=== PATIENT | male | born 1950 | race Two or more races ===

== ENCOUNTER 2019-05-17 10:58 | Inpatient (IN) | payer MEDICARE ==
[~2019-05-17] VITALS: Ht 170.2 cm; Wt 78.6 kg
[~2019-05-17 10:58] MED LIST: ASPI-630 PO; ATORVASTATIN CA80 MG PO; FINA5TAB4 PO; FURO-68 PO; GLIM4TAB4 PO; INSU100I11 SQ; INSU100I13 SQ; INSU100V6 SQ; ISOS30TA4 PO; METF10007 PO; METO-239 PO; SULF-143 PO; TAMS0.4C97 PO; TICA90TA PO
[2019-05-17 11:15] VITALS: BP 134/69
[2019-05-17] MEDS ORDERED: e (11:55)
[2019-05-17] MEDS ORDERED: INSU100V37 SQ (11:55)
[2019-05-17] MEDS ORDERED: INSU100C4 SQ (11:55)
[2019-05-17] MEDS ORDERED: CLOP75TA PO (11:55)
[2019-05-17] MEDS ORDERED: BUME1TAB3 PO (11:55)
[2019-05-17] MEDS ORDERED: METO5TAB4 PO (11:55)
[2019-05-17] MEDS ORDERED: POTA20TA4 PO (11:55)
--- NOTE | 2019-05-17 12:17 | NUR ---
IP: Pt has a hx of (R)E.coli with ESBL in urine on 12/07/18. Pt to be in contact precautions until there are 2 negative urine cultures 7 days apart without antibiotics.
[2019-05-17] MEDS: INSULIN LISPRO 300 UNITS/3 ML VIAL. SQ SCH ×2 (12:30→16:48)
[2019-05-17] MEDS: IV NORMAL SALINE 1000ML BAG 1,000 ML IV SCH (12:49)
--- NOTE | 2019-05-17 12:57 | NUR ---
Wound Care: Pt admitted to hospital from [facility], new pt to clinic today, Yakut speaking, accompanied by dtr, this nurse translated for pt during consult. Pt presents with bilateral DFUs, left worse than the right, see wound intervention for further details. Pt states he was admitted to the hospital in [place] on 04/14 for I&D of left foot d/t infection/swelling, [place] last . Paperwork shows that he was taking Levaquin and clindamycin oral while he was in [place] but not longer taking antibiotics at this time. Left foot with multiple necrotic wounds from dorsal to plantar, lateral side and 2nd toe. Dr. Metz recommending admission to hospital, vascular and ID consults. Report given to CONCHA Reed in 5S. Spoke with Dr. Myers as well regarding wound assessment by this RN. Pt agreeable to admission but both pt and dtr stated that they are not agreeable to amputation if that is the recommendation during hospitalization.
[2019-05-17] MEDS: SODIUM HYPOCHLORITE 0.125% 473 ML BOTTLE. TP SCH (13:16)
--- NOTE | 2019-05-17 13:30 | PDOC ---
Infectious Disease Note Vital Sign Vital Signs Vital Signs Date Time Temp Pulse Resp B/P (MAP) Pulse Ox O2 Delivery O2 Flow Rate FiO2 05/17/19 11:15 97.5 90 18 134/69 (90) 97 Room Air 97.5 Labs Lab Laboratory Tests Test 05/17/19 11:33 Glucose (Fingerstick) 69 mg/dL (70-99) Objective Assessment pt seen,, consult dictated Plan Plan of Care / STORM GIL MD May 17, 2019 13:30
--- NOTE | 2019-05-17 14:30 | HP ---
ADMIT DATE: 05/17/2019 CHIEF COMPLAINT: Severe foot wound. HISTORY OF PRESENT ILLNESS: The patient is a pleasant elderly male who has severe diabetic foot wound. He actually has wounds on both feet. The ulcer on the left foot is extremely severe. He apparently did undergo an angioplasty of that left lower extremity artery with Dr. Callahan within the recent past. He has been following up in [place]. They told him that they could heal the wound. He now came back to [place] and has been going to the [facility] today with Dr. Washington undressed the wound, his opinion was the foot obviously need to be amputated. Dr. Washington called me and explained the situation. I accepted the patient as a direct admit. He is now on the medical floor room 552 where he is accompanied by his daughter, she is translating. I had the wound care nurse to bring the pictures over, so I did not have to completely undress the foot again. The wounds are very impressive. It appears he needs to have a foot amputation on the left. The right also has a wound, but it is healing some. The daughter also has some pictures of the wound from a few months ago previous to his balloon angioplasty. Surprisingly the wound on the left does appear to be healing some, but still I think he is having to have an amputation. I told her that I could be wrong and that I wanted a second opinion from Vascular Surgery. For now, we are going to do wound care and IV antibiotics and have tried to call Vascular Surgery, but they are busy right now. Hopefully they will get back with her shortly. PAST MEDICAL HISTORY: Peripheral vascular disease, diabetes, hypertension, hyperlipidemia, chronic foot wounds, toe amputation, BPH. I suspect he might have an element of CHF because he is on isosorbide, beta-blockade and Bumex. ALLERGIES: None. FAMILY HISTORY: Coronary disease and diabetes. SOCIAL HISTORY: He does not drink, smoke or take drugs. He is retired. MEDICATIONS: Reviewed. He is on Flomax, Plavix, atorvastatin, isosorbide, metoprolol, potassium, Bumex, metolazone, insulin, finasteride. REVIEW OF SYSTEMS: GENERAL: No history of weight change, weakness or fevers. SKIN: No bruising, hair changes or rashes. EYES: No blurred, double or loss of vision. NOSE AND THROAT: No history of nosebleeds, hoarseness or sore throat. HEART: No history of palpitations, chest pain or shortness of breath on exertion. LUNGS: Denies cough, hemoptysis, wheezing or shortness of breath. GASTROINTESTINAL: Denies changes in appetite, nausea, vomiting, diarrhea or constipation. GENITOURINARY: No history of frequency, urgency, hesitancy or nocturia. NEUROLOGIC: Denies history of numbness, tingling, tremor or weakness. PSYCHIATRIC: He complains of some depression. ENDOCRINE: No history of heat or cold intolerance, polyuria or polydipsia. EXTREMITIES: He complains of severe foot pain. PHYSICAL EXAMINATION: VITALS: Within normal limits and are stable. GENERAL: No apparent distress. Alert and oriented. HEENT: Normal cephalic atraumatic, external auditory canals are patent EYES: Extraocular muscles are intact, pupils are equally round and reactive to light and accommodation MUSCULOSKELETAL: Well developed, well nourished, good range of motion ENDOCRINE: No thyromegaly was palpated LYMPHATICS: No cervical chain or axillary nodes were noted HEMATOPOIETIC: No bruising NECK: Supple, no JVD, no thyromegaly was noted. LUNGS: Clear to auscultation in all lung banks without rhonchi or wheezing. HEART: RRR, S1, S2 present. Peripheral pulses intact, no obvious murmurs were noted. ABDOMEN: Soft, nontender. Positive bowel sounds no organomegaly, normal bowel sounds. EXTREMITIES: He has severe foot wound on both feet, greater on the left than the right. Please refer to the pictures. NEUROLOGIC: Normal speech, normal tone. A and O and 3, moves all extremities, no obvious focal deficits. PSYCHIATRIC: Normal affect, normal mood. Stable. SKIN: No ulcerations or rashes, good skin turgor, no jaundice. VASCULAR: Good capillary refill, neurovascular bundle appears to be intact. LABORATORY DATA: Pending. ASSESSMENT AND PLAN: Severe peripheral vascular disease with severe diabetic foot wounds, greater on the left than the right. In my opinion, the left foot probably needs to be amputated, although I have to agree that it is healing a little bit. Because the daughter is here and she brought an old picture from her phone and is a little worse back then, but still is quite bad. I told her that I could be wrong, but that I would have Dr. Farfan give a second opinion. She asked how I could know that this needs to be amputated without any more studies and I told her this is simply a clinical diagnosis and not based on any studies at this time. She seems a little frustrated, but I understand that she is here to support dad. For now, we are going to do IV antibiotics, consult Dr. Farfan, home meds, DVT prophylaxis, full code, p.r.n. pain meds, wound care nurse to evaluate and treat. Nutritional consult, SIMEON ramos, clear liquid diet until he is seen by Surgery. Sliding scale insulin. Prognosis is extremely guarded at best. LUCI THRASHER DO DR: GLADYS/negrita JOB#: [id number] / [id number]
[2019-05-17 14:42] LABS: BASO % 0 % (0-3); EOS % 0 % (0-3); HEMATOCRIT 24.6 % (39.0-53.0); HEMOGLOBIN 7.9 g/dL (13.0-17.5); LYMPH # 0.7 x10^3/uL (1.0-4.8); LYMPH % 4 % (24-48); MEAN CORPUSCULAR HEMOGLOBIN 29 pg (25-35); MEAN CORPUSCULAR HGB CONC 32 g/dL (31-37); MEAN CORPUSCULAR VOLUME 89 fL (79-100); MONO % 7 % (0-9); NEUT # 14.2 x10^3/uL (1.8-7.7); NEUT % 89 % (31-73); PLATELET COUNT 395 x10^3/uL (140-400); RED BLOOD COUNT 2.78 x10^6/uL (4.30-5.70)
[2019-05-17 14:54] LABS: ALBUMIN 1.6 g/dL (3.4-5.0); ALBUMIN/GLOBULIN RATIO 0.4 (1.0-1.7); CALCIUM 7.8 mg/dL (8.5-10.1); CREATININE 1.7 mg/dL (0.7-1.3); POTASSIUM 3.4 mmol/L (3.5-5.1); TOTAL BILIRUBIN 0.3 mg/dL (0.2-1.0); TOTAL PROTEIN 6.1 g/dL (6.4-8.2)
[2019-05-17 15:00] VITALS: BP 138/64
[2019-05-17] MEDS: MEROPENEM 500 MG in IV NORMAL SALINE 50ML 50 ML IV SCH ×2 (15:32→22:08)
--- NOTE | 2019-05-17 15:32 | PDOC2 ---
CONSULT Date of Consult Date of Consult DATE: 05/17/19 TIME: 15:23 Identification/Chief Complaint Chief Complaint Bilateral diabetic foot wound History of Present Illness Reason for Visit: This is a pleasant 68-year-old Maltese-speaking male who re-presents with severe diabetic foot infection of the left lower extremity and a superficial wound to the right lower extremity. 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 There was chronic occlusion of the peroneal artery and posterior tibial artery at that time. The anterior tibial artery was the only vessel runoff which was significantly diseased throughout its course. Patient has had extensive debridement of his left foot in [place] at the end of March. He has had continued nonhealing since that time with exposed midfoot bony structure. Majority of the walking surface of the foot has been excised. The patient's daughter is at bedside and the patient's grandson who help translate today. Past Medical History Cardiovascular: CAD, CHF, HTN, Hyperlipidemia, Other Pulmonary: No pertinent hx CENTRAL NERVOUS SYSTEM: TIA Heme/Onc: Anemia NOS Musculoskeletal: Osteoarthritis Rheumatologic: No pertinent hx Infectious disease: No pertinent hx Renal/: Chronic renal insuff, UTI, Benign prostatic enlarg., Other Endocrine: Diabetes Past Surgical History Past Surgical History: Other Family History Family History: Diabetes, High Cholestrol, Hypertension Social History ALCOHOL: none Drugs: None Lives: with Family Current Medications Current Medications Current Medications Sodium Chloride 1,000 ml @ 75 mls/hr [id number] IV Last administered on 05/17/19at 12:49; Start 05/17/19 at 12:00 Bumetanide (Bumex) 1 mg [id number] PO ; Start 05/17/19 at 16:00 Clopidogrel Bisulfate (Plavix) 75 mg DAILY PO ; Start 05/18/19 at 09:00 Finasteride (Proscar) 5 mg DAILY PO ; Start 05/18/19 at 09:00 Isosorbide Mononitrate (Imdur) 30 mg DAILY PO ; Start 05/18/19 at 09:00 Metoprolol Succinate (Toprol Xl) 25 mg DAILY PO ; Start 05/18/19 at 09:00 Tamsulosin HCl (Flomax) 0.4 mg BID PO ; Start 05/17/19 at 21:00 Atorvastatin Calcium (Lipitor) 80 mg QHS PO ; Start 05/17/19 at 21:00 Insulin Human Lispro (HumaLOG) 8 units TIDWMEALS SQ ; Start 05/17/19 at 12:30 Insulin Glargine (Lantus Syringe) 20 unit QHS SQ ; Start 05/17/19 at 21:00; Stop 05/17/19 at 12:26; Status DC Metolazone (Zaroxolyn) 5 mg DAILY PO ; Start 05/18/19 at 09:00 Potassium Chloride (Klor-Con) 20 meq DAILYWBKFT PO ; Start 05/18/19 at 08:00 Insulin Glargine (Lantus Syringe) 20 unit QHS SQ ; Start 05/17/19 at 21:00 Sodium Hypochlorite (Dakin'S 1/4 Strength) 1 yg DAILY TP ; Start 05/17/19 at 13:30 Meropenem 500 mg/ Sodium Chloride 50 ml @ 100 mls/hr Q8HRS IV ; Start 05/17/19 at 14:00 Linezolid (Zyvox) 600 mg BID PO ; Start 05/17/19 at 14:00 Active Scripts Active Reported [e] Metolazone 5 Mg Tablet 5 Mg PO DAILY Clopidogrel (Clopidogrel Bisulfate) 75 Mg Tablet 1 Tab PO DAILY Bumetanide 1 Mg Tablet 1 Tab PO BID Tresiba (Insulin Degludec) 100 Unit/1 Ml Vial 20 Unit SQ HS Novolog (Insulin Aspart) 100 Unit/1 Ml Cartridge 8 Unit SQ TIDWMEALS Potassium Chloride 20 Meq Tablet.er 1 Tab PO DAILY 30 Days Finasteride 5 Mg Tablet 5 Mg PO DAILY Metoprolol Succinate ( Xl ) (Metoprolol Succinate) 25 Mg Tab.er.24h 25 Mg PO DAILY Isosorbide Mononitrate Er (Isosorbide Mononitrate) 30 Mg Tab.er.24h 30 Mg PO DAILY Atorvastatin Calcium 80 Mg Tablet 80 Mg PO DAILY Flomax (Tamsulosin Hcl) 0.4 Mg Cap.er.24h 0.4 Mg PO BID Allergies Allergies: Coded Allergies: I S O L A T I O N *CONTACT* (Verified Allergy, Unknown, 12/14/18) ESBL No Known Medication Allergies (Verified Allergy, Unknown, 12/14/18) ROS Skin: Yes Other (extensive bilateral foot wounds) Physical Exam General: Alert, Oriented X3, No acute distress HEENT: EOMI, Mucous membr. moist/pink Lungs: Clear to auscultation, Normal air movement Heart: Regular rate, Normal S1, Normal S2 Abdomen: Soft, No tenderness Extremities: No edema, Other (extensive tissue loss of the left foot with exposed midfoot bones and tendinous structure, there is surrounding granulation tissue, there is no evidence of purulent drainage, there is no malodor, there is no evidence of deep space abscess, significant portion of the plantar surface of the foot has been excised, there is a superficial wound isolated to the subcutaneous tissue on the dorsal surface of the right foot which is clean and granulating) Skin: Other (same as above) Neuro: Strength at 5/5 X4 ext, Cranial nerves 3-12 NL, Other (significant sensory loss to light touch bilaterally) Psych/Mental Status: Mental status NL, Mood NL MUSCULOSKELETAL: No muscular tenderness noted, Full range of motion without pain Vitals VITALS Vital Signs Date Time Temp Pulse Resp B/P (MAP) Pulse Ox O2 Delivery O2 Flow Rate FiO2 05/17/19 15:00 97.7 90 18 138/64 (88) 98 Room Air 97.7 Labs Labs Laboratory Tests Test 05/17/19 11:33 05/17/19 14:35 Glucose (Fingerstick) 69 mg/dL (70-99) White Blood Count 16.0 x10^3/uL (4.0-11.0) Red Blood Count 2.78 x10^6/uL (4.30-5.70) Hemoglobin 7.9 g/dL (13.0-17.5) Hematocrit 24.6 % (39.0-53.0) Mean Corpuscular Volume 89 fL (79-100) Mean Corpuscular Hemoglobin 29 pg (25-35) Mean Corpuscular Hemoglobin Concent 32 g/dL (31-37) Red Cell Distribution Width 17.0 % (11.5-14.5) Platelet Count 395 x10^3/uL (140-400) Neutrophils (%) (Auto) 89 % (31-73) Lymphocytes (%) (Auto) 4 % (24-48) Monocytes (%) (Auto) 7 % (0-9) Eosinophils (%) (Auto) 0 % (0-3) Basophils (%) (Auto) 0 % (0-3) Neutrophils # (Auto) 14.2 x10^3/uL (1.8-7.7) Lymphocytes # (Auto) 0.7 x10^3/uL (1.0-4.8) Monocytes # (Auto) 1.0 x10^3/uL (0.0-1.1) Eosinophils # (Auto) 0.0 x10^3/uL (0.0-0.7) Basophils # (Auto) 0.0 x10^3/uL (0.0-0.2) Sodium Level 142 mmol/L (136-145) Potassium Level 3.4 mmol/L (3.5-5.1) Chloride Level 105 mmol/L (98-107) Carbon Dioxide Level 29 mmol/L (21-32) Anion Gap 8 (6-14) Blood Urea Nitrogen 38 mg/dL (8-26) Creatinine 1.7 mg/dL (0.7-1.3) Estimated GFR (Cockcroft-Gault) 40.0 BUN/Creatinine Ratio 22 (6-20) Glucose Level 125 mg/dL (70-99) Calcium Level 7.8 mg/dL (8.5-10.1) Total Bilirubin 0.3 mg/dL (0.2-1.0) Aspartate Amino Transf (AST/SGOT) 23 U/L (15-37) Alanine Aminotransferase (ALT/SGPT) 39 U/L (16-63) Alkaline Phosphatase 395 U/L (46-116) Total Protein 6.1 g/dL (6.4-8.2) Albumin 1.6 g/dL (3.4-5.0) Albumin/Globulin Ratio 0.4 (1.0-1.7) Laboratory Tests Test 05/17/19 11:33 05/17/19 14:35 Glucose (Fingerstick) 69 mg/dL (70-99) White Blood Count 16.0 x10^3/uL (4.0-11.0) Red Blood Count 2.78 x10^6/uL (4.30-5.70) Hemoglobin 7.9 g/dL (13.0-17.5) Hematocrit 24.6 % (39.0-53.0) Mean Corpuscular Volume 89 fL (79-100) Mean Corpuscular Hemoglobin 29 pg (25-35) Mean Corpuscular Hemoglobin Concent 32 g/dL (31-37) Red Cell Distribution Width 17.0 % (11.5-14.5) Platelet Count 395 x10^3/uL (140-400) Neutrophils (%) (Auto) 89 % (31-73) Lymphocytes (%) (Auto) 4 % (24-48) Monocytes (%) (Auto) 7 % (0-9) Eosinophils (%) (Auto) 0 % (0-3) Basophils (%) (Auto) 0 % (0-3) Neutrophils # (Auto) 14.2 x10^3/uL (1.8-7.7) Lymphocytes # (Auto) 0.7 x10^3/uL (1.0-4.8) Monocytes # (Auto) 1.0 x10^3/uL (0.0-1.1) Eosinophils # (Auto) 0.0 x10^3/uL (0.0-0.7) Basophils # (Auto) 0.0 x10^3/uL (0.0-0.2) Sodium Level 142 mmol/L (136-145) Potassium Level 3.4 mmol/L (3.5-5.1) Chloride Level 105 mmol/L (98-107) Carbon Dioxide Level 29 mmol/L (21-32) Anion Gap 8 (6-14) Blood Urea Nitrogen 38 mg/dL (8-26) Creatinine 1.7 mg/dL (0.7-1.3) Estimated GFR (Cockcroft-Gault) 40.0 BUN/Creatinine Ratio 22 (6-20) Glucose Level 125 mg/dL (70-99) Calcium Level 7.8 mg/dL (8.5-10.1) Total Bilirubin 0.3 mg/dL (0.2-1.0) Aspartate Amino Transf (AST/SGOT) 23 U/L (15-37) Alanine Aminotransferase (ALT/SGPT) 39 U/L (16-63) Alkaline Phosphatase 395 U/L (46-116) Total Protein 6.1 g/dL (6.4-8.2) Albumin 1.6 g/dL (3.4-5.0) Albumin/Globulin Ratio 0.4 (1.0-1.7) Assessment/Plan Assessment/Plan Severe diabetic foot infection of the left lower extremity--I long conversation with the patient's daughter regarding my recommendations. I believe a below-knee amputation will be the best surgical procedure and the most functional procedure for the patient to become ambulatory again. There is no debridement option for the left foot. If the midfoot bones are removed the patient will have no structure of the foot and this will not be able to support his weight. There is no other surgical option for limb salvage. I described a below-knee amputation to the patient's daughter he will translate this to her father. They're going to discuss this and let us know how they would like to proceed. Next Superficial diabetic foot wound of the right lower extremity--this wound is nice and healthy with positive granulation tissue. I commend continued local wound care and dressing changes to prevent further breakdown and possible infection. All questions were answered to the patient's and his daughter satisfaction. Elin Britton DO, ELIN WONG DO May 17, 2019 15:32
[2019-05-17] MEDS: LINEZOLID 600 MG TABLET PO SCH ×2 (15:33→20:25)
[2019-05-17] MEDS: BUMETANIDE 1 MG TABLET. PO SCH (15:33)
[2019-05-17 16:49] LABS: % ATYL 1 % (0-0); % BANDS 3 % (0-9); % LYMPHS 3 % (24-48); % MONOS 5 % (0-10); % SEGS 88 % (35-66)
[2019-05-17 16:51] LABS: ANISOCYTOSIS SLIGHT; OVALOCYTES MOD; PLT ESTIMATE ADEQUATE (ADEQUATE); POLYCHROMASIA SLIGHT; TEAR DROP CELLS OCC
[2019-05-17 19:00] VITALS: BP 111/54
[2019-05-17] MEDS: ATORVASTATIN CALCIUM 40 MG TABLET. PO SCH (20:25)
[2019-05-17] MEDS: TAMSULOSIN 0.4 MG CAP.ER.24H. PO SCH (20:25)
[2019-05-17] MEDS: INSULIN GLARGINE SYRINGE. SQ SCH (20:36)
[2019-05-17] MEDS ORDERED: INSULIN GLARGINE SYRINGE. SQ SCH (21:00)
--- NOTE | 2019-05-17 21:34 | CONS ---
DATE OF CONSULTATION: 05/17/2019 REASON FOR CONSULTATION: Diabetic foot infection. HISTORY OF PRESENT ILLNESS: This is a 68-year-old gentleman who was admitted for foot infection. Apparently, the patient lives in [place] and he is here for a second opinion. The patient recently, about 10 days ago, had a surgery done in [place] and they have now recommended amputation, so hence the patient and the family decided to bring him here for a second opinion; that is the interpretation through the grandson who is sitting at the bedside. The patient denies any nausea, vomiting or diarrhea. Denies any chest pain, shortness of breath or abdominal pain. The patient has these wounds for a long time. According to the grandson, the patient lives in [place]. He has never lived here. PAST MEDICAL HISTORY: Positive for coronary artery disease, congestive heart failure, hypertension, diabetes, urinary retention, diabetic foot infection with a recent surgery done in [place]. SOCIAL HISTORY: Negative for smoking, alcohol or illicit drug use. ALLERGIES: No known drug allergies listed. ROS : as per HPI, rest systems reviewed and are neg. CURRENT MEDICATIONS: Reviewed. The patient is on no antibiotics. PHYSICAL EXAMINATION: VITAL SIGNS: Stable, afebrile. HEENT: NAD. NECK: Supple. No JVP, no lymphadenopathy. LUNGS: Clear. HEART: S1, S2 regular. ABDOMEN: Benign. EXTREMITIES: No edema or cyanosis. SKIN: Unremarkable other than right foot has a superficial dorsal wound. Left foot has a second toe necrotic wound and the plantar wound that goes deep into the exposed tendons and bone. Rest of skin examination is unremarkable. NEUROLOGIC: The patient is neurologically alert, awake and appropriate. No focal neurologic deficit. LABORATORY DATA: Nothing is done yet here. IMPRESSION: 1. Left foot diabetic foot infection, which by pictures it looks really bad vascular insufficiency as well as infection with a deep seated wound all the way to the tendons and bone. 2. Diabetes. 3. Hypertension. 4. Coronary artery disease. RECOMMENDATIONS: I would initiate meropenem and Zyvox. Get at least x-ray of the foot to start with. Vascular Surgery input is pending. Supportive care. I did get a different version of the story from the patient's RN through his daughter that the patient lives here and he was in [place] and he got treatment there and now he is back. Thank you very much, Dr. Myers, for giving me the opportunity to participate in this patient's care. STORM GIL MD DR: DEEP/negrita JOB#: [id number] / [id number] JV
[2019-05-17 23:00] VITALS: BP 126/75
[2019-05-18 03:00] VITALS: BP 119/65
[2019-05-18] MEDS: IV NORMAL SALINE 1000ML BAG 1,000 ML IV SCH ×3 (03:21→21:44)
[2019-05-18] MEDS: MEROPENEM 500 MG in IV NORMAL SALINE 50ML 50 ML IV SCH ×3 (05:46→21:44)
[2019-05-18 07:00] VITALS: BP 130/76
[2019-05-18] MEDS: metOLazone 2.5 MG TABLET PO SCH (08:30)
[2019-05-18] MEDS: LINEZOLID 600 MG TABLET PO SCH ×2 (08:30→20:28)
[2019-05-18] MEDS: FINASTERIDE 5 MG TABLET. PO SCH (08:30)
[2019-05-18] MEDS: BUMETANIDE 1 MG TABLET. PO SCH ×2 (08:30→17:02)
[2019-05-18] MEDS: POTASSIUM CHLORIDE 20 MEQ TABLET.ER. PO SCH (08:30)
[2019-05-18] MEDS: TAMSULOSIN 0.4 MG CAP.ER.24H. PO SCH ×2 (08:30→20:28)
[2019-05-18] MEDS: METOPROLOL SUCC 24HR ER 25 MG TAB.ER.24H. PO SCH (08:30)
[2019-05-18] MEDS: CLOPIDOGREL BISULFATE 75 MG TABLET PO SCH (08:30)
[2019-05-18] MEDS: ISOSORBIDE MONONITRATE ER 30 MG TAB.ER.24H PO SCH (08:31)
[2019-05-18] MEDS: INSULIN LISPRO 300 UNITS/3 ML VIAL. SQ SCH ×3 (08:35→16:41)
--- NOTE | 2019-05-18 09:34 | PDOC ---
Infectious Disease Note Subjective Subjective pt is feeling good, no complaints ROS ROS no n/v/d/sob/fever Vital Sign Vital Signs Vital Signs Date Time Temp Pulse Resp B/P (MAP) Pulse Ox O2 Delivery O2 Flow Rate FiO2 05/18/19 08:31 103 130/76 05/18/19 07:00 98.0 20 91 Room Air 98.0 Physical Exam PHYSICAL EXAM VITAL SIGNS: Stable, afebrile. HEENT: NAD. NECK: Supple. No JVP, no lymphadenopathy. LUNGS: Clear. HEART: S1, S2 regular. ABDOMEN: Benign. EXTREMITIES: No edema or cyanosis. SKIN: Unremarkable other than right foot has a superficial dorsal wound. Left foot has a second toe necrotic wound and the plantar wound that goes deep into the exposed tendons and bones. Rest of skin examination is unremarkable. NEUROLOGIC: The patient is neurologically alert, awake and appropriate. No focal neurologic deficit. Labs Lab Laboratory Tests Test 05/17/19 11:33 05/17/19 14:35 05/17/19 20:27 05/18/19 07:21 Glucose (Fingerstick) 69 mg/dL (70-99) 195 mg/dL (70-99) 163 mg/dL (70-99) White Blood Count 16.0 x10^3/uL (4.0-11.0) Red Blood Count 2.78 x10^6/uL (4.30-5.70) Hemoglobin 7.9 g/dL (13.0-17.5) Hematocrit 24.6 % (39.0-53.0) Mean Corpuscular Volume 89 fL (79-100) Mean Corpuscular Hemoglobin 29 pg (25-35) Mean Corpuscular Hemoglobin Concent 32 g/dL (31-37) Red Cell Distribution Width 17.0 % (11.5-14.5) Platelet Count 395 x10^3/uL (140-400) Neutrophils (%) (Auto) 89 % (31-73) Lymphocytes (%) (Auto) 4 % (24-48) Monocytes (%) (Auto) 7 % (0-9) Eosinophils (%) (Auto) 0 % (0-3) Basophils (%) (Auto) 0 % (0-3) Neutrophils # (Auto) 14.2 x10^3/uL (1.8-7.7) Lymphocytes # (Auto) 0.7 x10^3/uL (1.0-4.8) Monocytes # (Auto) 1.0 x10^3/uL (0.0-1.1) Eosinophils # (Auto) 0.0 x10^3/uL (0.0-0.7) Basophils # (Auto) 0.0 x10^3/uL (0.0-0.2) Segmented Neutrophils % 88 % (35-66) Band Neutrophils % 3 % (0-9) Lymphocytes % 3 % (24-48) Atypical Lymphocytes % (Manual) 1 % (0-0) Monocytes % 5 % (0-10) Platelet Estimate Adequate (ADEQUATE) Polychromasia Slight Anisocytosis Slight Tear Drop Cells Occ Ovalocytes Mod Erythrocyte Sedimentation Rate 86 (0-15) Sodium Level 142 mmol/L (136-145) Potassium Level 3.4 mmol/L (3.5-5.1) Chloride Level 105 mmol/L (98-107) Carbon Dioxide Level 29 mmol/L (21-32) Anion Gap 8 (6-14) Blood Urea Nitrogen 38 mg/dL (8-26) Creatinine 1.7 mg/dL (0.7-1.3) Estimated GFR (Cockcroft-Gault) 40.0 BUN/Creatinine Ratio 22 (6-20) Glucose Level 125 mg/dL (70-99) Calcium Level 7.8 mg/dL (8.5-10.1) Total Bilirubin 0.3 mg/dL (0.2-1.0) Aspartate Amino Transf (AST/SGOT) 23 U/L (15-37) Alanine Aminotransferase (ALT/SGPT) 39 U/L (16-63) Alkaline Phosphatase 395 U/L (46-116) Total Protein 6.1 g/dL (6.4-8.2) Albumin 1.6 g/dL (3.4-5.0) Albumin/Globulin Ratio 0.4 (1.0-1.7) Objective Assessment 1. Left foot diabetic foot infection, looks really bad vascular insufficiency as well as infection with a deep seated wound all the way to the tendons and bone. 2. Diabetes. 3. Hypertension. 4. Coronary artery disease. Plan Plan of Care pt has been recommended BKA, pt is not ready to that, he wants to go home and think about it options, discussed, iv alone will not work, they ( pt with his son ) wants to go home with oral antibiotics and think about it Potential to get septic discussed. d/c on po cipro and doxy ( not a good option from last urine culture, though that is old, and wound looks clean, and they do not want to do IV ) probiotics side effects explained STORM GIL MD May 18, 2019 09:34
--- NOTE | 2019-05-18 10:03 | PDOC ---
[facility] PROGRESS NOTE Chief Complaint Chief Complaint bilateral diabetic foot wounds History of Present Illness History of Present Illness 05/18/19 Pt seen and examined by me KATERYNA RN Spoke with pt and family regarding care Pt states that he does not want to stay for recommended L BKA Chart reviewed Vitals/I&O Vitals/I&O: Vital Signs Date Time Temp Pulse Resp B/P (MAP) Pulse Ox O2 Delivery O2 Flow Rate FiO2 05/18/19 08:31 103 130/76 05/18/19 08:00 Room Air 05/18/19 07:00 98.0 20 91 98.0 I & O 05/17/19 05/17/19 05/18/19 15:00 23:00 07:00 Intake Total 350 ml 640 ml 1000 ml Output Total 200 ml 0 ml Balance 150 ml 640 ml 1000 ml Physical Exam Physical Exam: VITAL SIGNS: Stable, afebrile. HEENT: NAD. NECK: Supple. No JVP, no lymphadenopathy. LUNGS: Clear. HEART: S1, S2 regular. ABDOMEN: Benign. EXTREMITIES: No edema or cyanosis. SKIN: Unremarkable other than right foot has a superficial dorsal wound. Left foot has a second toe necrotic wound and the plantar wound that goes deep into the exposed tendons and bones. Rest of skin examination is unremarkable. NEUROLOGIC: The patient is neurologically alert, awake and appropriate. No focal neurologic deficit. General: Alert, Oriented X3, No acute distress Heart: Regular rate, Normal S1, Normal S2 Lungs: Crackles Abdomen: Soft, No tenderness Extremities: No edema, Other (extensive tissue loss of the left foot with exposed midfoot bones and tendinous structure, there is surrounding granulation tissue, there is no evidence of purulent drainage, there is no malodor, there is no evidence of deep space abscess, significant portion of the plantar surface of the foot has been excised, there is a superficial wound isolated to the s ubcutaneous tissue on the dorsal surface of the right foot which is clean and granulating) Skin: Other (same as above) Labs Labs: Laboratory Tests Test 05/17/19 11:33 05/17/19 14:35 05/17/19 20:27 05/18/19 07:21 Glucose (Fingerstick) 69 mg/dL (70-99) 195 mg/dL (70-99) 163 mg/dL (70-99) White Blood Count 16.0 x10^3/uL (4.0-11.0) Red Blood Count 2.78 x10^6/uL (4.30-5.70) Hemoglobin 7.9 g/dL (13.0-17.5) Hematocrit 24.6 % (39.0-53.0) Mean Corpuscular Volume 89 fL (79-100) Mean Corpuscular Hemoglobin 29 pg (25-35) Mean Corpuscular Hemoglobin Concent 32 g/dL (31-37) Red Cell Distribution Width 17.0 % (11.5-14.5) Platelet Count 395 x10^3/uL (140-400) Neutrophils (%) (Auto) 89 % (31-73) Lymphocytes (%) (Auto) 4 % (24-48) Monocytes (%) (Auto) 7 % (0-9) Eosinophils (%) (Auto) 0 % (0-3) Basophils (%) (Auto) 0 % (0-3) Neutrophils # (Auto) 14.2 x10^3/uL (1.8-7.7) Lymphocytes # (Auto) 0.7 x10^3/uL (1.0-4.8) Monocytes # (Auto) 1.0 x10^3/uL (0.0-1.1) Eosinophils # (Auto) 0.0 x10^3/uL (0.0-0.7) Basophils # (Auto) 0.0 x10^3/uL (0.0-0.2) Segmented Neutrophils % 88 % (35-66) Band Neutrophils % 3 % (0-9) Lymphocytes % 3 % (24-48) Atypical Lymphocytes % (Manual) 1 % (0-0) Monocytes % 5 % (0-10) Platelet Estimate Adequate (ADEQUATE) Polychromasia Slight Anisocytosis Slight Tear Drop Cells Occ Ovalocytes Mod Erythrocyte Sedimentation Rate 86 (0-15) Sodium Level 142 mmol/L (136-145) Potassium Level 3.4 mmol/L (3.5-5.1) Chloride Level 105 mmol/L (98-107) Carbon Dioxide Level 29 mmol/L (21-32) Anion Gap 8 (6-14) Blood Urea Nitrogen 38 mg/dL (8-26) Creatinine 1.7 mg/dL (0.7-1.3) Estimated GFR (Cockcroft-Gault) 40.0 BUN/Creatinine Ratio 22 (6-20) Glucose Level 125 mg/dL (70-99) Calcium Level 7.8 mg/dL (8.5-10.1) Total Bilirubin 0.3 mg/dL (0.2-1.0) Aspartate Amino Transf (AST/SGOT) 23 U/L (15-37) Alanine Aminotransferase (ALT/SGPT) 39 U/L (16-63) Alkaline Phosphatase 395 U/L (46-116) Total Protein 6.1 g/dL (6.4-8.2) Albumin 1.6 g/dL (3.4-5.0) Albumin/Globulin Ratio 0.4 (1.0-1.7) Review of Systems Review of Systems: (-) CP, SOB Assessment and Plan Assessmemt and Plan Assessment: Bilateral foot wound Diabetes HTN Vascular insufficiency CAD Plan: discussed care with ID and vascular surgery, recommended L BKA and IV abx Pt prefers to go home and think about it d/c on PO abx dvt ppx PT/OT home meds full code Comment Review of Relevant I have reviewed the following items john (where applicable) has been applied. Medications: Current Medications Medications (Trade) Dose Ordered Sig/Rose Route PRN Reason Start Time Stop Time Status Last Admin Dose Admin Sodium Chloride 1,000 ml @ 75 mls/hr [id number] IV 05/17/19 12:00 05/18/19 03:21 Bumetanide (Bumex) 1 mg [id number] PO 05/17/19 16:00 05/18/19 08:30 Clopidogrel Bisulfate (Plavix) 75 mg DAILY PO 05/18/19 09:00 05/18/19 08:30 Finasteride (Proscar) 5 mg DAILY PO 05/18/19 09:00 05/18/19 08:30 Isosorbide Mononitrate (Imdur) 30 mg DAILY PO 05/18/19 09:00 05/18/19 08:31 Metoprolol Succinate (Toprol Xl) 25 mg DAILY PO 05/18/19 09:00 05/18/19 08:30 Tamsulosin HCl (Flomax) 0.4 mg BID PO 05/17/19 21:00 05/18/19 08:30 Atorvastatin Calcium (Lipitor) 80 mg QHS PO 05/17/19 21:00 05/17/19 20:25 Insulin Human Lispro (HumaLOG) 8 units TIDWMEALS SQ 05/17/19 12:30 05/18/19 08:35 Metolazone (Zaroxolyn) 5 mg DAILY PO 05/18/19 09:00 05/18/19 08:30 Potassium Chloride (Klor-Con) 20 meq DAILYWBKFT PO 05/18/19 08:00 05/18/19 08:30 Insulin Glargine (Lantus Syringe) 20 unit QHS SQ 05/17/19 21:00 05/17/19 20:36 Meropenem 500 mg/ Sodium Chloride 50 ml @ 100 mls/hr Q8HRS IV 05/17/19 14:00 05/18/19 05:46 Linezolid (Zyvox) 600 mg BID PO 05/17/19 14:00 05/18/19 08:30 LUCI THRASHER III DO May 18, 2019 10:03
[2019-05-18 11:00] VITALS: BP 135/77
--- NOTE | 2019-05-18 11:04 | RAD ---
EXAM: AP and lateral views left foot DATE: 05/17/2019 2:37 PM INDICATION: Left foot wound COMPARISON: No Prior FINDINGS/ IMPRESSION: Amputation changes mid shaft first metatarsal are seen. Subtle erosive change cortical thinning at the medial most margin of the metatarsal shaft portion may be seen with osteomyelitis. However this can be confirmed by MRI if clinically indicated. Extensive soft tissue swelling and defect at the medial aspect of the forefoot, midfoot. Atherosclerotic vascular calcifications are seen. Electronically signed by: Amado Mullen MD (05/18/2019 11:01 AM) [id number]
--- NOTE | 2019-05-18 11:41 | SNU/HH DC ---
DISCHARGE WITH HOME HEALTH DISCHARGE INFORMATION: Condition on Discharge: Stable CODE STATUS: Code Status: Full HOME HEALTH: Face to Face: I certify this patient is under my care and that I, or a nurse practitioner or physician's assistant cross country coach working with me, had a face to face encounter that meets the physician face to face encounter requirements with this patient on []. Medical Complications: Other (severe left foot wound) Nursing Home For: Other: (wound care) RN For Eval/Treatment: Yes Physical Therapy For: Evalulation/Treatment Speech Language Pathology For: Evaluation/Treatment Home Health Aide For: Self-care PANEL COVERER For: Community Resources (L foot wound) Pt Meets Homebound Status: Poor coordination w/ amb. POST DISCHARGE ORDERS: Activity Instructions for Disc: Activity as tolerated Weight Bearing Status after Di: As tolerated Bathing Instructions: Shower-keep dressing dry DIET AFTER DISCHARGE: ADA Wound/Incision Care: No wound care needed CHECKS AFTER DISCHARGE: Checks after discharge: Check blood press - daily, Check blood sugar, ac/hs, Check your Temp as needed TREATMENT/EQUIPMENT ORDERS: Adaptive Equipment Issued: David CERTIFICATION STATEMENT: Certification Statement: Certification Statement: Based on the above finding, I certify that this patient is confined to the home and needs intermittent detention care, physical therapy and/or speech therapy, or continues to need occupational therapy.~ This patient is under my care, and I have initiated the establishment of the plan of care.~ This patient will be followed by myself or a community physician who will periodically review the plan of care. Home Meds Reported Medications [e] No Conflict Check 05/17/19 Metolazone (METOLAZONE) 5 Mg Tablet, 5 MG PO DAILY for ppx, #30 TAB 0 Refills 05/17/19 Clopidogrel Bisulfate (CLOPIDOGREL) 75 Mg Tablet, 1 TAB PO DAILY for PPX, #90 TAB 1 Refill 05/17/19 Bumetanide (BUMETANIDE) 1 Mg Tablet, 1 TAB PO BID for CHF, #90 TAB 1 Refill 05/17/19 Insulin Degludec (Tresiba) 100 Unit/1 Ml Vial, 20 UNIT SQ HS for DM, EACH 05/17/19 Insulin Aspart (NOVOLOG) 100 Unit/1 Ml Cartridge, 8 UNIT SQ TIDWMEALS for DM, EACH 05/17/19 Potassium Chloride (POTASSIUM CHLORIDE) 20 Meq Tablet.er, 1 TAB PO DAILY for supplement for 30 Days, #30 TAB 0 Refills 05/17/19 Finasteride (FINASTERIDE) 5 Mg Tablet, 5 MG PO DAILY for heart health, TAB 12/08/18 Metoprolol Succinate (METOPROLOL SUCCINATE ( XL )) 25 Mg Tab.er.24h, 25 MG PO DAILY for FOR HYPERTENSION, #30 TAB 0 Refills 12/08/18 Isosorbide Mononitrate (ISOSORBIDE MONONITRATE ER) 30 Mg Tab.er.24h, 30 MG PO DAILY for heart health, TAB.SR 12/08/18 Atorvastatin Calcium (ATORVASTATIN CALCIUM) 80 Mg Tablet, 80 MG PO DAILY for FOR CHOLESTEROL, #30 TAB 0 Refills 12/08/18 Tamsulosin Hcl (FLOMAX) 0.4 Mg Cap.er.24h, 0.4 MG PO BID for prostate , TAB 12/08/18 LUCI THRASHER III DO May 18, 2019 11:41
--- NOTE | 2019-05-18 11:56 | NUR ---
SW following for discharge planning. Discussed with RN, pt is from home with family. Pt discharging home with home health today as it not sure about having an amputation. SW met with pt and pt's family, they would like to speak with Laverne Willis to discuss home health. SW notified Lazaro Galloway RN and pt's RN. SW will continue to follow.
[2019-05-18] MEDS: SODIUM HYPOCHLORITE 0.125% 473 ML BOTTLE. TP SCH (12:40)
--- NOTE | 2019-05-18 14:36 | NUR ---
Spoke with pt and his family members re: follow up with WC in outpatient setting once he is discharge from hospital, I also talked to him about rethinking his decision on IV antibiotics as he is unwilling to accept the recommendations for amputation, explained that more options such as a wound vac placement could be added to his wound care if would be willing to compromise to IV abx therapy instead of PO, along with other studies such as MRI in outpatient setting as it was explained to him yesterday at his consult with Dr. Metz. After a long discussion with pt and family he is willing to start process so he can go with home IV antibiotics. This was communicated with CONCHA Quintero, Dr. Myers and Dr. Yuliana Gates. Pt is aware that he will need to stay another night for PICC placement and that he will need to follow up for appts in outpatient setting, pt and family members verbalized understanding. Addendum: 05/18/19 at 1701 by SERENITY HERZOG RN Wound Care note
[2019-05-18 15:00] VITALS: BP 131/78
--- NOTE | 2019-05-18 15:10 | NUR ---
BROCK following. [facility]. Pt is now needing IV abx, Dr. Gates is determining which abx. Pt will not be able to do home infusion due to insurance. From wound care note it appears pt aware he will have to come in to do it outpatient. SW will continue to follow.
[2019-05-18 19:00] VITALS: BP 112/62
[2019-05-18] MEDS: LACTOBACILLUS RHAMNOSUS GG 1 CAPSULE. PO SCH (20:27)
[2019-05-18] MEDS: ATORVASTATIN CALCIUM 40 MG TABLET. PO SCH (20:27)
[2019-05-18] MEDS: INSULIN GLARGINE SYRINGE. SQ SCH (21:48)
[2019-05-18 23:00] VITALS: BP 115/71
[2019-05-19 02:42] VITALS: BP 116/68
[2019-05-19] MEDS: MEROPENEM 500 MG in IV NORMAL SALINE 50ML 50 ML IV SCH ×3 (05:56→21:20)
[2019-05-19 07:00] VITALS: BP 136/71
[2019-05-19] MEDS: LINEZOLID 600 MG TABLET PO SCH (08:19)
[2019-05-19] MEDS: metOLazone 2.5 MG TABLET PO SCH (08:19)
[2019-05-19] MEDS: BUMETANIDE 1 MG TABLET. PO SCH ×2 (08:19→16:18)
[2019-05-19] MEDS: POTASSIUM CHLORIDE 20 MEQ TABLET.ER. PO SCH (08:20)
[2019-05-19] MEDS: CLOPIDOGREL BISULFATE 75 MG TABLET PO SCH (08:20)
[2019-05-19] MEDS: FINASTERIDE 5 MG TABLET. PO SCH (08:20)
[2019-05-19] MEDS: TAMSULOSIN 0.4 MG CAP.ER.24H. PO SCH ×2 (08:21→21:16)
[2019-05-19] MEDS: ISOSORBIDE MONONITRATE ER 30 MG TAB.ER.24H PO SCH (08:22)
[2019-05-19] MEDS: LACTOBACILLUS RHAMNOSUS GG 1 CAPSULE. PO SCH ×2 (08:22→21:16)
[2019-05-19] MEDS: METOPROLOL SUCC 24HR ER 25 MG TAB.ER.24H. PO SCH (08:22)
[2019-05-19] MEDS: INSULIN LISPRO 300 UNITS/3 ML VIAL. SQ SCH ×3 (08:28→16:59)
[2019-05-19] MEDS: SODIUM HYPOCHLORITE 0.125% 473 ML BOTTLE. TP SCH (08:42)
--- NOTE | 2019-05-19 09:37 | PDOC ---
Infectious Disease Note Subjective Subjective pt is feeling good, no complaints ROS ROS no n/v/d/sob Vital Sign Vital Signs Vital Signs Date Time Temp Pulse Resp B/P (MAP) Pulse Ox O2 Delivery O2 Flow Rate FiO2 05/19/19 08:22 101 136/74 05/19/19 07:50 Room Air 05/19/19 07:00 99.3 18 93 99.3 Physical Exam PHYSICAL EXAM VITAL SIGNS: Stable, afebrile. HEENT: NAD. NECK: Supple. No JVP, no lymphadenopathy. LUNGS: Clear. HEART: S1, S2 regular. ABDOMEN: Benign. EXTREMITIES: No edema or cyanosis. SKIN: Unremarkable other than right foot has a superficial dorsal wound. Left foot has a second toe necrotic wound and the plantar wound that goes deep into the exposed tendons and bones. Rest of skin examination is unremarkable. NEUROLOGIC: The patient is neurologically alert, awake and appropriate. No focal neurologic deficit. Labs Lab Laboratory Tests Test 05/18/19 11:46 05/18/19 16:38 05/18/19 17:08 05/18/19 21:03 Glucose (Fingerstick) 126 mg/dL (70-99) 56 mg/dL (70-99) 90 mg/dL (70-99) 172 mg/dL (70-99) Test 05/19/19 07:36 Glucose (Fingerstick) 150 mg/dL (70-99) Objective Assessment 1. Left foot diabetic foot infection, looks really bad vascular insufficiency as well as infection with a deep seated wound all the way to the tendons and bone. 2. Diabetes. 3. Hypertension. 4. Coronary artery disease. Plan Plan of Care pt has been recommended BKA, pt is not ready to that, he wants to go home and think about it options, discussed, iv alone will not work, they ( pt with his son ) wants to go home with oral antibiotics and think about it pt and family now wants to try aggressive, and do iv antibiotics and wound care again d/w pt and family , pros and conds, side effects, logistic difficulty all discussed, they want to think about it probiotics STORM GIL MD May 19, 2019 09:37
--- NOTE | 2019-05-19 09:46 | NUR ---
BROCK following. Discussed with RN. BROCK met with pt and family, they are trying to decide between SNU vs home with outpatient IV abx. BROCK advised of facilities nearby as well as [facility] as pt has possibility of needing daptomycin. BROCK requested family decide by noon today in order for SW to have referrals sent as well as an acceptance due to the holiday tomorrow. BROCK will continue to follow. Addendum: 05/19/19 at 1454 by NIEVES GUTIÉRREZ BROCK has met with pt and family multiple times throughout the day. Family is trying to decide whether to amputate the foot or not. Multiple people have spoken with family. Explanations about SNU, insurance, home infusion, home health, outpatient therapy have been given multiple times to multiple family members. Pt reported he can kind of walk right now, SW explained some facilities have special programs and focus on pt's with amputations, and pt can get a prosthetic leg and be able to walk again. family preservation caseworkerMagali has also been speaking with family. BROCK awaiting decision. Addendum: 05/19/19 at 1535 by NIEVES GUTIÉRREZ Pt has decided to go ahead with the amputation. RN notified. SW will follow up on Friday.
[2019-05-19] MEDS ORDERED: LIDOCAINE WITH 8.4% SOD BICARB 3 ML DISP.SYRIN. ONE (10:05)
[2019-05-19] MEDS ORDERED: LIDOCAINE WITH 8.4% SOD BICARB 3 ML DISP.SYRIN. INJ ONE (11:00)
--- NOTE | 2019-05-19 11:10 | PDOC ---
[facility] [facility] PROGRESS NOTE Chief Complaint Chief Complaint bilateral diabetic foot wounds History of Present Illness History of Present Illness 05/18/19 Pt seen and examined by me AVENDAÑO RN Spoke with pt and family regarding care Pt states that he does not want to stay for recommended L BKA Chart reviewed 05/19/19 Pt seen and examined by Pt sitting in chair comfortably Discussed care with patient and family at bedside KATERYNA RN Chart reviewed Vitals/I&O Vitals/I&O: Vital Signs Date Time Temp Pulse Resp B/P (MAP) Pulse Ox O2 Delivery O2 Flow Rate FiO2 05/19/19 08:22 101 136/74 05/19/19 07:50 Room Air 05/19/19 07:00 99.3 18 93 99.3 I & O 05/18/19 05/18/19 05/19/19 15:00 23:00 07:00 Intake Total 500 ml 0 ml Output Total 500 ml 300 ml Balance 500 ml -500 ml -300 ml Physical Exam Physical Exam: VITAL SIGNS: Stable, afebrile. HEENT: NAD. NECK: Supple. No JVP, no lymphadenopathy. LUNGS: Clear. HEART: S1, S2 regular. ABDOMEN: Benign. EXTREMITIES: No edema or cyanosis. SKIN: Unremarkable other than right foot has a superficial dorsal wound. Left foot has a second toe necrotic wound and the plantar wound that goes deep into the exposed tendons and bones. Rest of skin examination is unremarkable. NEUROLOGIC: The patient is neurologically alert, awake and appropriate. No focal neurologic deficit. General: Alert, Oriented X3, No acute distress Heart: Regular rate, Normal S1, Normal S2 Lungs: Crackles Abdomen: Soft, No tenderness Extremities: No edema, Other (extensive tissue loss of the left foot with exposed midfoot bones and tendinous structure, there is surrounding granulation tissue, there is no evidence of purulent drainage, there is no malodor, there is no evidence of deep space abscess, significant portion of the plantar surface of the foot has been excised, there is a superficial wound isolated to the subcutaneous tissue on the dorsal surface of the right foot which is clean and granulating) Skin: Other (same as above) Labs Labs: Laboratory Tests Test 05/18/19 11:46 05/18/19 16:38 05/18/19 17:08 05/18/19 21:03 Glucose (Fingerstick) 126 mg/dL (70-99) 56 mg/dL (70-99) 90 mg/dL (70-99) 172 mg/dL (70-99) Test 05/19/19 07:36 Glucose (Fingerstick) 150 mg/dL (70-99) Review of Systems Review of Systems: (-) CP, SOB Assessment and Plan Assessmemt and Plan Assessment: Bilateral foot wound Diabetes HTN Vascular insufficiency CAD Plan: discussed care with ID and vascular surgery, recommended L BKA and IV abx Family considering options dvt ppx PT/OT home meds full code Comment Review of Relevant I have reviewed the following items john (where applicable) has been applied. Medications: Current Medications Medications (Trade) Dose Ordered Sig/Rose Route PRN Reason Start Time Stop Time Status Last Admin Dose Admin Lactobacillus Rhamnosus (Culturelle) 1 cap BID PO 05/18/19 21:00 05/19/19 08:22 LUCI THRASHER III DO May 19, 2019 11:10
[2019-05-19] MEDS: DAPTOmycin (GENERIC) IVPB 320 MG in IV NORMAL SALINE 50ML 50 ML IV SCH (11:44)
[2019-05-19] MEDS: MULTIVITAMIN with MINERAL TABLET. PO SCH (12:17)
[2019-05-19 14:39] VITALS: BP 97/49
--- NOTE | 2019-05-19 14:52 | RAD ---
Procedure: Upper extremity PICC line placement Clinical Indication: Adult male requiring central venous access Sedation: Local anesthesia only was provided Antibiotics: None Fluoro Time: 0.1 minutes. Images: 1 Contrast: None Sterility: All elements of maximal sterile barrier technique including the use of a cap, mask, sterile gown, sterile gloves, large sterile sheet, appropriate hand hygiene, and 2% chlorhexidine for cutaneous antisepsis (or acceptable alternative antiseptic per current guidelines) were followed for this procedure. Consent: The procedure was explained in its entirety to the patient or the patients designated security systems sales representative by a member of the treatment team, including a discussion of the risks, benefits and commonly accepted alternatives to the procedure, as well as the expected consequences of no therapy whatsoever. Discussion of the risks included, but was not limited to, those that are most frequent and those that are rare but possibly severe or life-threatening, as well as the possibility of unforeseen complications. Technique and Findings: Following informed consent, the patient was prepped and draped in the usual sterile fashion. Ultrasound interrogation of the right arm revealed patency and compressibility of the brachial vein. A hard copy ultrasound image was recorded. 1% Lidocaine was used to achieve local anesthesia and a 21-gauge micropuncture needle was used to gain access to the targeted vein. The needle was exchanged over wire for a 5 Italian peel-away sheath which was used to deploy a PICC line under fluoroscopic guidance such that the distal tip resided at the cavoatrial junction. The catheter flushed and aspirated with ease and was sutured to the skin. Complications: No immediate Impression: 1. Ultrasound guided PICC line placement as described.
--- NOTE | 2019-05-19 15:47 | NUR ---
Wound Care: Wound care follow up for bilateral DFUs. All wounds were cleaned and redressed today, see wound intervention for dressing details, wound care recommendations left in room. This RN spoke with pt and his family members multiple times throughout the day in regards of pt's options. I answered pt's questions to the best of my knowledge, educated pt on follow ups needed if he opts for IV antibiotics and wound care vs amputation. I met with pt and his family per his request, answered all his questions and his concerns, explained the risks if he chooses to go home with an open wound. Pt's children at bedside when this RN was speaking with pt. After multiple lengthy discussions with pt, pt verbalized understanding to benefits and risks of his options and pt stated that he has decided to go for the amputation, BROCK Rod and CONCHA Quintero both notified of pt's decision. Pt is aware that this decision involves longer stay in the hospital, pt verbalized understanding. WC will follow up with pt on 05/25.
--- NOTE | 2019-05-19 15:51 | NUR ---
Patient and family have made the decision to go through with the [facility]ON after much discussion with Magali KERN from wound care.
[2019-05-19 19:00] VITALS: BP 126/57
[2019-05-19] MEDS: INSULIN GLARGINE SYRINGE. SQ SCH (21:00)
[2019-05-19] MEDS: ATORVASTATIN CALCIUM 40 MG TABLET. PO SCH (21:16)
[2019-05-19 23:00] VITALS: BP 108/63
[2019-05-20 03:00] VITALS: BP 123/67
[2019-05-20] MEDS: MEROPENEM 500 MG in IV NORMAL SALINE 50ML 50 ML IV SCH ×3 (06:25→22:14)
[2019-05-20 07:00] VITALS: BP 108/65
[2019-05-20] MEDS: SODIUM HYPOCHLORITE 0.125% 473 ML BOTTLE. TP SCH (09:00)
[2019-05-20] MEDS: POTASSIUM CHLORIDE 20 MEQ TABLET.ER. PO SCH (09:04)
[2019-05-20] MEDS: metOLazone 2.5 MG TABLET PO SCH (09:04)
[2019-05-20] MEDS: TAMSULOSIN 0.4 MG CAP.ER.24H. PO SCH ×2 (09:04→22:13)
[2019-05-20] MEDS: ISOSORBIDE MONONITRATE ER 30 MG TAB.ER.24H PO SCH (09:05)
[2019-05-20] MEDS: MULTIVITAMIN with MINERAL TABLET. PO SCH (09:05)
[2019-05-20] MEDS: METOPROLOL SUCC 24HR ER 25 MG TAB.ER.24H. PO SCH (09:05)
[2019-05-20] MEDS: LACTOBACILLUS RHAMNOSUS GG 1 CAPSULE. PO SCH ×2 (09:05→22:13)
[2019-05-20] MEDS: FINASTERIDE 5 MG TABLET. PO SCH (09:05)
[2019-05-20] MEDS: CLOPIDOGREL BISULFATE 75 MG TABLET PO SCH (09:05)
[2019-05-20] MEDS: BUMETANIDE 1 MG TABLET. PO SCH ×2 (09:11→16:24)
[2019-05-20] MEDS: DAPTOmycin (GENERIC) IVPB 320 MG in IV NORMAL SALINE 50ML 50 ML IV SCH (09:12)
[2019-05-20] MEDS: INSULIN LISPRO 300 UNITS/3 ML VIAL. SQ SCH ×3 (09:19→17:49)
--- NOTE | 2019-05-20 09:39 | PDOC ---
Infectious Disease Note Subjective Subjective pt is feeling good, no complaints Vital Sign Vital Signs Vital Signs Date Time Temp Pulse Resp B/P (MAP) Pulse Ox O2 Delivery O2 Flow Rate FiO2 05/20/19 09:05 101 108/65 05/20/19 07:00 98.0 18 95 Room Air 98.0 Physical Exam PHYSICAL EXAM VITAL SIGNS: Stable, afebrile. HEENT: NAD. NECK: Supple. No JVP, no lymphadenopathy. LUNGS: Clear. HEART: S1, S2 regular. ABDOMEN: Benign. EXTREMITIES: No edema or cyanosis. SKIN: Unremarkable other than right foot has a superficial dorsal wound. Left foot has a second toe necrotic wound and the plantar wound that goes deep into the exposed tendons and bones. Rest of skin examination is unremarkable. NEUROLOGIC: The patient is neurologically alert, awake and appropriate. No focal neurologic deficit. Labs Lab Laboratory Tests Test 05/19/19 12:18 05/19/19 16:50 05/19/19 21:14 05/20/19 07:13 Glucose (Fingerstick) 133 mg/dL (70-99) 209 mg/dL (70-99) 127 mg/dL (70-99) 206 mg/dL (70-99) Objective Assessment 1. Left foot diabetic foot infection, looks really bad vascular insufficiency as well as infection with a deep seated wound all the way to the tendons and bone. 2. Diabetes. 3. Hypertension. 4. Coronary artery disease. Plan Plan of Care pt has now decided to have amputation cont antibiotics til amputation d/w pt and son in detail STORM GIL MD May 20, 2019 09:39
--- NOTE | 2019-05-20 10:43 | NUR ---
maylin segura's nonadmin as pt dressings are c/d/i scheduled to be changed 05/21
[2019-05-20 11:00] VITALS: BP 110/61
[2019-05-20 11:29] LABS: HEMATOCRIT 24.9 % (39.0-53.0); HEMOGLOBIN 8.2 g/dL (13.0-17.5); RED BLOOD COUNT 2.81 x10^6/uL (4.30-5.70); RED CELL DISTRIBUTION WIDTH 17.4 % (11.5-14.5); WHITE BLOOD COUNT 16.5 x10^3/uL (4.0-11.0)
[2019-05-20 11:41] LABS: ALBUMIN 1.6 g/dL (3.4-5.0); ALBUMIN/GLOBULIN RATIO 0.3 (1.0-1.7); GFR 33.2; TOTAL BILIRUBIN 0.5 mg/dL (0.2-1.0); TOTAL PROTEIN 6.3 g/dL (6.4-8.2)
[2019-05-20 15:00] VITALS: BP 132/75
--- NOTE | 2019-05-20 15:46 | PDOC ---
PROGRESS NOTES Chief Complaint Chief Complaint bilateral diabetic foot wounds coronary artery disease Congestive heart failure Hypertension Diabetes Urinary retention Diabetic foot infection with a recent surgery done in [place] History of Present Illness History of Present Illness Mr Denise is a 68 yo M w/ PMHx CAD, HTN, CHF, DM2 who is admitted for foot infection. Apparently, the patient lives in [place] and he is here for a second opinion. The patient recently, about 10 days prior to admit, had a surgery done in [place] and they have now recommended amputation, so hence the patient and the family decided to bring him here for a second opinion. L BKA has been recommended by vascular surgery. PICC in place on 05/19/19. Seen by ID and vascular. Patient amenable to L BKA at this point. Still with pain on ambulation. No CP or SOB. 05/18/19 Pt seen and examined by me AVENDAÑO RN Spoke with pt and family regarding care Pt states that he does not want to stay for recommended L BKA Chart reviewed 05/19/19 Pt seen and examined by Pt sitting in chair comfortably Discussed care with patient and family at bedside KATERYNA RN Chart reviewed Vitals Vitals Vital Signs Date Time Temp Pulse Resp B/P (MAP) Pulse Ox O2 Delivery O2 Flow Rate FiO2 05/20/19 11:00 97.9 95 18 110/61 (77) 95 Room Air 97.9 Physical Exam Physical Exam VITAL SIGNS: Stable, afebrile. HEENT: NAD. NECK: Supple. No JVP, no lymphadenopathy. LUNGS: Clear. HEART: S1, S2 regular. ABDOMEN: Benign. EXTREMITIES: No edema or cyanosis. SKIN: Unremarkable other than right foot has a superficial dorsal wound. Left foot has a second toe necrotic wound and the plantar wound that goes deep into the exposed tendons and bones. Rest of skin examination is unremarkable. NEUROLOGIC: The patient is neurologically alert, awake and appropriate. No focal neurologic deficit. General: Alert, Oriented X3, No acute distress Heart: Regular rate, Normal S1, Normal S2 Lungs: Crackles Abdomen: Soft, No tenderness Extremities: No edema, Other (extensive tissue loss of the left foot with exposed midfoot bones and tendinous structure, there is surrounding granulation tissue, there is no evidence of purulent drainage, there is no malodor, there is no evidence of deep space abscess, significant portion of the plantar surface of the foot has been excised, there is a superficial wound isolated to the subcutan eous tissue on the dorsal surface of the right foot which is clean and granulating) Skin: Other (same as above) Labs LABS Laboratory Tests Test 05/19/19 16:50 05/19/19 21:14 05/20/19 07:13 05/20/19 10:53 Glucose (Fingerstick) 209 mg/dL (70-99) 127 mg/dL (70-99) 206 mg/dL (70-99) 286 mg/dL (70-99) Test 05/20/19 11:23 White Blood Count 16.5 x10^3/uL (4.0-11.0) Red Blood Count 2.81 x10^6/uL (4.30-5.70) Hemoglobin 8.2 g/dL (13.0-17.5) Hematocrit 24.9 % (39.0-53.0) Mean Corpuscular Volume 89 fL (79-100) Mean Corpuscular Hemoglobin 29 pg (25-35) Mean Corpuscular Hemoglobin Concent 33 g/dL (31-37) Red Cell Distribution Width 17.4 % (11.5-14.5) Platelet Count 324 x10^3/uL (140-400) Sodium Level 139 mmol/L (136-145) Potassium Level 4.0 mmol/L (3.5-5.1) Chloride Level 101 mmol/L (98-107) Carbon Dioxide Level 29 mmol/L (21-32) Anion Gap 9 (6-14) Blood Urea Nitrogen 53 mg/dL (8-26) Creatinine 2.0 mg/dL (0.7-1.3) Estimated GFR (Cockcroft-Gault) 33.2 BUN/Creatinine Ratio 27 (6-20) Glucose Level 295 mg/dL (70-99) Calcium Level 8.0 mg/dL (8.5-10.1) Total Bilirubin 0.5 mg/dL (0.2-1.0) Aspartate Amino Transf (AST/SGOT) 35 U/L (15-37) Alanine Aminotransferase (ALT/SGPT) 40 U/L (16-63) Alkaline Phosphatase 367 U/L (46-116) Total Protein 6.3 g/dL (6.4-8.2) Albumin 1.6 g/dL (3.4-5.0) Albumin/Globulin Ratio 0.3 (1.0-1.7) Comment Review of Relevant I have reviewed the following items john (where applicable) has been applied. Labs Laboratory Tests Test 05/18/19 16:38 05/18/19 17:08 05/18/19 21:03 05/19/19 07:36 Glucose (Fingerstick) 56 mg/dL (70-99) 90 mg/dL (70-99) 172 mg/dL (70-99) 150 mg/dL (70-99) Test 05/19/19 12:18 05/19/19 16:50 05/19/19 21:14 05/20/19 07:13 Glucose (Fingerstick) 133 mg/dL (70-99) 209 mg/dL (70-99) 127 mg/dL (70-99) 206 mg/dL (70-99) Test 05/20/19 10:53 05/20/19 11:23 Glucose (Fingerstick) 286 mg/dL (70-99) White Blood Count 16.5 x10^3/uL (4.0-11.0) Red Blood Count 2.81 x10^6/uL (4.30-5.70) Hemoglobin 8.2 g/dL (13.0-17.5) Hematocrit 24.9 % (39.0-53.0) Mean Corpuscular Volume 89 fL (79-100) Mean Corpuscular Hemoglobin 29 pg (25-35) Mean Corpuscular Hemoglobin Concent 33 g/dL (31-37) Red Cell Distribution Width 17.4 % (11.5-14.5) Platelet Count 324 x10^3/uL (140-400) Sodium Level 139 mmol/L (136-145) Potassium Level 4.0 mmol/L (3.5-5.1) Chloride Level 101 mmol/L (98-107) Carbon Dioxide Level 29 mmol/L (21-32) Anion Gap 9 (6-14) Blood Urea Nitrogen 53 mg/dL (8-26) Creatinine 2.0 mg/dL (0.7-1.3) Estimated GFR (Cockcroft-Gault) 33.2 BUN/Creatinine Ratio 27 (6-20) Glucose Level 295 mg/dL (70-99) Calcium Level 8.0 mg/dL (8.5-10.1) Total Bilirubin 0.5 mg/dL (0.2-1.0) Aspartate Amino Transf (AST/SGOT) 35 U/L (15-37) Alanine Aminotransferase (ALT/SGPT) 40 U/L (16-63) Alkaline Phosphatase 367 U/L (46-116) Total Protein 6.3 g/dL (6.4-8.2) Albumin 1.6 g/dL (3.4-5.0) Albumin/Globulin Ratio 0.3 (1.0-1.7) Laboratory Tests Test 05/19/19 16:50 05/19/19 21:14 05/20/19 07:13 05/20/19 10:53 Glucose (Fingerstick) 209 mg/dL (70-99) 127 mg/dL (70-99) 206 mg/dL (70-99) 286 mg/dL (70-99) Test 05/20/19 11:23 White Blood Count 16.5 x10^3/uL (4.0-11.0) Red Blood Count 2.81 x10^6/uL (4.30-5.70) Hemoglobin 8.2 g/dL (13.0-17.5) Hematocrit 24.9 % (39.0-53.0) Mean Corpuscular Volume 89 fL (79-100) Mean Corpuscular Hemoglobin 29 pg (25-35) Mean Corpuscular Hemoglobin Concent 33 g/dL (31-37) Red Cell Distribution Width 17.4 % (11.5-14.5) Platelet Count 324 x10^3/uL (140-400) Sodium Level 139 mmol/L (136-145) Potassium Level 4.0 mmol/L (3.5-5.1) Chloride Level 101 mmol/L (98-107) Carbon Dioxide Level 29 mmol/L (21-32) Anion Gap 9 (6-14) Blood Urea Nitrogen 53 mg/dL (8-26) Creatinine 2.0 mg/dL (0.7-1.3) Estimated GFR (Cockcroft-Gault) 33.2 BUN/Creatinine Ratio 27 (6-20) Glucose Level 295 mg/dL (70-99) Calcium Level 8.0 mg/dL (8.5-10.1) Total Bilirubin 0.5 mg/dL (0.2-1.0) Aspartate Amino Transf (AST/SGOT) 35 U/L (15-37) Alanine Aminotransferase (ALT/SGPT) 40 U/L (16-63) Alkaline Phosphatase 367 U/L (46-116) Total Protein 6.3 g/dL (6.4-8.2) Albumin 1.6 g/dL (3.4-5.0) Albumin/Globulin Ratio 0.3 (1.0-1.7) Medications Current Medications Sodium Chloride 1,000 ml @ 75 mls/hr [id number] IV Last administered on 05/18/19 21:44; Start 05/17/19 at 12:00; Stop 05/19/19 at 15:49; Status DC Bumetanide (Bumex) 1 mg [id number] PO Last administered on 05/20/19 09:11; Start 05/17/19 at 16:00 Clopidogrel Bisulfate (Plavix) 75 mg DAILY PO Last administered on 05/20/19 09:05; Start 05/18/19 at 09:00 Finasteride (Proscar) 5 mg DAILY PO Last administered on 05/20/19 09:05; Start 05/18/19 at 09:00 Isosorbide Mononitrate (Imdur) 30 mg DAILY PO Last administered on 05/20/19 09:05; Start 05/18/19 at 09:00 Metoprolol Succinate (Toprol Xl) 25 mg DAILY PO Last administered on 05/20/19 09:05; Start 05/18/19 at 09:00 Tamsulosin HCl (Flomax) 0.4 mg BID PO Last administered on 05/20/19 09:04; Start 05/17/19 at 21:00 Atorvastatin Calcium (Lipitor) 80 mg QHS PO Last administered on 05/19/19 21:16; Start 05/17/19 at 21:00 Insulin Human Lispro (HumaLOG) 8 units TIDWMEALS SQ Last administered on 05/20/19 12:31; Start 05/17/19 at 12:30 Insulin Glargine (Lantus Syringe) 20 unit QHS SQ ; Start 05/17/19 at 21:00; Stop 05/17/19 at 12:26; Status DC Metolazone (Zaroxolyn) 5 mg DAILY PO Last administered on 05/20/19 09:04; Start 05/18/19 at 09:00 Potassium Chloride (Klor-Con) 20 meq [id number] PO Last administered on 05/20/19 09:04; Start 05/18/19 at 08:00 Insulin Glargine (Lantus Syringe) 20 unit QHS SQ Last administered on at 21:48; Start 05/17/19 at 21:00 Sodium Hypochlorite (Dakin'S 1/4 Strength) 1 yg DAILY TP Last administered on 05/18/19 12:40; Start 05/17/19 at 13:30 Meropenem 500 mg/ Sodium Chloride 50 ml @ 100 mls/hr Q8HRS IV Last administered on 05/20/19 14:07; Start 05/17/19 at 14:00 Linezolid (Zyvox) 600 mg BID PO Last administered on 05/19/19 08:19; Start 05/17/19 at 14:00; Stop 05/19/19 at 09:36; Status DC Lactobacillus Rhamnosus (Culturelle) 1 cap BID PO Last administered on 05/20/19 09:05; Start 05/18/19 at 21:00 Daptomycin 320 mg/ Sodium Chloride 50 ml @ 100 mls/hr Q24H IV Last administered on 05/20/19 09:12; Start 05/19/19 at 09:45 Lidocaine HCl (Buffered Lidocaine 1%) 3 ml STK-MED ONCE .ROUTE ; Start 05/19/19 at 10:05; Stop 05/19/19 at 10:05; Status DC Multivitamins (Thera M Plus) 1 tab DAILY PO Last administered on 05/20/19 09:05; Start 05/19/19 at 11:00 Lidocaine HCl (Buffered Lidocaine 1%) 3 ml 1X ONCE INJ Last administered on 05/19/19at 11:11; Start 05/19/19 at 11:00; Stop 05/19/19 at 11:01; Status DC Active Scripts Active Reported [e] Metolazone 5 Mg Tablet 5 Mg PO DAILY Clopidogrel (Clopidogrel Bisulfate) 75 Mg Tablet 1 Tab PO DAILY Bumetanide 1 Mg Tablet 1 Tab PO BID Tresiba (Insulin Degludec) 100 Unit/1 Ml Vial 20 Unit SQ HS Novolog (Insulin Aspart) 100 Unit/1 Ml Cartridge 8 Unit SQ TIDWMEALS Potassium Chloride 20 Meq Tablet.er 1 Tab PO DAILY 30 Days Finasteride 5 Mg Tablet 5 Mg PO DAILY Metoprolol Succinate ( Xl ) (Metoprolol Succinate) 25 Mg Tab.er.24h 25 Mg PO DAILY Isosorbide Mononitrate Er (Isosorbide Mononitrate) 30 Mg Tab.er.24h 30 Mg PO DAILY Atorvastatin Calcium 80 Mg Tablet 80 Mg PO DAILY Flomax (Tamsulosin Hcl) 0.4 Mg Cap.er.24h 0.4 Mg PO BID Vitals/I & O Vital Sign - Last 24 Hours 05/19/19 05/19/19 05/19/19 05/20/19 19:00 20:00 23:00 03:00 Temp 98.0 97.6 97.9 98.0 97.6 97.9 Pulse 100 105 101 Resp 18 18 18 B/P (MAP) 126/57 (80) 108/63 (78) 123/67 (85) Pulse Ox 100 92 95 O2 Delivery Room Air Room Air Room Air Room Air 05/20/19 05/20/19 05/20/19 05/20/19 07:00 08:00 09:05 09:05 Temp 98.0 98.0 Pulse 101 101 101 Resp 18 B/P (MAP) 108/65 (79) 108/65 108/65 Pulse Ox 95 O2 Delivery Room Air Room Air 05/20/19 11:00 Temp 97.9 97.9 Pulse 95 Resp 18 B/P (MAP) 110/61 (77) Pulse Ox 95 O2 Delivery Room Air Intake and Output 05/19/19 05/19/19 05/20/19 15:00 23:00 07:00 Intake Total 550 ml 350 ml 0 ml Output Total 450 ml Balance 550 ml 350 ml -450 ml EDGARDO CROW MD May 20, 2019 15:46
[2019-05-20] MEDS ORDERED: INSULIN LISPRO 300 UNITS/3 ML VIAL. SQ ONE (17:30)
[2019-05-20 19:00] VITALS: BP 124/72
[2019-05-20] MEDS: ATORVASTATIN CALCIUM 40 MG TABLET. PO SCH (22:13)
[2019-05-20] MEDS: INSULIN GLARGINE SYRINGE. SQ SCH (22:16)
[2019-05-20 23:00] VITALS: BP 114/68
[2019-05-21] VITALS (15 sets, daily range): BP systolic 104–142; BP diastolic 60–85
[2019-05-21] MEDS: MEROPENEM 500 MG in IV NORMAL SALINE 50ML 50 ML IV SCH ×3 (06:31→21:22)
[2019-05-21] MEDS: INSULIN LISPRO 300 UNITS/3 ML VIAL. SQ SCH ×3 (09:07→17:35)
--- NOTE | 2019-05-21 09:40 | PDOC ---
Infectious Disease Note Subjective Subjective pt is feeling good, no complaints ROS ROS no n/v/d/ Vital Sign Vital Signs Vital Signs Date Time Temp Pulse Resp B/P (MAP) Pulse Ox O2 Delivery O2 Flow Rate FiO2 05/21/19 07:00 97.9 99 14 104/60 (75) 95 Room Air 97.9 Physical Exam PHYSICAL EXAM VITAL SIGNS: Stable, afebrile. HEENT: NAD. NECK: Supple. No JVP, no lymphadenopathy. LUNGS: Clear. HEART: S1, S2 regular. ABDOMEN: Benign. EXTREMITIES: No edema or cyanosis. SKIN: Unremarkable other than right foot has a superficial dorsal wound. Left foot has a second toe necrotic wound and the plantar wound that goes deep into the exposed tendons and bones. Rest of skin examination is unremarkable. NEUROLOGIC: The patient is neurologically alert, awake and appropriate. No focal neurologic deficit. Labs Lab Laboratory Tests Test 05/20/19 10:53 05/20/19 11:23 05/20/19 16:55 05/20/19 20:55 Glucose (Fingerstick) 286 mg/dL (70-99) 346 mg/dL (70-99) 320 mg/dL (70-99) White Blood Count 16.5 x10^3/uL (4.0-11.0) Red Blood Count 2.81 x10^6/uL (4.30-5.70) Hemoglobin 8.2 g/dL (13.0-17.5) Hematocrit 24.9 % (39.0-53.0) Mean Corpuscular Volume 89 fL (79-100) Mean Corpuscular Hemoglobin 29 pg (25-35) Mean Corpuscular Hemoglobin Concent 33 g/dL (31-37) Red Cell Distribution Width 17.4 % (11.5-14.5) Platelet Count 324 x10^3/uL (140-400) Sodium Level 139 mmol/L (136-145) Potassium Level 4.0 mmol/L (3.5-5.1) Chloride Level 101 mmol/L (98-107) Carbon Dioxide Level 29 mmol/L (21-32) Anion Gap 9 (6-14) Blood Urea Nitrogen 53 mg/dL (8-26) Creatinine 2.0 mg/dL (0.7-1.3) Estimated GFR (Cockcroft-Gault) 33.2 BUN/Creatinine Ratio 27 (6-20) Glucose Level 295 mg/dL (70-99) Calcium Level 8.0 mg/dL (8.5-10.1) Total Bilirubin 0.5 mg/dL (0.2-1.0) Aspartate Amino Transf (AST/SGOT) 35 U/L (15-37) Alanine Aminotransferase (ALT/SGPT) 40 U/L (16-63) Alkaline Phosphatase 367 U/L (46-116) Total Protein 6.3 g/dL (6.4-8.2) Albumin 1.6 g/dL (3.4-5.0) Albumin/Globulin Ratio 0.3 (1.0-1.7) Test 05/21/19 08:06 Glucose (Fingerstick) 281 mg/dL (70-99) Objective Assessment 1. Left foot diabetic foot infection, looks really bad vascular insufficiency as well as infection with a deep seated wound all the way to the tendons and bone. 2. Diabetes. 3. Hypertension. 4. Coronary artery disease. Plan Plan of Care pt has now decided to have amputation cont antibiotics til amputation d/w pt and son in detail STORM GIL MD May 21, 2019 09:40
--- NOTE | 2019-05-21 10:09 | PDOC ---
PROGRESS NOTES Chief Complaint Chief Complaint impression bilateral diabetic foot wounds coronary artery disease Congestive heart failure RECENT ECHO Left ventricle systolic function is moderate to severely impaired. The Ejection Fraction is 25-30%. Doppler and Color Flow revealed mild tricuspid regurgitation. The PA pressure was estimated at 27 mmHg. Hypertension Diabetes Urinary retention Diabetic foot infection with a recent surgery done in [place] Subtle erosive change cortical thinning at the medial most margin of the metatarsal shaft portion may be seen with osteomyelitis. PVD SEVERE CKD SEVERE PROTEIN-CALORIC MALNUTRITION Bilateral pleural effusions. Cholelithiasis. Small amount of ascites. No hydronephrosis in the kidneys. CXR 05/21 HX EFFUSION NEPHROLOGY CONSULT CARDIOLOGY CONSULT ECHO TELE BED ABD SONO FREQ LABS IV LASIX 38 MIN PT EXAM, CHART REVIEW, > 50% OF TIME SPENT WITH EXAM, CHART REVIEW, PT CARE COORDINATION History of Present Illness History of Present Illness Mr Denise is a 68 yo M w/ PMHx CAD, HTN, CHF, DM2 who is admitted for foot infection. Apparently, the patient lives in [place] and he is here for a second opinion. The patient recently AGREED WITH recommended amputation, so hence the patient and the family decided to bring him here for a second opinion. L BKA has been recommended by vascular surgery. PICC in place on 05/19/19. Seen by ID and vascular. Patient amenable to L BKA at this point. Still with pain on ambulation. No CP or SOB. 05/21/19 Pt seen and examined by me DW RN Spoke with pt and family regarding care Chart reviewed NEEDS CXR, NEPHROLOGY CONSULT, ECHO, TELE Vitals Vitals Vital Signs Date Time Temp Pulse Resp B/P (MAP) Pulse Ox O2 Delivery O2 Flow Rate FiO2 05/21/19 07:00 97.9 99 14 104/60 (75) 95 Room Air 97.9 Physical Exam Physical Exam VITAL SIGNS: Stable, afebrile. HEENT: NAD. NECK: Supple. No JVP, no lymphadenopathy. LUNGS: Clear. HEART: S1, S2 regular. ABDOMEN: Benign. EXTREMITIES: No edema or cyanosis. SKIN: Unremarkable other than right foot has a superficial dorsal wound. Left foot has a second toe necrotic wound and the plantar wound that goes deep into the exposed tendons and bones. Rest of skin examination is unremarkable. NEUROLOGIC: The patient is neurologically alert, awake and appropriate. No focal neurologic deficit. General: Alert, Oriented X3, No acute distress Heart: Regular rate, Normal S1, Normal S2 Lungs: Crackles Abdomen: Soft, No tenderness Extremities: No edema, Other (extensive tissue loss of the left foot with exposed midfoot bones and tendinous structure, there is surrounding granulation tissue, there is no evidence of purulent drainage, there is no malodor, there is no evidence of deep space abscess, significant portion of the plantar surface of the foot has been excised, there is a superficial wound isolated to the subcutaneous tissue on the dorsal surface of the right foot which is clean and granulating) Skin: Other (same as above) Labs LABS Interstitial pulmonary edema. Indication:EFFUSION TECHNIQUE:Portable AP chest X-ray COMPARISON: 12/07/2018 FINDINGS: Right-sided PICC line is seen with its tip in SVC. Heart is moderately enlarged in size. Diffuse bilateral interstitial opacities are seen with hazy opacities in the bilateral lung bases. No pneumothorax. Visualized bony thorax within normal limits. IMPRESSION: Trace bilateral layering pleural effusions. Interstitial pulmonary edema. Electronically signed by: Prateek Boswell DO (05/21/2019 11:17 AM) [id number] DICTATED and SIGNED BY: PRATEEK BOSWELL DO DATE: 05/21/19 1117 Ultrasound the abdomen complete. HISTORY: Renal failure, anemia Ultrasound was used to evaluate the abdomen. Pancreas was normal in appearance. Vena cava was somewhat distended but otherwise unremarkable. Aorta was normal in size without an aneurysm. Liver was normal in size and appearance without a focal lesion. There is a moderate right pleural effusion. There is a trace of ascites. There is a stone noted in the gallbladder. Gallbladder wall was not thickened. Common duct was normal measuring 3 mm. Right kidney was 11.4 cm in length without hydronephrosis. Pancreas was poorly visualized. Spleen was upper normal in size. There is a moderate to large left pleural effusion. Left kidney is 12.3 cm in length without hydronephrosis. IMPRESSION: 1. Bilateral pleural effusions. 2. Cholelithiasis. 3. Small amount of ascites. 4. No hydronephrosis in the kidneys. 5. Poor visualization of the pancreas. Electronically signed by: Alexey Rider MD (05/21/2019 12:08 PM) [facility] DICTATED and SIGNED BY: ALEXEY RIDER MD DATE: 05/21/19 1202 EXAM: LIMITED Two-dimensional echocardiogram Other Information Quality : Good INDICATION Pulmonary Hypertention LV Function:Systolic 2D DIMENSIONS RVDd 3.0 (2.9-3.5cm) Left Atrium(2D) 3.9 (1.6-4.0cm) IVSd 1.0 (0.7-1.1cm) Aortic Root(2D) 2.8 (2.0-3.7cm) LVDd 5.6 (3.9-5.9cm) PWd 0.9 (0.7-1.1cm) LVDs 4.9 (2.5-4.0cm) FS (%) 13.1 % SV 42.4 ml LVEF(%) 27.7 (>50%) Tricuspid Valve TR P. Velocity 328cm/s TR Peak Gr. 43mmHg LEFT VENTRICLE The left ventricle is normal size. There is normal left ventricular wall thickness. Left ventricle systolic function is moderate to severely impaired. The Ejection Fraction is 25-30%. There is global hypokinesis of the left ventricle. RIGHT VENTRICLE The right ventricle is normal size. The right ventricular systolic function is normal. ATRIA The left atrium size is normal. The right atrium size is normal. The interatrial septum is intact with no evidence for an atrial septal defect or patent foramen ovale as noted on 2-D or Doppler imaging. AORTIC VALVE The aortic valve is calcified but opens well. MITRAL VALVE The mitral valve is calcified but opens well. There is no evidence of mitral valve prolapse. There is no mitral valve stenosis. TRICUSPID VALVE The tricuspid valve is normal in structure and function. Doppler and Color Flow revealed mild tricuspid regurgitation. The PA pressure was estimated at 27 mmHg. There is no tricuspid valve stenosis. PERICARDIAL EFFUSION There is no evidence of significant pericardial effusion. Critical Notification Critical Value: No <Conclusion> Left ventricle systolic function is moderate to severely impaired. The Ejection Fraction is 25-30%. Doppler and Color Flow revealed mild tricuspid regurgitation. The PA pressure was estimated at 27 mmHg. There is no evidence of significant pericardial effusion. Signed by : Gregoria Martinez, Electronically Approved : 12/09/2018 14:21:34 DICTATED and SIGNED BY: GREGORIA MARTINEZ MD DATE: 12/09/18 1421 APPROVED REPORT Technologist: RT Leon (R) Nurse: ORESTES CASE RN Procedure(s) performed: Fluoro time:0.1 min Dose: 0.2Gycm2 RHC with saturation and TD HISTORY The patient is a 67 year-old male with a history of : coronary artery disease. INDICATION The indication(s) include : dyspnea, ischemic cardiomyopathy. PROCEDURE NARRATIVE After appropriate informed consent the patient was brought to the catheterization laboratory. The right neck was prepped and draped in usual s terile fashion. Under 2% lidocaine local anesthesia with ultrasound guidance a 8 Maldivian sheath was placed in the right IJ. A 7.5 Maldivian PA catheter was advanced through the right heart chambers and pressures and saturations were obtained. Once appropriate numbers were obtained the catheter was removed and the sheath was then removed and hemostasis was obtained with manual compression. Findings: RA: 5 mmHg RV 36/7 PA: 35/15/24 PCWP: 12 CO: 3.5 L/min PA sat: 52% Conclusion 1. Normal biventricular filling pressures 2. Normal cardiac output Recommendations Aggressive Medical Therapy Signed by : Zeferino Callahan, Electronically Approved : 12/10/2018 12:23:24 DICTATED and SIGNED BY: ZEFERINO CALLAHAN MD DATE: 12/10/18 1223 REASON: EFFUSION PROCEDURE: CT CHEST WO CONTRAST Examination: CT chest without contrast HISTORY: History of effusion COMPARISON: None available TECHNIQUE: Axial CT images of chest were performed without contrast. Coronal and sagittal reformats are performed. Exposure: One or more of the following individualized dose reduction techniques were utilized for this examination: 1. Automated exposure control 2. Adjustment of the mA and/or kV according to patient size 3. Use of iterative reconstruction technique. FINDINGS: Mild cardiomegaly. Diffuse coronary artery calcifications identified. Examination limited lack of IV contrast. Moderate to large bilateral pleural effusions identified. Left lower lobe lung consolidation changes identified with air bronchograms likely pneumonia or atelectasis. Mild right infrahilar airspace opacity identified. The visualized noncontrasted liver, spleen, adrenals grossly appears unremarkable. Moderate aortic atherosclerosis. Mild degenerative changes thoracic spine. IMPRESSION: 1. Moderate large bilateral pleural effusions. Moderate left lower lobe lung consolidation changes with air bronchograms identified and right infrahilar airspace opacity likely pneumonia or atelectasis. Follow-up to resolution. 2. Diffuse coronary artery calcifications. Electronically signed by: Familia Foreman MD (12/09/2018 2:31 PM) [facility] DICTATED and SIGNED BY: FAMILIA FOREMAN MD DATE: 12/09/18 1431 EXAM: AP and lateral views left foot DATE: 05/17/2019 2:37 PM INDICATION: Left foot wound COMPARISON: No Prior FINDINGS/ IMPRESSION: Amputation changes mid shaft first metatarsal are seen. Subtle erosive change cortical thinning at the medial most margin of the metatarsal shaft portion may be seen with osteomyelitis. However this can be confirmed by MRI if clinically indicated. Extensive soft tissue swelling and defect at the medial aspect of the forefoot, midfoot. Atherosclerotic vascular calcifications are seen. Electronically signed by: Amado Edwards MD (05/18/2019 11:01 AM) [id number] DICTATED and SIGNED BY: AMADO EDWARDS MD Laboratory Tests Test 05/20/19 10:53 05/20/19 11:23 05/20/19 16:55 05/20/19 20:55 Glucose (Fingerstick) 286 mg/dL (70-99) 346 mg/dL (70-99) 320 mg/dL (70-99) White Blood Count 16.5 x10^3/uL (4.0-11.0) Red Blood Count 2.81 x10^6/uL (4.30-5.70) Hemoglobin 8.2 g/dL (13.0-17.5) Hematocrit 24.9 % (39.0-53.0) Mean Corpuscular Volume 89 fL (79-100) Mean Corpuscular Hemoglobin 29 pg (25-35) Mean Corpuscular Hemoglobin Concent 33 g/dL (31-37) Red Cell Distribution Width 17.4 % (11.5-14.5) Platelet Count 324 x10^3/uL (140-400) Sodium Level 139 mmol/L (136-145) Potassium Level 4.0 mmol/L (3.5-5.1) Chloride Level 101 mmol/L (98-107) Carbon Dioxide Level 29 mmol/L (21-32) Anion Gap 9 (6-14) Blood Urea Nitrogen 53 mg/dL (8-26) Creatinine 2.0 mg/dL (0.7-1.3) Estimated GFR (Cockcroft-Gault) 33.2 BUN/Creatinine Ratio 27 (6-20) Glucose Level 295 mg/dL (70-99) Calcium Level 8.0 mg/dL (8.5-10.1) Total Bilirubin 0.5 mg/dL (0.2-1.0) Aspartate Amino Transf (AST/SGOT) 35 U/L (15-37) Alanine Aminotransferase (ALT/SGPT) 40 U/L (16-63) Alkaline Phosphatase 367 U/L (46-116) Total Protein 6.3 g/dL (6.4-8.2) Albumin 1.6 g/dL (3.4-5.0) Albumin/Globulin Ratio 0.3 (1.0-1.7) Test 05/21/19 08:06 Glucose (Fingerstick) 281 mg/dL (70-99) Comment Review of Relevant I have reviewed the following items john (where applicable) has been applied. Labs Laboratory Tests Test 05/19/19 12:18 05/19/19 16:50 05/19/19 21:14 05/20/19 07:13 Glucose (Fingerstick) 133 mg/dL (70-99) 209 mg/dL (70-99) 127 mg/dL (70-99) 206 mg/dL (70-99) Test 05/20/19 10:53 05/20/19 11:23 05/20/19 16:55 05/20/19 20:55 Glucose (Fingerstick) 286 mg/dL (70-99) 346 mg/dL (70-99) 320 mg/dL (70-99) White Blood Count 16.5 x10^3/uL (4.0-11.0) Red Blood Count 2.81 x10^6/uL (4.30-5.70) Hemoglobin 8.2 g/dL (13.0-17.5) Hematocrit 24.9 % (39.0-53.0) Mean Corpuscular Volume 89 fL (79-100) Mean Corpuscular Hemoglobin 29 pg (25-35) Mean Corpuscular Hemoglobin Concent 33 g/dL (31-37) Red Cell Distribution Width 17.4 % (11.5-14.5) Platelet Count 324 x10^3/uL (140-400) Sodium Level 139 mmol/L (136-145) Potassium Level 4.0 mmol/L (3.5-5.1) Chloride Level 101 mmol/L (98-107) Carbon Dioxide Level 29 mmol/L (21-32) Anion Gap 9 (6-14) Blood Urea Nitrogen 53 mg/dL (8-26) Creatinine 2.0 mg/dL (0.7-1.3) Estimated GFR (Cockcroft-Gault) 33.2 BUN/Creatinine Ratio 27 (6-20) Glucose Level 295 mg/dL (70-99) Calcium Level 8.0 mg/dL (8.5-10.1) Total Bilirubin 0.5 mg/dL (0.2-1.0) Aspartate Amino Transf (AST/SGOT) 35 U/L (15-37) Alanine Aminotransferase (ALT/SGPT) 40 U/L (16-63) Alkaline Phosphatase 367 U/L (46-116) Total Protein 6.3 g/dL (6.4-8.2) Albumin 1.6 g/dL (3.4-5.0) Albumin/Globulin Ratio 0.3 (1.0-1.7) Test 05/21/19 08:06 Glucose (Fingerstick) 281 mg/dL (70-99) Laboratory Tests Test 05/20/19 10:53 05/20/19 11:23 05/20/19 16:55 05/20/19 20:55 Glucose (Fingerstick) 286 mg/dL (70-99) 346 mg/dL (70-99) 320 mg/dL (70-99) White Blood Count 16.5 x10^3/uL (4.0-11.0) Red Blood Count 2.81 x10^6/uL (4.30-5.70) Hemoglobin 8.2 g/dL (13.0-17.5) Hematocrit 24.9 % (39.0-53.0) Mean Corpuscular Volume 89 fL (79-100) Mean Corpuscular Hemoglobin 29 pg (25-35) Mean Corpuscular Hemoglobin Concent 33 g/dL (31-37) Red Cell Distribution Width 17.4 % (11.5-14.5) Platelet Count 324 x10^3/uL (140-400) Sodium Level 139 mmol/L (136-145) Potassium Level 4.0 mmol/L (3.5-5.1) Chloride Level 101 mmol/L (98-107) Carbon Dioxide Level 29 mmol/L (21-32) Anion Gap 9 (6-14) Blood Urea Nitrogen 53 mg/dL (8-26) Creatinine 2.0 mg/dL (0.7-1.3) Estimated GFR (Cockcroft-Gault) 33.2 BUN/Creatinine Ratio 27 (6-20) Glucose Level 295 mg/dL (70-99) Calcium Level 8.0 mg/dL (8.5-10.1) Total Bilirubin 0.5 mg/dL (0.2-1.0) Aspartate Amino Transf (AST/SGOT) 35 U/L (15-37) Alanine Aminotransferase (ALT/SGPT) 40 U/L (16-63) Alkaline Phosphatase 367 U/L (46-116) Total Protein 6.3 g/dL (6.4-8.2) Albumin 1.6 g/dL (3.4-5.0) Albumin/Globulin Ratio 0.3 (1.0-1.7) Test 05/21/19 08:06 Glucose (Fingerstick) 281 mg/dL (70-99) Medications Current Medications Sodium Chloride 1,000 ml @ 75 mls/hr [id number] IV Last administered on 05/18/19at 21:44; Start 05/17/19 at 12:00; Stop 05/19/19 at 15:49; Status DC Bumetanide (Bumex) 1 mg [id number] PO Last administered on 05/20/19at 16:24; Start 05/17/19 at 16:00 Clopidogrel Bisulfate (Plavix) 75 mg DAILY PO Last administered on 05/20/19at 09:05; Start 05/18/19 at 09:00 Finasteride (Proscar) 5 mg DAILY PO Last administered on 05/20/19at 09:05; Start 05/18/19 at 09:00 Isosorbide Mononitrate (Imdur) 30 mg DAILY PO Last administered on 05/20/19at 09:05; Start 05/18/19 at 09:00 Metoprolol Succinate (Toprol Xl) 25 mg DAILY PO Last administered on 05/20/19at 09:05; Start 05/18/19 at 09:00 Tamsulosin HCl (Flomax) 0.4 mg BID PO Last administered on 05/20/19 22:13; Start 05/17/19 at 21:00 Atorvastatin Calcium (Lipitor) 80 mg QHS PO Last administered on 05/20/19 22:13; Start 05/17/19 at 21:00 Insulin Human Lispro (HumaLOG) 8 units TIDWMEALS SQ Last administered on 05/21/19 09:07; Start 05/17/19 at 12:30 Insulin Glargine (Lantus Syringe) 20 unit QHS SQ ; Start 05/17/19 at 21:00; Stop 05/17/19 at 12:26; Status DC Metolazone (Zaroxolyn) 5 mg DAILY PO Last administered on 05/20/19 09:04; Start 05/18/19 at 09:00 Potassium Chloride (Klor-Con) 20 meq DAILYWBKFT PO Last administered on 05/20/19 09:04; Start 05/18/19 at 08:00 Insulin Glargine (Lantus Syringe) 20 unit QHS SQ Last administered on 05/20/19 22:16; Start 05/17/19 at 21:00 Sodium Hypochlorite (Dakin'S 1/4 Strength) 1 yg DAILY TP Last administered on 05/18/19at 12:40; Start 05/17/19 at 13:30 Meropenem 500 mg/ Sodium Chloride 50 ml @ 100 mls/hr Q8HRS IV Last administered on 05/21/19 06:31; Start 05/17/19 at 14:00 Linezolid (Zyvox) 600 mg BID PO Last administered on 05/19/19 08:19; Start 05/17/19 at 14:00; Stop 05/19/19 at 09:36; Status DC Lactobacillus Rhamnosus (Culturelle) 1 cap BID PO Last administered on 05/20/19 22:13; Start 05/18/19 at 21:00 Daptomycin 320 mg/ Sodium Chloride 50 ml @ 100 mls/hr Q24H IV Last administered on 05/20/19 09:12; Start 05/19/19 at 09:45 Lidocaine HCl (Buffered Lidocaine 1%) 3 ml STK-MED ONCE .ROUTE ; Start 05/19/19 at 10:05; Stop 05/19/19 at 10:05; Status DC Multivitamins (Thera M Plus) 1 tab DAILY PO Last administered on 05/20/19at 09:05; Start 05/19/19 at 11:00 Lidocaine HCl (Buffered Lidocaine 1%) 3 ml 1X ONCE INJ Last administered on 05/19/19at 11:11; Start 05/19/19 at 11:00; Stop 05/19/19 at 11:01; Status DC Insulin Human Lispro (HumaLOG) 2 units 1X ONCE SQ Last administered on 05/20/19at 17:50; Start 05/20/19 at 17:30; Stop 05/20/19 at 17:31; Status DC Active Scripts Active Reported [e] Metolazone 5 Mg Tablet 5 Mg PO DAILY Clopidogrel (Clopidogrel Bisulfate) 75 Mg Tablet 1 Tab PO DAILY Bumetanide 1 Mg Tablet 1 Tab PO BID Tresiba (Insulin Degludec) 100 Unit/1 Ml Vial 20 Unit SQ HS Novolog (Insulin Aspart) 100 Unit/1 Ml Cartridge 8 Unit SQ TIDWMEALS Potassium Chloride 20 Meq Tablet.er 1 Tab PO DAILY 30 Days Finasteride 5 Mg Tablet 5 Mg PO DAILY Metoprolol Succinate ( Xl ) (Metoprolol Succinate) 25 Mg Tab.er.24h 25 Mg PO DAILY Isosorbide Mononitrate Er (Isosorbide Mononitrate) 30 Mg Tab.er.24h 30 Mg PO DAILY Atorvastatin Calcium 80 Mg Tablet 80 Mg PO DAILY Flomax (Tamsulosin Hcl) 0.4 Mg Cap.er.24h 0.4 Mg PO BID Vitals/I & O Vital Sign - Last 24 Hours 05/20/19 05/20/19 05/20/19 05/20/19 11:00 15:00 19:00 19:30 Temp 97.9 97.7 98.3 97.9 97.7 98.3 Pulse 95 99 97 Resp 18 18 20 B/P (MAP) 110/61 (77) 132/75 (94) 124/72 (89) Pulse Ox 95 97 94 O2 Delivery Room Air Room Air Room Air Room Air 05/20/19 05/21/19 05/21/19 23:00 03:00 07:00 Temp 98.2 97.9 97.9 98.2 97.9 97.9 Pulse 104 103 99 Resp 20 20 14 B/P (MAP) 114/68 (83) 109/60 (76) 104/60 (75) Pulse Ox 93 90 95 O2 Delivery Room Air Room Air Room Air Intake and Output 05/20/19 05/20/19 05/21/19 15:00 23:00 07:00 Intake Total 450 ml 300 ml Output Total 300 ml 400 ml 625 ml Balance 150 ml -100 ml -625 ml ISAURO WORLEY MD May 21, 2019 10:09
--- NOTE | 2019-05-21 11:07 | NUR ---
Spoke with Dr. Gastelum re: amputation. He stated he is aware the pt and family have chosen to move fwd w/ amputation, states he is on the surgery schedule for next week but is unsure of date/time as their ofc is closed for the holiday. Will continue to monitor pt.
--- NOTE | 2019-05-21 11:20 | RAD ---
Indication:EFFUSION TECHNIQUE:Portable AP chest X-ray COMPARISON: 12/07/2018 FINDINGS: Right-sided PICC line is seen with its tip in SVC. Heart is moderately enlarged in size. Diffuse bilateral interstitial opacities are seen with hazy opacities in the bilateral lung bases. No pneumothorax. Visualized bony thorax within normal limits. IMPRESSION: Trace bilateral layering pleural effusions. Interstitial pulmonary edema. Electronically signed by: Prateek Boswell DO (05/21/2019 11:17 AM) [facility]
[2019-05-21] MEDS: FINASTERIDE 5 MG TABLET. PO SCH (12:06)
[2019-05-21] MEDS: LACTOBACILLUS RHAMNOSUS GG 1 CAPSULE. PO SCH ×2 (12:06→21:21)
[2019-05-21] MEDS: metOLazone 2.5 MG TABLET PO SCH (12:06)
[2019-05-21] MEDS: TAMSULOSIN 0.4 MG CAP.ER.24H. PO SCH ×2 (12:06→21:21)
[2019-05-21] MEDS: ISOSORBIDE MONONITRATE ER 30 MG TAB.ER.24H PO SCH (12:07)
[2019-05-21] MEDS: POTASSIUM CHLORIDE 20 MEQ TABLET.ER. PO SCH (12:07)
[2019-05-21] MEDS: CLOPIDOGREL BISULFATE 75 MG TABLET PO SCH (12:07)
[2019-05-21] MEDS: METOPROLOL SUCC 24HR ER 25 MG TAB.ER.24H. PO SCH (12:07)
[2019-05-21] MEDS: MULTIVITAMIN with MINERAL TABLET. PO SCH (12:07)
[2019-05-21] MEDS: BUMETANIDE 1 MG TABLET. PO SCH (12:07)
[2019-05-21] MEDS: DAPTOmycin (GENERIC) IVPB 320 MG in IV NORMAL SALINE 50ML 50 ML IV SCH (12:08)
--- NOTE | 2019-05-21 12:10 | RAD ---
Ultrasound the abdomen complete. HISTORY: Renal failure, anemia Ultrasound was used to evaluate the abdomen. Pancreas was normal in appearance. Vena cava was somewhat distended but otherwise unremarkable. Aorta was normal in size without an aneurysm. Liver was normal in size and appearance without a focal lesion. There is a moderate right pleural effusion. There is a trace of ascites. There is a stone noted in the gallbladder. Gallbladder wall was not thickened. Common duct was normal measuring 3 mm. Right kidney was 11.4 cm in length without hydronephrosis. Pancreas was poorly visualized. Spleen was upper normal in size. There is a moderate to large left pleural effusion. Left kidney is 12.3 cm in length without hydronephrosis. IMPRESSION: 1. Bilateral pleural effusions. 2. Cholelithiasis. 3. Small amount of ascites. 4. No hydronephrosis in the kidneys. 5. Poor visualization of the pancreas. Electronically signed by: Alexey Rider MD (05/21/2019 12:08 PM) [facility]
--- NOTE | 2019-05-21 12:16 | PDOC2 ---
CARDIOLOGY CONSULT NOTE CHEIF COMPLAINT: Preoperative evaluation for left below-knee amputation HPI: 68-year-old male with known history of ischemic cardio myopathy who is well- known to our service presented to the hospital in the setting of a foot wound which was at its end stage. He is planned for operative intervention with a amputation which is his last resort. He is currently on antibiotic therapy. He was previously seen by our service and underwent complex PCI after being considered high risk for coronary artery bypass surgery. Subsequent only he apparently went to [place] and possibly also had some sort of lower 70 arterial intervention which was unsuccessful in that he presented to our hospital for further evaluation and treatment. The patient does not have any specific cardiac limitations at this time but unfortunately he has been unable to walk due to his foot wound. Denies any active chest pain. No syncope or palpitations. PMHX: 1. Ischemic cardio myopathy status post multivessel PCI in 2018 with stents to the RCA, OM1, LAD 2. Hypertension 3. Dyslipidemia 4. Peripheral arterial disease s/p L pop angioplasty in 12/2017 5. Type 2 diabetes SOCHX: No alcohol, tob or illicit drug use. He is a with good family support FAMHX: NC CURRENT MEDS: Metolazone 5mg daily, Toprol XL, Bumex 1mg bid, Atorvastatin, asa and plavix. ALLERGIES: Allergies Coded Allergies Type Severity Reaction Last Updated Verified I S O L A T I O N *CONTACT* Allergy Unknown 12/14/18 Yes No Known Medication Allergies Allergy Unknown 12/14/18 Yes ROS: Negative unless otherwise noted above in HPI PHYSICAL EXAM: Vital Signs/I&O: Vital Signs Date Time Temp Pulse Resp B/P (MAP) Pulse Ox O2 Delivery O2 Flow Rate FiO2 05/21/19 11:00 97.6 96 14 121/68 (85) 94 Room Air 97.6 I & O 05/20/19 05/20/19 05/21/19 15:00 23:00 07:00 Intake Total 450 ml 300 ml Output Total 300 ml 400 ml 625 ml Balance 150 ml -100 ml -625 ml Physical Exam: GEN.: No apparent distress. Alert and oriented. HEENT: Head is normocephalic, atraumatic NECK: Supple. LUNGS: Bibasilar rales HEART: RRR, S1, S2 present. diminished popliteal pulses. +TR ABDOMEN: Soft, nontender. Positive bowel sounds. EXTREMITIES: Left foot in wraps. 3+ bilateral lower ext edema NEUROLOGIC: Normal speech, normal tone PSYCHIATRIC: Normal affect, normal mood. DIAGNOSTIC TESTING: labs reviewed: Echo with known severe LV dysfunction of 25%. Cr 2.0 , up from 1.7 WBC 16.5 Plt wnl Hgb 8.2 ASSESSMENT: 1. Severe LLE foot infection - likely PAD and DM2 2. Ischemic CMP 3. CKD - baseline cr 2.0 4. PAd 5. DM2 PLAN: 1. He appears to be significantly volume overloaded, likely due to right sided heart failure and low oncotic pressure/infection 2. Will plan for initiation of milrinone therapy, decrease filling pressures with IV lasix and monitor with strict I/O's. 3. Stop oral bumex and metolazone. Monitor electrolytes closely. 4. Check venous blood gas. ZEFERINO PISANO MD May 21, 2019 12:16
--- NOTE | 2019-05-21 14:46 | PDOC2 ---
CONSULT Date of Consult Date of Consult DATE: 05/21/19 TIME: 14:37 Reason for Consult Reason for Consult: Renal failure Referring Physician Referring Physician: Berna Identification/Chief Complaint Chief Complaint Diabetic foot ulcers/wounds Source Source: Caregiver, Chart review, Patient History of Present Illness Reason for Visit: Patient is a pleasant 68-year-old gentleman who appears to [place]. He is known to have diabetic foot ulcers that appear to have been addressed in [place] and when [place] he was found to have worsening of the same. He is now admitted to the hospital for evaluation by vascular surgery and wound care. In talking to the family that are not aware of known diagnosis of renal insufficiency. He is been a diabetic for 20 years and is known to have diabetic retinopathy recently required laser surgery for diabetic retinopathy. He appears to have ran a creatinine of 2.3 in November 2018 during his hospitalization here. He denies any difficulty urinating. Family denies history of NSAID use. Past Medical History Cardiovascular: CAD, CHF, HTN, Hyperlipidemia, Other Pulmonary: No pertinent hx CENTRAL NERVOUS SYSTEM: TIA Heme/Onc: Anemia NOS Musculoskeletal: Osteoarthritis Rheumatologic: No pertinent hx Infectious disease: No pertinent hx Renal/: Chronic renal insuff, UTI, Benign prostatic enlarg., Other Endocrine: Diabetes Past Surgical History Past Surgical History: Other Family History Family History: Diabetes, High Cholestrol, Hypertension Social History ALCOHOL: none Drugs: None Lives: with Family Current Medications Current Medications Current Medications Sodium Chloride 1,000 ml @ 75 mls/hr [id number] IV Last administered on 05/18/19at 21:44; Start 05/17/19 at 12:00; Stop 05/19/19 at 15:49; Status DC Bumetanide (Bumex) 1 mg BID94 PO Last administered on 05/21/19at 12:07; Start 05/17/19 at 16:00; Stop 05/21/19 at 12:44; Status DC Clopidogrel Bisulfate (Plavix) 75 mg DAILY PO Last administered on 05/21/19at 12:07; Start 05/18/19 at 09:00 Finasteride (Proscar) 5 mg DAILY PO Last administered on 05/21/19at 12:06; Start 05/18/19 at 09:00 Isosorbide Mononitrate (Imdur) 30 mg DAILY PO Last administered on 05/21/19 12:07; Start 05/18/19 at 09:00; Stop 05/21/19 at 12:44; Status DC Metoprolol Succinate (Toprol Xl) 25 mg DAILY PO Last administered on 05/21/19at 12:07; Start 05/18/19 at 09:00 Tamsulosin HCl (Flomax) 0.4 mg BID PO Last administered on 05/21/19 12:06; Start 05/17/19 at 21:00 Atorvastatin Calcium (Lipitor) 80 mg QHS PO Last administered on 05/20/19at 22:13; Start 05/17/19 at 21:00 Insulin Human Lispro (HumaLOG) 8 units TIDWMEALS SQ Last administered on 05/21/19at 12:16; Start 05/17/19 at 12:30 Insulin Glargine (Lantus Syringe) 20 unit QHS SQ ; Start 05/17/19 at 21:00; Stop 05/17/19 at 12:26; Status DC Metolazone (Zaroxolyn) 5 mg DAILY PO Last administered on 05/21/19at 12:06; Start 05/18/19 at 09:00; Stop 05/21/19 at 12:44; Status DC Potassium Chloride (Klor-Con) 20 meq DAILYWBKFT PO Last administered on 05/21/19at 12:07; Start 05/18/19 at 08:00 Insulin Glargine (Lantus Syringe) 20 unit QHS SQ Last administered on 05/20/19at 22:16; Start 05/17/19 at 21:00 Sodium Hypochlorite (Dakin'S 1/4 Strength) 1 yg DAILY TP Last administered on 05/18/19at 12:40; Start 05/17/19 at 13:30; Stop 05/21/19 at 12:37; Status DC Meropenem 500 mg/ Sodium Chloride 50 ml @ 100 mls/hr Q8HRS IV Last administer ed on 05/21/19at 06:31; Start 05/17/19 at 14:00 Linezolid (Zyvox) 600 mg BID PO Last administered on 05/19/19at 08:19; Start 05/17/19 at 14:00; Stop 05/19/19 at 09:36; Status DC Lactobacillus Rhamnosus (Culturelle) 1 cap BID PO Last administered on 07/21/18at 12:06; Start 05/18/19 at 21:00 Daptomycin 320 mg/ Sodium Chloride 50 ml @ 100 mls/hr Q24H IV Last administered on 05/21/19at 12:08; Start 05/19/19 at 09:45 Lidocaine HCl (Buffered Lidocaine 1%) 3 ml STK-MED ONCE .ROUTE ; Start 05/19/19 at 10:05; Stop 05/19/19 at 10:05; Status DC Multivitamins (Thera M Plus) 1 tab DAILY PO Last administered on 05/21/19at 12:07; Start 05/19/19 at 11:00 Lidocaine HCl (Buffered Lidocaine 1%) 3 ml 1X ONCE INJ Last administered on 05/19/19at 11:11; Start 05/19/19 at 11:00; Stop 05/19/19 at 11:01; Status DC Insulin Human Lispro (HumaLOG) 2 units 1X ONCE SQ Last administered on at 17:50; Start 05/20/19 at 17:30; Stop 05/20/19 at 17:31; Status DC Aspirin (Ecotrin) 81 mg DAILYWBKFT PO ; Start 05/21/19 at 12:45 Milrinone Lactate/ Dextrose 100 ml @ 2.977 mls/ hr CONT PRN IV SEE I/O RECORD; Start 05/21/19 at 12:45 Furosemide (Lasix) 40 mg BID92 IVP ; Start 05/21/19 at 14:00 Active Scripts Active Reported [e] Metolazone 5 Mg Tablet 5 Mg PO DAILY Clopidogrel (Clopidogrel Bisulfate) 75 Mg Tablet 1 Tab PO DAILY Bumetanide 1 Mg Tablet 1 Tab PO BID Tresiba (Insulin Degludec) 100 Unit/1 Ml Vial 20 Unit SQ HS Novolog (Insulin Aspart) 100 Unit/1 Ml Cartridge 8 Unit SQ TIDWMEALS Potassium Chloride 20 Meq Tablet.er 1 Tab PO DAILY 30 Days Finasteride 5 Mg Tablet 5 Mg PO DAILY Metoprolol Succinate ( Xl ) (Metoprolol Succinate) 25 Mg Tab.er.24h 25 Mg PO DAILY Isosorbide Mononitrate Er (Isosorbide Mononitrate) 30 Mg Tab.er.24h 30 Mg PO DAILY Atorvastatin Calcium 80 Mg Tablet 80 Mg PO DAILY Flomax (Tamsulosin Hcl) 0.4 Mg Cap.er.24h 0.4 Mg PO BID Allergies Allergies: Coded Allergies: I S O L A T I O N *CONTACT* (Verified Allergy, Unknown, 12/14/18) ESBL No Known Medication Allergies (Verified Allergy, Unknown, 12/14/18) ROS Review of System Negative other than foot wounds Physical Exam Physical Exam General Appearance: Awake Alert Oriented x 3 In no Distress, is actually getting a shave Eyes: VIsion Unchanged Conjunctiva Normal EN: No EN Drainage Mucous Memb. moist Neck: no JVD min JVP Supple no Thyromegaly CVS: S1 S2 soft Murmur No Gallop No Rub no Edema Resp: no Rales no Rhonchi no Acc. Muscle use GI: BAS +ve NO Bruit Non Tender Non Distended : no CVA tenderness; no Suprapubic Tenderness SKIN: no Rashes Breast Exam deferred, foot wounds as described elsewhere Mu.Sk: Adequate ROM min Muscle Atrophy Heme: Unable to palpate Obvious LAD no Splenomegaly NEURO: Good Strength and Tone Cranial Nerves II - XII grossly intact Psych: not Depressed no Active hallucination Vital Signs Vital Signs Date Time Temp Pulse Resp B/P (MAP) Pulse Ox O2 Delivery O2 Flow Rate FiO2 05/21/19 12:07 96 121/68 05/21/19 11:00 97.6 14 94 Room Air 97.6 Assessment & Plan Chronic kidney disease stage III/ IV: 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 Severe hypoalbuminemia: We'll check UA for proteinuria. Wounds may be contri buting to the same also. Anemia: In the setting of renal failure: Check iron HTN: Current BP meds reviewed. See orders for changes. Diabetes: Will benefit from tighter blood sugar control. I will be deferred to primary team Renal ultrasound is noted to have bilateral pleural effusions and hence fluids will be decreased / discontinued Discussed Plan of Care and prognosis etc. at length with family. Labs Labs Laboratory Tests Test 05/19/19 16:50 05/19/19 21:14 05/20/19 07:13 05/20/19 10:53 Glucose (Fingerstick) 209 mg/dL (70-99) 127 mg/dL (70-99) 206 mg/dL (70-99) 286 mg/dL (70-99) Test 05/20/19 11:23 05/20/19 16:55 05/20/19 20:55 05/21/19 08:06 White Blood Count 16.5 x10^3/uL (4.0-11.0) Red Blood Count 2.81 x10^6/uL (4.30-5.70) Hemoglobin 8.2 g/dL (13.0-17.5) Hematocrit 24.9 % (39.0-53.0) Mean Corpuscular Volume 89 fL (79-100) Mean Corpuscular Hemoglobin 29 pg (25-35) Mean Corpuscular Hemoglobin Concent 33 g/dL (31-37) Red Cell Distribution Width 17.4 % (11.5-14.5) Platelet Count 324 x10^3/uL (140-400) Sodium Level 139 mmol/L (136-145) Potassium Level 4.0 mmol/L (3.5-5.1) Chloride Level 101 mmol/L (98-107) Carbon Dioxide Level 29 mmol/L (21-32) Anion Gap 9 (6-14) Blood Urea Nitrogen 53 mg/dL (8-26) Creatinine 2.0 mg/dL (0.7-1.3) Estimated GFR (Cockcroft-Gault) 33.2 BUN/Creatinine Ratio 27 (6-20) Glucose Level 295 mg/dL (70-99) Calcium Level 8.0 mg/dL (8.5-10.1) Total Bilirubin 0.5 mg/dL (0.2-1.0) Aspartate Amino Transf (AST/SGOT) 35 U/L (15-37) Alanine Aminotransferase (ALT/SGPT) 40 U/L (16-63) Alkaline Phosphatase 367 U/L (46-116) Total Protein 6.3 g/dL (6.4-8.2) Albumin 1.6 g/dL (3.4-5.0) Albumin/Globulin Ratio 0.3 (1.0-1.7) Glucose (Fingerstick) 346 mg/dL (70-99) 320 mg/dL (70-99) 281 mg/dL (70-99) Test 05/21/19 11:16 Glucose (Fingerstick) 207 mg/dL (70-99) Laboratory Tests Test 05/20/19 16:55 05/20/19 20:55 05/21/19 08:06 05/21/19 11:16 Glucose (Fingerstick) 346 mg/dL (70-99) 320 mg/dL (70-99) 281 mg/dL (70-99) 207 mg/dL (70-99) Review All relevant outside records, renal labs, imaging studies, telemetry/EKG's were reviewed. Images Images IMPRESSION: 1. Bilateral pleural effusions. 2. Cholelithiasis. 3. Small amount of ascites. 4. No hydronephrosis in the kidneys. 5. Poor visualization of the pancreas. REDD GLI MD May 21, 2019 14:46
[2019-05-21] MEDS: FUROSEMIDE 40 MG/4 ML VIAL. IVP SCH (15:52)
[2019-05-21] MEDS: ASPIRIN ENTERIC COATED 81 MG TABLET.DR. PO SCH (15:52)
[2019-05-21] MEDS: MILRINONE 20MG/100ML PREMIX 100 ML IV PRN (15:57)
[2019-05-21 17:16] LABS: ISTAT BE VENOUS 7 mmol/L (0-3); ISTAT HCO3 VEN 30 mmol/L (24-28); ISTAT PCO2 VEN 42 mmHg (41-51); ISTAT PH VEN 7.46 (7.32-7.42); ISTAT PO2 VEN 46 mmHg (20-40); ISTAT SAT O2 VEN 84 %; ISTAT TCO2 VEN 32 mmol/L (21-32)
[2019-05-21] MEDS: ATORVASTATIN CALCIUM 40 MG TABLET. PO SCH (21:22)
[2019-05-21] MEDS: INSULIN GLARGINE SYRINGE. SQ SCH (21:46)
[2019-05-22] VITALS (11 sets, daily range): BP systolic 109–149; BP diastolic 57–91
[2019-05-22] MEDS: MEROPENEM 500 MG in IV NORMAL SALINE 50ML 50 ML IV SCH ×3 (05:40→21:18)
[2019-05-22 05:51] LABS: CREATININE,RANDOM URINE 48.2 mg/dL (Not Establ.)
[2019-05-22 06:00] LABS: BASO % 0 % (0-3); EOS # 0.1 x10^3/uL (0.0-0.7); EOS % 1 % (0-3); HEMATOCRIT 21.4 % (39.0-53.0); LYMPH # 0.7 x10^3/uL (1.0-4.8); LYMPH % 6 % (24-48); MEAN CORPUSCULAR HEMOGLOBIN 28 pg (25-35); MEAN CORPUSCULAR HGB CONC 32 g/dL (31-37); MEAN CORPUSCULAR VOLUME 88 fL (79-100); MONO # 0.8 x10^3/uL (0.0-1.1); MONO % 7 % (0-9); NEUT # 9.9 x10^3/uL (1.8-7.7); NEUT % 86 % (31-73); PLATELET COUNT 280 x10^3/uL (140-400); RED BLOOD COUNT 2.44 x10^6/uL (4.30-5.70); RED CELL DISTRIBUTION WIDTH 17.1 % (11.5-14.5); WHITE BLOOD COUNT 11.5 x10^3/uL (4.0-11.0)
[2019-05-22 06:11] LABS: ALBUMIN 1.4 g/dL (3.4-5.0); ALBUMIN/GLOBULIN RATIO 0.3 (1.0-1.7); CALCIUM 7.7 mg/dL (8.5-10.1); GFR 33.2; POTASSIUM 3.6 mmol/L (3.5-5.1); TOTAL BILIRUBIN 0.4 mg/dL (0.2-1.0); TOTAL PROTEIN 5.6 g/dL (6.4-8.2)
[2019-05-22 06:17] LABS: HEMOGLOBIN 6.9 g/dL (13.0-17.5)
[2019-05-22] MEDS ORDERED: ACETAMINOPHEN 325 MG TABLET. PO PRN (06:30)
[2019-05-22] MEDS ORDERED: diphenhydrAMINE HCL 25 MG CAPSULE PO PRN (06:30)
[2019-05-22] MEDS: POTASSIUM CHLORIDE 20 MEQ TABLET.ER. PO SCH (08:19)
[2019-05-22] MEDS: ASPIRIN ENTERIC COATED 81 MG TABLET.DR. PO SCH (08:19)
[2019-05-22] MEDS: LACTOBACILLUS RHAMNOSUS GG 1 CAPSULE. PO SCH ×2 (08:19→21:17)
[2019-05-22] MEDS: FINASTERIDE 5 MG TABLET. PO SCH (08:19)
[2019-05-22] MEDS: TAMSULOSIN 0.4 MG CAP.ER.24H. PO SCH ×2 (08:19→21:17)
[2019-05-22] MEDS: METOPROLOL SUCC 24HR ER 25 MG TAB.ER.24H. PO SCH (08:20)
[2019-05-22] MEDS: MULTIVITAMIN with MINERAL TABLET. PO SCH (08:20)
[2019-05-22] MEDS: INSULIN LISPRO 300 UNITS/3 ML VIAL. SQ SCH ×3 (08:30→18:05)
[2019-05-22] MEDS: FUROSEMIDE 40 MG/4 ML VIAL. IVP SCH ×2 (08:32→13:56)
--- NOTE | 2019-05-22 08:44 | PDOC ---
PROGRESS NOTES Chief Complaint Chief Complaint impression bilateral diabetic foot wounds coronary artery disease Congestive heart failure RECENT ECHO Left ventricle systolic function is moderate to severely impaired. The Ejection Fraction is 25-30%. Doppler and Color Flow revealed mild tricuspid regurgitation. The PA pressure was estimated at 27 mmHg. Hypertension Diabetes Urinary retention Diabetic foot infection with a recent surgery done in [place] Subtle erosive change cortical thinning at the medial most margin of the metatarsal shaft portion may be seen with osteomyelitis. PVD SEVERE CKD SEVERE PROTEIN-CALORIC MALNUTRITION Bilateral pleural effusions. Cholelithiasis. Small amount of ascites. No hydronephrosis in the kidneys. CXR 05/21 HX EFFUSION NEPHROLOGY CONSULT CARDIOLOGY CONSULT ECHO TELE BED ABD SONO FREQ LABS IV LASIX 38 MIN PT EXAM, CHART REVIEW, > 50% OF TIME SPENT WITH EXAM, CHART REVIEW, PT CARE COORDINATION History of Present Illness History of Present Illness Mr Denise is a 68 yo M w/ PMHx CAD, HTN, CHF, DM2 who is admitted for foot infection. Apparently, the patient lives in [place] and he is here for a second opinion. The patient recently AGREED WITH recommended amputation, so hence the patient and the family decided to bring him here for a second opinion. L BKA has been recommended by vascular surgery. PICC in place on 05/19/19. Seen by Cardiology, ID and vascular. 05/21/19: NEEDS CXR, NEPHROLOGY CONSULT, ECHO, TELE Transferred to [facility] on milrinone GTT for worsening CHF. Hb dropped today. He consents to blood transfusion. Patient amenable to L BKA at this point. Still with pain on ambulation. No CP or SOB. Vitals Vitals Vital Signs Date Time Temp Pulse Resp B/P (MAP) Pulse Ox O2 Delivery O2 Flow Rate FiO2 05/22/19 08:20 96 133/76 05/22/19 07:40 Nasal Cannula 1.0 05/22/19 02:49 97.8 16 94 97.8 Physical Exam Physical Exam VITAL SIGNS: Stable, afebrile. HEENT: NAD. NECK: Supple. No JVP, no lymphadenopathy. LUNGS: Clear. HEART: S1, S2 regular. ABDOMEN: Benign. EXTREMITIES: No edema or cyanosis. SKIN: Unremarkable other than right foot has a superficial dorsal wound. Left foot has a second toe necrotic wound and the plantar wound that goes deep into the exposed tendons and bones. Rest of skin examination is unremarkable. NEUROLOGIC: The patient is neurologically alert, awake and appropriate. No focal neurologic deficit. General: Alert, Oriented X3, No acute distress Heart: Regular rate, Normal S1, Normal S2 Lungs: Crackles Abdomen: Soft, No tenderness Extremities: No edema, Other (extensive tissue loss of the left foot with exposed midfoot bones and tendinous structure, there is surrounding granulation tissue, there is no evidence of purulent drainage, there is no malodor, there is no evidence of deep space abscess, significant portion of the plantar surface of the foot has been excised, there is a superficial wound isolated to the subcutaneous tissue on the dorsal surface of the right foot which is clean and granulating) Skin: Other (same as above) Labs LABS Laboratory Tests Test 05/21/19 11:16 05/21/19 14:25 05/21/19 14:55 05/21/19 16:35 Glucose (Fingerstick) 207 mg/dL (70-99) Iron Level 12 ug/dL (65-175) Total Iron Binding Capacity 118 ug/dL (250-450) Iron Saturation 10 % (15-34) Ferritin 379 ng/mL (26-388) AI-Gml-R-Type Natriuretic Peptide > 00160 pg/mL (0-124) Urine Random Creatinine 48.2 mg/dL (Not Establ.) Urine Random Total Protein 67.7 mg/dL (Not Establ.) Urine Protein/Creatinine Ratio 1405 mg/g (0-200) Test 05/21/19 17:13 05/21/19 20:35 05/22/19 05:00 05/22/19 08:17 Bedside Venous pH 7.46 (7.32-7.42) Bedside Venous pCO2 42 mmHg (41-51) Bedside Venous pO2 46 mmHg (20-40) Venous Blood HCO3 30 mmol/L (24-28) POC Venous O2 Saturation (Stephan) 84 % Bedside FiO2 21.0 Glucose (Fingerstick) 231 mg/dL (70-99) 182 mg/dL (70-99) 162 mg/dL (70-99) White Blood Count 11.5 x10^3/uL (4.0-11.0) Red Blood Count 2.44 x10^6/uL (4.30-5.70) Hemoglobin 6.9 g/dL (13.0-17.5) Hematocrit 21.4 % (39.0-53.0) Mean Corpuscular Volume 88 fL (79-100) Mean Corpuscular Hemoglobin 28 pg (25-35) Mean Corpuscular Hemoglobin Concent 32 g/dL (31-37) Red Cell Distribution Width 17.1 % (11.5-14.5) Platelet Count 280 x10^3/uL (140-400) Neutrophils (%) (Auto) 86 % (31-73) Lymphocytes (%) (Auto) 6 % (24-48) Monocytes (%) (Auto) 7 % (0-9) Eosinophils (%) (Auto) 1 % (0-3) Basophils (%) (Auto) 0 % (0-3) Neutrophils # (Auto) 9.9 x10^3/uL (1.8-7.7) Lymphocytes # (Auto) 0.7 x10^3/uL (1.0-4.8) Monocytes # (Auto) 0.8 x10^3/uL (0.0-1.1) Eosinophils # (Auto) 0.1 x10^3/uL (0.0-0.7) Basophils # (Auto) 0.0 x10^3/uL (0.0-0.2) Sodium Level 142 mmol/L (136-145) Potassium Level 3.6 mmol/L (3.5-5.1) Chloride Level 104 mmol/L (98-107) Carbon Dioxide Level 32 mmol/L (21-32) Anion Gap 6 (6-14) Blood Urea Nitrogen 56 mg/dL (8-26) Creatinine 2.0 mg/dL (0.7-1.3) Estimated GFR (Cockcroft-Gault) 33.2 BUN/Creatinine Ratio 28 (6-20) Glucose Level 171 mg/dL (70-99) Calcium Level 7.7 mg/dL (8.5-10.1) Total Bilirubin 0.4 mg/dL (0.2-1.0) Aspartate Amino Transf (AST/SGOT) 64 U/L (15-37) Alanine Aminotransferase (ALT/SGPT) 54 U/L (16-63) Alkaline Phosphatase 300 U/L (46-116) Total Protein 5.6 g/dL (6.4-8.2) Albumin 1.4 g/dL (3.4-5.0) Albumin/Globulin Ratio 0.3 (1.0-1.7) Comment Review of Relevant I have reviewed the following items john (where applicable) has been applied. Labs Laboratory Tests Test 05/20/19 10:53 05/20/19 11:23 05/20/19 16:55 05/20/19 20:55 Glucose (Fingerstick) 286 mg/dL (70-99) 346 mg/dL (70-99) 320 mg/dL (70-99) White Blood Count 16.5 x10^3/uL (4.0-11.0) Red Blood Count 2.81 x10^6/uL (4.30-5.70) Hemoglobin 8.2 g/dL (13.0-17.5) Hematocrit 24.9 % (39.0-53.0) Mean Corpuscular Volume 89 fL (79-100) Mean Corpuscular Hemoglobin 29 pg (25-35) Mean Corpuscular Hemoglobin Concent 33 g/dL (31-37) Red Cell Distribution Width 17.4 % (11.5-14.5) Platelet Count 324 x10^3/uL (140-400) Sodium Level 139 mmol/L (136-145) Potassium Level 4.0 mmol/L (3.5-5.1) Chloride Level 101 mmol/L (98-107) Carbon Dioxide Level 29 mmol/L (21-32) Anion Gap 9 (6-14) Blood Urea Nitrogen 53 mg/dL (8-26) Creatinine 2.0 mg/dL (0.7-1.3) Estimated GFR (Cockcroft-Gault) 33.2 BUN/Creatinine Ratio 27 (6-20) Glucose Level 295 mg/dL (70-99) Calcium Level 8.0 mg/dL (8.5-10.1) Total Bilirubin 0.5 mg/dL (0.2-1.0) Aspartate Amino Transf (AST/SGOT) 35 U/L (15-37) Alanine Aminotransferase (ALT/SGPT) 40 U/L (16-63) Alkaline Phosphatase 367 U/L (46-116) Total Protein 6.3 g/dL (6.4-8.2) Albumin 1.6 g/dL (3.4-5.0) Albumin/Globulin Ratio 0.3 (1.0-1.7) Test 05/21/19 08:06 05/21/19 11:16 05/21/19 14:25 05/21/19 14:55 Glucose (Fingerstick) 281 mg/dL (70-99) 207 mg/dL (70-99) Iron Level 12 ug/dL (65-175) Total Iron Binding Capacity 118 ug/dL (250-450) Iron Saturation 10 % (15-34) Ferritin 379 ng/mL (26-388) PP-Qck-D-Type Natriuretic Peptide > 73684 pg/mL (0-124) Test 05/21/19 16:35 05/21/19 17:13 05/21/19 20:35 05/22/19 05:00 Urine Random Creatinine 48.2 mg/dL (Not Establ.) Urine Random Total Protein 67.7 mg/dL (Not Establ.) Urine Protein/Creatinine Ratio 1405 mg/g (0-200) Bedside Venous pH 7.46 (7.32-7.42) Bedside Venous pCO2 42 mmHg (41-51) Bedside Venous pO2 46 mmHg (20-40) Venous Blood HCO3 30 mmol/L (24-28) POC Venous O2 Saturation (Stephan) 84 % Bedside FiO2 21.0 Glucose (Fingerstick) 231 mg/dL (70-99) 182 mg/dL (70-99) White Blood Count 11.5 x10^3/uL (4.0-11.0) Red Blood Count 2.44 x10^6/uL (4.30-5.70) Hemoglobin 6.9 g/dL (13.0-17.5) Hematocrit 21.4 % (39.0-53.0) Mean Corpuscular Volume 88 fL (79-100) Mean Corpuscular Hemoglobin 28 pg (25-35) Mean Corpuscular Hemoglobin Concent 32 g/dL (31-37) Red Cell Distribution Width 17.1 % (11.5-14.5) Platelet Count 280 x10^3/uL (140-400) Neutrophils (%) (Auto) 86 % (31-73) Lymphocytes (%) (Auto) 6 % (24-48) Monocytes (%) (Auto) 7 % (0-9) Eosinophils (%) (Auto) 1 % (0-3) Basophils (%) (Auto) 0 % (0-3) Neutrophils # (Auto) 9.9 x10^3/uL (1.8-7.7) Lymphocytes # (Auto) 0.7 x10^3/uL (1.0-4.8) Monocytes # (Auto) 0.8 x10^3/uL (0.0-1.1) Eosinophils # (Auto) 0.1 x10^3/uL (0.0-0.7) Basophils # (Auto) 0.0 x10^3/uL (0.0-0.2) Sodium Level 142 mmol/L (136-145) Potassium Level 3.6 mmol/L (3.5-5.1) Chloride Level 104 mmol/L (98-107) Carbon Dioxide Level 32 mmol/L (21-32) Anion Gap 6 (6-14) Blood Urea Nitrogen 56 mg/dL (8-26) Creatinine 2.0 mg/dL (0.7-1.3) Estimated GFR (Cockcroft-Gault) 33.2 BUN/Creatinine Ratio 28 (6-20) Glucose Level 171 mg/dL (70-99) Calcium Level 7.7 mg/dL (8.5-10.1) Total Bilirubin 0.4 mg/dL (0.2-1.0) Aspartate Amino Transf (AST/SGOT) 64 U/L (15-37) Alanine Aminotransferase (ALT/SGPT) 54 U/L (16-63) Alkaline Phosphatase 300 U/L (46-116) Total Protein 5.6 g/dL (6.4-8.2) Albumin 1.4 g/dL (3.4-5.0) Albumin/Globulin Ratio 0.3 (1.0-1.7) Test 05/22/19 08:17 Glucose (Fingerstick) 162 mg/dL (70-99) Laboratory Tests Test 05/21/19 11:16 05/21/19 14:25 05/21/19 14:55 05/21/19 16:35 Glucose (Fingerstick) 207 mg/dL (70-99) Iron Level 12 ug/dL (65-175) Total Iron Binding Capacity 118 ug/dL (250-450) Iron Saturation 10 % (15-34) Ferritin 379 ng/mL (26-388) XX-Gyl-A-Type Natriuretic Peptide > 55424 pg/mL (0-124) Urine Random Creatinine 48.2 mg/dL (Not Establ.) Urine Random Total Protein 67.7 mg/dL (Not Establ.) Urine Protein/Creatinine Ratio 1405 mg/g (0-200) Test 05/21/19 17:13 05/21/19 20:35 05/22/19 05:00 05/22/19 08:17 Bedside Venous pH 7.46 (7.32-7.42) Bedside Venous pCO2 42 mmHg (41-51) Bedside Venous pO2 46 mmHg (20-40) Venous Blood HCO3 30 mmol/L (24-28) POC Venous O2 Saturation (Stephan) 84 % Bedside FiO2 21.0 Glucose (Fingerstick) 231 mg/dL (70-99) 182 mg/dL (70-99) 162 mg/dL (70-99) White Blood Count 11.5 x10^3/uL (4.0-11.0) Red Blood Count 2.44 x10^6/uL (4.30-5.70) Hemoglobin 6.9 g/dL (13.0-17.5) Hematocrit 21.4 % (39.0-53.0) Mean Corpuscular Volume 88 fL (79-100) Mean Corpuscular Hemoglobin 28 pg (25-35) Mean Corpuscular Hemoglobin Concent 32 g/dL (31-37) Red Cell Distribution Width 17.1 % (11.5-14.5) Platelet Count 280 x10^3/uL (140-400) Neutrophils (%) (Auto) 86 % (31-73) Lymphocytes (%) (Auto) 6 % (24-48) Monocytes (%) (Auto) 7 % (0-9) Eosinophils (%) (Auto) 1 % (0-3) Basophils (%) (Auto) 0 % (0-3) Neutrophils # (Auto) 9.9 x10^3/uL (1.8-7.7) Lymphocytes # (Auto) 0.7 x10^3/uL (1.0-4.8) Monocytes # (Auto) 0.8 x10^3/uL (0.0-1.1) Eosinophils # (Auto) 0.1 x10^3/uL (0.0-0.7) Basophils # (Auto) 0.0 x10^3/uL (0.0-0.2) Sodium Level 142 mmol/L (136-145) Potassium Level 3.6 mmol/L (3.5-5.1) Chloride Level 104 mmol/L (98-107) Carbon Dioxide Level 32 mmol/L (21-32) Anion Gap 6 (6-14) Blood Urea Nitrogen 56 mg/dL (8-26) Creatinine 2.0 mg/dL (0.7-1.3) Estimated GFR (Cockcroft-Gault) 33.2 BUN/Creatinine Ratio 28 (6-20) Glucose Level 171 mg/dL (70-99) Calcium Level 7.7 mg/dL (8.5-10.1) Total Bilirubin 0.4 mg/dL (0.2-1.0) Aspartate Amino Transf (AST/SGOT) 64 U/L (15-37) Alanine Aminotransferase (ALT/SGPT) 54 U/L (16-63) Alkaline Phosphatase 300 U/L (46-116) Total Protein 5.6 g/dL (6.4-8.2) Albumin 1.4 g/dL (3.4-5.0) Albumin/Globulin Ratio 0.3 (1.0-1.7) Medications Current Medications Sodium Chloride 1,000 ml @ 75 mls/hr [id number] IV Last administered on 05/18/19at 21:44; Start 05/17/19 at 12:00; Stop 05/19/19 at 15:49; Status DC Bumetanide (Bumex) 1 mg BID94 PO Last administered on 05/21/19at 12:07; Start 05/17/19 at 16:00; Stop 05/21/19 at 12:44; Status DC Clopidogrel Bisulfate (Plavix) 75 mg DAILY PO Last administered on 05/21/19at 12:07; Start 05/18/19 at 09:00 Finasteride (Proscar) 5 mg DAILY PO Last administered on 05/22/19at 08:19; Start 05/18/19 at 09:00 Isosorbide Mononitrate (Imdur) 30 mg DAILY PO Last administered on 05/21/19at 12:07; Start 05/18/19 at 09:00; Stop 05/21/19 at 12:44; Status DC Metoprolol Succinate (Toprol Xl) 25 mg DAILY PO Last administered on 05/22/19 08:20; Start 05/18/19 at 09:00 Tamsulosin HCl (Flomax) 0.4 mg BID PO Last administered on 05/22/19 08:19; Start 05/17/19 at 21:00 Atorvastatin Calcium (Lipitor) 80 mg QHS PO Last administered on 05/21/19 21:22; Start 05/17/19 at 21:00 Insulin Human Lispro (HumaLOG) 8 units TIDWMEALS SQ Last administered on at 08:30; Start 05/17/19 at 12:30 Insulin Glargine (Lantus Syringe) 20 unit QHS SQ ; Start 05/17/19 at 21:00; Stop 05/17/19 at 12:26; Status DC Metolazone (Zaroxolyn) 5 mg DAILY PO Last administered on 05/21/19at 12:06; Start 05/18/19 at 09:00; Stop 05/21/19 at 12:44; Status DC Potassium Chloride (Klor-Con) 20 meq DAILYWBKFT PO Last administered on 05/22/19 08:19; Start 05/18/19 at 08:00 Insulin Glargine (Lantus Syringe) 20 unit QHS SQ Last administered on 05/21/19at 21:46; Start 05/17/19 at 21:00 Sodium Hypochlorite (Dakin'S 1/4 Strength) 1 yg DAILY TP Last administered on 05/18/19at 12:40; Start 05/17/19 at 13:30; Stop 05/21/19 at 12:37; Status DC Meropenem 500 mg/ Sodium Chloride 50 ml @ 100 mls/hr Q8HRS IV Last administered on 05/22/19at 05:40; Start 05/17/19 at 14:00 Linezolid (Zyvox) 600 mg BID PO Last administered on 05/19/19at 08:19; Start 05/17/19 at 14:00; Stop 05/19/19 at 09:36; Status DC Lactobacillus Rhamnosus (Culturelle) 1 cap BID PO Last administered on 05/22/19 08:19; Start 05/18/19 at 21:00 Daptomycin 320 mg/ Sodium Chloride 50 ml @ 100 mls/hr Q24H IV Last administered on 05/21/19at 12:08; Start 05/19/19 at 09:45 Lidocaine HCl (Buffered Lidocaine 1%) 3 ml STK-MED ONCE .ROUTE ; Start 05/19/19 at 10:05; Stop 05/19/19 at 10:05; Status DC Multivitamins (Thera M Plus) 1 tab DAILY PO Last administered on 05/22/19at 08:20; Start 05/19/19 at 11:00 Lidocaine HCl (Buffered Lidocaine 1%) 3 ml 1X ONCE INJ Last administered on 05/19/19at 11:11; Start 05/19/19 at 11:00; Stop 05/19/19 at 11:01; Status DC Insulin Human Lispro (HumaLOG) 2 units 1X ONCE SQ Last administered on 05/20/19at 17:50; Start 05/20/19 at 17:30; Stop 05/20/19 at 17:31; Status DC Aspirin (Ecotrin) 81 mg DAILYWBKFT PO Last administered on 05/22/19at 08:19; Start 05/21/19 at 12:45 Milrinone Lactate/ Dextrose 100 ml @ 2.977 mls/ hr CONT PRN IV SEE I/O RECORD Last administered on 05/21/19at 15:57; Start 05/21/19 at 12:45 Furosemide (Lasix) 40 mg BID92 IVP Last administered on 05/22/19at 08:32; Start 05/21/19 at 14:00 Acetaminophen (Tylenol) 650 mg 1X PRN PRN PO PRE-TRANSFUSION; Start 05/22/19 at 06:30 Diphenhydramine HCl (Benadryl) 25 mg PRN 1X PRN PO PRE-TRANSFUSION; Start 05/22/19 at 06:30 Active Scripts Active Reported [e] Metolazone 5 Mg Tablet 5 Mg PO DAILY Clopidogrel (Clopidogrel Bisulfate) 75 Mg Tablet 1 Tab PO DAILY Bumetanide 1 Mg Tablet 1 Tab PO BID Tresiba (Insulin Degludec) 100 Unit/1 Ml Vial 20 Unit SQ HS Novolog (Insulin Aspart) 100 Unit/1 Ml Cartridge 8 Unit SQ TIDWMEALS Potassium Chloride 20 Meq Tablet.er 1 Tab PO DAILY 30 Days Finasteride 5 Mg Tablet 5 Mg PO DAILY Metoprolol Succinate ( Xl ) (Metoprolol Succinate) 25 Mg Tab.er.24h 25 Mg PO DAILY Isosorbide Mononitrate Er (Isosorbide Mononitrate) 30 Mg Tab.er.24h 30 Mg PO DAILY Atorvastatin Calcium 80 Mg Tablet 80 Mg PO DAILY Flomax (Tamsulosin Hcl) 0.4 Mg Cap.er.24h 0.4 Mg PO BID Vitals/I & O Vital Sign - Last 24 Hours 05/21/19 05/21/19 05/21/19 05/21/19 11:00 12:07 12:07 15:00 Temp 97.6 97.3 97.6 97.3 Pulse 96 96 96 101 Resp 14 16 B/P (MAP) 121/68 (85) 121/68 121/68 131/71 (91) Pulse Ox 94 98 O2 Delivery Room Air Room Air 05/21/19 05/21/19 05/21/19 05/21/19 15:35 16:00 16:15 16:30 Temp 98.3 98.3 Pulse 99 100 100 100 Resp 22 B/P (MAP) 140/82 (101) 132/82 (99) 142/84 (103) 140/83 (102) Pulse Ox 96 O2 Delivery Room Air 05/21/19 05/21/19 05/21/19 05/21/19 16:45 17:00 17:30 18:00 Pulse 98 100 106 106 B/P (MAP) 136/82 (100) 140/85 (103) 123/74 (90) 138/73 (94) 05/21/19 05/21/19 05/21/19 05/21/19 19:00 19:28 19:31 22:37 Temp 99.1 98.3 99.1 98.3 Pulse 110 108 97 Resp 16 16 B/P (MAP) 133/68 (89) 138/78 (98) 117/64 (81) Pulse Ox 95 98 O2 Delivery Nasal Cannula Nasal Cannula Nasal Cannula O2 Flow Rate 1.0 1.0 1.0 05/22/19 05/22/19 05/22/19 02:49 07:40 08:20 Temp 97.8 97.8 Pulse 96 96 Resp 16 B/P (MAP) 109/57 (74) 133/76 Pulse Ox 94 O2 Delivery Nasal Cannula Nasal Cannula O2 Flow Rate 1.0 1.0 Intake and Output 05/21/19 05/21/19 05/22/19 15:00 23:00 07:00 Intake Total 200 ml 350 ml 50 ml Output Total 475 ml 725 ml 400 ml Balance -275 ml -375 ml -350 ml EDGARDO CROW MD May 22, 2019 08:44
--- NOTE | 2019-05-22 09:35 | PDOC ---
Infectious Disease Note Subjective Subjective Transferred to [facility] for milrinone gtt Says feels good Denies pain No fevers Vital Sign Vital Signs Vital Signs Date Time Temp Pulse Resp B/P (MAP) Pulse Ox O2 Delivery O2 Flow Rate FiO2 05/22/19 08:20 96 133/76 05/22/19 07:40 Nasal Cannula 1.0 05/22/19 07:00 97.8 94 97.8 05/22/19 02:49 16 Physical Exam PHYSICAL EXAM GENERAL: Sitting on the side of the bed, alert, eating HEENT: Oral cavity clear, no lesions NECK: Supple. LUNGS: Clear. HEART: S1, S2 regular. ABDOMEN: Soft EXTREMITIES: Foot wounds bandaged SKIN: without rash NEUROLOGIC: Alert, responds appropriately RUE-PICC (05/19) Labs Lab Laboratory Tests Test 05/21/19 11:16 05/21/19 14:25 05/21/19 14:55 05/21/19 16:35 Glucose (Fingerstick) 207 mg/dL (70-99) Iron Level 12 ug/dL (65-175) Total Iron Binding Capacity 118 ug/dL (250-450) Iron Saturation 10 % (15-34) Ferritin 379 ng/mL (26-388) KS-Bsf-L-Type Natriuretic Peptide > 15872 pg/mL (0-124) Urine Random Creatinine 48.2 mg/dL (Not Establ.) Urine Random Total Protein 67.7 mg/dL (Not Establ.) Urine Protein/Creatinine Ratio 1405 mg/g (0-200) Test 05/21/19 17:13 05/21/19 20:35 05/22/19 05:00 05/22/19 08:17 Bedside Venous pH 7.46 (7.32-7.42) Bedside Venous pCO2 42 mmHg (41-51) Bedside Venous pO2 46 mmHg (20-40) Venous Blood HCO3 30 mmol/L (24-28) POC Venous O2 Saturation (Stephan) 84 % Bedside FiO2 21.0 Glucose (Fingerstick) 231 mg/dL (70-99) 182 mg/dL (70-99) 162 mg/dL (70-99) White Blood Count 11.5 x10^3/uL (4.0-11.0) Red Blood Count 2.44 x10^6/uL (4.30-5.70) Hemoglobin 6.9 g/dL (13.0-17.5) Hematocrit 21.4 % (39.0-53.0) Mean Corpuscular Volume 88 fL (79-100) Mean Corpuscular Hemoglobin 28 pg (25-35) Mean Corpuscular Hemoglobin Concent 32 g/dL (31-37) Red Cell Distribution Width 17.1 % (11.5-14.5) Platelet Count 280 x10^3/uL (140-400) Neutrophils (%) (Auto) 86 % (31-73) Lymphocytes (%) (Auto) 6 % (24-48) Monocytes (%) (Auto) 7 % (0-9) Eosinophils (%) (Auto) 1 % (0-3) Basophils (%) (Auto) 0 % (0-3) Neutrophils # (Auto) 9.9 x10^3/uL (1.8-7.7) Lymphocytes # (Auto) 0.7 x10^3/uL (1.0-4.8) Monocytes # (Auto) 0.8 x10^3/uL (0.0-1.1) Eosinophils # (Auto) 0.1 x10^3/uL (0.0-0.7) Basophils # (Auto) 0.0 x10^3/uL (0.0-0.2) Sodium Level 142 mmol/L (136-145) Potassium Level 3.6 mmol/L (3.5-5.1) Chloride Level 104 mmol/L (98-107) Carbon Dioxide Level 32 mmol/L (21-32) Anion Gap 6 (6-14) Blood Urea Nitrogen 56 mg/dL (8-26) Creatinine 2.0 mg/dL (0.7-1.3) Estimated GFR (Cockcroft-Gault) 33.2 BUN/Creatinine Ratio 28 (6-20) Glucose Level 171 mg/dL (70-99) Calcium Level 7.7 mg/dL (8.5-10.1) Total Bilirubin 0.4 mg/dL (0.2-1.0) Aspartate Amino Transf (AST/SGOT) 64 U/L (15-37) Alanine Aminotransferase (ALT/SGPT) 54 U/L (16-63) Alkaline Phosphatase 300 U/L (46-116) Total Protein 5.6 g/dL (6.4-8.2) Albumin 1.4 g/dL (3.4-5.0) Albumin/Globulin Ratio 0.3 (1.0-1.7) Objective Assessment Left foot diabetic foot infection, looks really bad vascular insufficiency as well as infection with a deep seated wound all the way to the tendons and bone. Diabetes. Hypertension. Coronary artery disease. Ischemic cardiomyopathy h/o ESBL Plan Plan of Care Awaiting amputation cont Dapto and meropenem Monitor for abx toxicities Probiotics Local wound care as directed D/w nursing Attending Co-Sign The patient was seen and interviewed as well as examined at the bedside. The chart was reviewed. The case was discussed. Agree with the plan of care. BOONE TELLO APRN May 22, 2019 09:35 STORM GIL MD May 22, 2019 12:33
[2019-05-22] MEDS: DAPTOmycin (GENERIC) IVPB 320 MG in IV NORMAL SALINE 50ML 50 ML IV SCH (09:40)
--- NOTE | 2019-05-22 10:28 | CARD ---
MR#: [id number] Date of Study: 05/21/2019 Ordering Physician: ISAURO WORLEY, Referring Physician: ISAURO WORLEY Tech: Zofia Boo RDCS APPROVED REPORT EXAM: Two-dimensional and M-mode echocardiogram with Doppler and color Doppler. Other Information Quality : Good INDICATION Cardiomyopathy 2D DIMENSIONS RVDd3.2 (2.9-3.5cm)Left Atrium(2D)3.7 (1.6-4.0cm) IVSd1.1 (0.7-1.1cm)Aortic Root(2D)3.0 (2.0-3.7cm) LVDd5.5 (3.9-5.9cm)LVOT Diameter2.1 (1.8-2.4cm) PWd1.1 (0.7-1.1cm)LVDs5.1 (2.5-4.0cm) FS (%) 7.2 %SV23.1 ml LVEF(%)15.9 (>50%) Aortic Valve AoV Peak Gurjit.103.0cm/sAoV VTI16.0cm AO Peak GR.4.2mmHgLVOT VTI 13.71cm AO Mean GR.3mmHgAVA (VTI)3.10cm2 AI P 1/2 [id number] Mitral Valve MV E Voagrxjd365.9cm/sMV DECEL [id number] MV A Jxzkksim72.1cm/sE/A Ratio1.2 TDI Lateral E' P. V7.53cm/sMedial E' P. V6.18cm/s E/Lateral E'14.2E/Medial E'17.3 Tricuspid Valve TR P. Ropcxamr903pk/sRAP IQOOLEML24zqYb TR Peak Gr.90uyBjXOKV13shBc Pulmonary Vein S1 Ywcexvip03.1cm/sS2 Hrzhrqwq37.09cm/s D2 Ingwpqdy77.1cm/s LEFT VENTRICLE The left ventricle is normal size. There is normal left ventricular wall thickness. Left ventricle sy stolic function is severely impaired. The Ejection Fraction is 20-25%. There is severe global hypokin esis of the left ventricle. Transmitral Doppler flow pattern is Grade II-pseudonormal filling dynamic s. RIGHT VENTRICLE The right ventricle is normal size. The right ventricular systolic function is normal. ATRIA The left atrium is moderately dilated. The right atrium size is normal. The interatrial septum is int act with no evidence for an atrial septal defect or patent foramen ovale as noted on 2-D or Doppler i maging. AORTIC VALVE The aortic valve is calcified but opens well. Doppler and Color Flow revealed mild aortic regurgitati on. There is no significant aortic valvular stenosis. MITRAL VALVE The mitral valve is thickened but opens well. There is no evidence of mitral valve prolapse. There is no mitral valve stenosis. Doppler and Color-flow revealed mild mitral regurgitation. TRICUSPID VALVE The tricuspid valve is normal in structure and function. Doppler and Color Flow revealed trace to mil d tricuspid regurgitation. There is moderate pulmonary hypertension. The PA pressure was estimated at 59 mmHg. There is no tricuspid valve stenosis. PULMONIC VALVE Doppler and Color Flow revealed mild pulmonic valvular regurgitation. There is no pulmonic valvular s tenosis. GREAT VESSELS The aortic root is normal in size. The ascending aorta is normal in size. The IVC is dilated and анна apses <50% with inspiration. PERICARDIAL EFFUSION There is large pleural effusion. There is a trace circumferential pericardial effusion. Critical Notification Critical Value: No <Conclusion> Left ventricle systolic function is severely impaired. The Ejection Fraction is 20-25%. There is severe global hypokinesis of the left ventricle. Doppler and Color Flow revealed trace to mild tricuspid regurgitation. There is moderate pulmonary hy pertension. The PA pressure was estimated at 59 mmHg. There is large pleural effusion. Signed by : Noah Callahan, Electronically Approved : 05/22/2019 10:27:36
--- NOTE | 2019-05-22 11:17 | PDOC ---
SUBJECTIVE ROS Acute on chronic renal insufficiency Patient denies any new complaints. He has been moved to the telemetry floor now that he is on inotropes. He is tolerating it well. Denies new complaints. Denies shortness of breath OBJECTIVE Vital Signs Vital Signs Date Time Temp Pulse Resp B/P (MAP) Pulse Ox O2 Delivery O2 Flow Rate FiO2 05/22/19 08:20 96 133/76 05/22/19 07:40 Nasal Cannula 1.0 05/22/19 07:00 97.8 94 97.8 05/22/19 02:49 16 I & 0 Intake and Output 05/22/19 07:00 Intake Total 600 ml Output Total 1600 ml Balance -1000 ml Intake Oral 450 ml IV Total 150 ml Output Urine Total 1600 ml PHYSICAL EXAM Physical Exam General Appearance: Awake Alert Oriented x 3 In no Distress, is actually getting a shave Eyes: VIsion Unchanged Conjunctiva Normal EN: No EN Drainage Mucous Memb. moist Neck: no JVD min JVP Supple no Thyromegaly CVS: S1 S2 soft Murmur No Gallop No Rub no Edema Resp: no Rales no Rhonchi no Acc. 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 Severe hypoalbuminemia: Suspect early due to ongoing infection and once. Protein creatinine ratio is only 1.4 g Proteinuria: Nonnephrotic range. RAAS blockade can be initiated as tolerated. May need to use low doses of Aldactone rather than EMMIE-i/ ARB Anemia: In the setting of renal failure, noted to be iron deficient also. Auto Department for now and add IV iron since ferritin is not grossly elevated HTN: Blood pressures are relatively well controlled on multiple Current BP meds as reviewed. Defer to cardiology to optimize from cardiomyopathy standpoint Cardiac myopathy with EF of 25%: Patient has small pleural effusions and he remains on inotropes at this time. Diabetes: Will benefit from tighter blood sugar control. I will be deferred to primary team Renal ultrasound is noted to have bilateral pleural effusions and hence fluids will be decreased / discontinued Discussed Plan of Care and prognosis etc. at length with family. COMMENT/RELEVANT DATA Meds Current Medications Medications (Trade) Dose Ordered Sig/Rose Start Time Stop Time Status Last Admin Dose Admin Acetaminophen (Tylenol) 650 mg 1X PRN PRN 05/22/19 06:30 Aspirin (Ecotrin) 81 mg [id number] 05/21/19 12:45 05/22/19 08:19 81 MG Atorvastatin Calcium (Lipitor) 80 mg QHS 05/17/19 21:00 05/21/19 21:22 80 MG Bumetanide (Bumex) 1 mg [id number] 05/17/19 16:00 05/21/19 12:44 DC 05/21/19 12:07 1 MG Clopidogrel Bisulfate (Plavix) 75 mg DAILY 05/18/19 09:00 05/21/19 12:07 75 MG Daptomycin 320 mg/ Sodium Chloride 50 ml @ 100 mls/hr Q24H 05/19/19 09:45 05/22/19 09:40 100 MLS/HR Diphenhydramine HCl (Benadryl) 25 mg PRN 1X PRN 05/22/19 06:30 Finasteride (Proscar) 5 mg DAILY 05/18/19 09:00 05/22/19 08:19 5 MG Furosemide (Lasix) 40 mg [id number] 05/21/19 14:00 05/22/19 08:32 40 MG Insulin Glargine (Lantus Syringe) 20 unit QHS 05/17/19 21:00 05/21/19 21:46 20 UNIT Insulin Human Lispro (HumaLOG) 2 units 1X ONCE 05/20/19 17:30 05/20/19 17:31 DC 05/20/19 17:50 2 UNITS Isosorbide Mononitrate (Imdur) 30 mg DAILY 05/18/19 09:00 05/21/19 12:44 DC 05/21/19 12:07 30 MG Lactobacillus Rhamnosus (Culturelle) 1 cap BID 05/18/19 21:00 05/22/19 08:19 1 CAP Lidocaine HCl (Buffered Lidocaine 1%) 3 ml 1X ONCE 05/19/19 11:00 05/19/19 11:01 DC 05/19/19 11:11 5 ML Linezolid (Zyvox) 600 mg BID 05/17/19 14:00 05/19/19 09:36 DC 05/19/19 08:19 600 MG Meropenem 500 mg/ Sodium Chloride 50 ml @ 100 mls/hr Q8HRS 05/17/19 14:00 05/22/19 05:40 100 MLS/HR Metolazone (Zaroxolyn) 5 mg DAILY 05/18/19 09:00 05/21/19 12:44 DC 05/21/19 12:06 5 MG Metoprolol Succinate (Toprol Xl) 25 mg DAILY 05/18/19 09:00 05/22/19 08:20 25 MG Milrinone Lactate/ Dextrose 100 ml @ 2.977 mls/ hr CONT PRN 05/21/19 12:45 05/21/19 15:57 2.977 MLS/HR Multivitamins (Thera M Plus) 1 tab DAILY 05/19/19 11:00 05/22/19 08:20 1 TAB Potassium Chloride (Klor-Con) 20 meq [id number] 05/18/19 08:00 05/22/19 08:19 20 MEQ Sodium Hypochlorite (Dakin'S 1/4 Strength) 1 yg DAILY 05/17/19 13:30 05/21/19 12:37 DC 05/18/19 12:40 1 YG Sodium Chloride 1,000 ml @ 75 mls/hr [id number] 05/17/19 12:00 05/19/19 15:49 DC 05/18/19 21:44 75 MLS/HR Tamsulosin HCl (Flomax) 0.4 mg BID 05/17/19 21:00 05/22/19 08:19 0.4 MG Lab Laboratory Tests Test 05/21/19 11:16 05/21/19 14:25 05/21/19 14:55 05/21/19 16:35 Glucose (Fingerstick) 207 mg/dL (70-99) Iron Level 12 ug/dL (65-175) Total Iron Binding Capacity 118 ug/dL (250-450) Iron Saturation 10 % (15-34) Ferritin 379 ng/mL (26-388) MQ-Ayx-M-Type Natriuretic Peptide > 58927 pg/mL (0-124) Urine Random Creatinine 48.2 mg/dL (Not Establ.) Urine Random Total Protein 67.7 mg/dL (Not Establ.) Urine Protein/Creatinine Ratio 1405 mg/g (0-200) Test 05/21/19 17:13 05/21/19 20:35 05/22/19 05:00 05/22/19 08:17 Bedside Venous pH 7.46 (7.32-7.42) Bedside Venous pCO2 42 mmHg (41-51) Bedside Venous pO2 46 mmHg (20-40) Venous Blood HCO3 30 mmol/L (24-28) POC Venous O2 Saturation (Stephan) 84 % Bedside FiO2 21.0 Glucose (Fingerstick) 231 mg/dL (70-99) 182 mg/dL (70-99) 162 mg/dL (70-99) White Blood Count 11.5 x10^3/uL (4.0-11.0) Red Blood Count 2.44 x10^6/uL (4.30-5.70) Hemoglobin 6.9 g/dL (13.0-17.5) Hematocrit 21.4 % (39.0-53.0) Mean Corpuscular Volume 88 fL (79-100) Mean Corpuscular Hemoglobin 28 pg (25-35) Mean Corpuscular Hemoglobin Concent 32 g/dL (31-37) Red Cell Distribution Width 17.1 % (11.5-14.5) Platelet Count 280 x10^3/uL (140-400) Neutrophils (%) (Auto) 86 % (31-73) Lymphocytes (%) (Auto) 6 % (24-48) Monocytes (%) (Auto) 7 % (0-9) Eosinophils (%) (Auto) 1 % (0-3) Basophils (%) (Auto) 0 % (0-3) Neutrophils # (Auto) 9.9 x10^3/uL (1.8-7.7) Lymphocytes # (Auto) 0.7 x10^3/uL (1.0-4.8) Monocytes # (Auto) 0.8 x10^3/uL (0.0-1.1) Eosinophils # (Auto) 0.1 x10^3/uL (0.0-0.7) Basophils # (Auto) 0.0 x10^3/uL (0.0-0.2) Sodium Level 142 mmol/L (136-145) Potassium Level 3.6 mmol/L (3.5-5.1) Chloride Level 104 mmol/L (98-107) Carbon Dioxide Level 32 mmol/L (21-32) Anion Gap 6 (6-14) Blood Urea Nitrogen 56 mg/dL (8-26) Creatinine 2.0 mg/dL (0.7-1.3) Estimated GFR (Cockcroft-Gault) 33.2 BUN/Creatinine Ratio 28 (6-20) Glucose Level 171 mg/dL (70-99) Calcium Level 7.7 mg/dL (8.5-10.1) Phosphorus Level 4.0 mg/dL (2.6-4.7) Total Bilirubin 0.4 mg/dL (0.2-1.0) Aspartate Amino Transf (AST/SGOT) 64 U/L (15-37) Alanine Aminotransferase (ALT/SGPT) 54 U/L (16-63) Alkaline Phosphatase 300 U/L (46-116) Total Protein 5.6 g/dL (6.4-8.2) Albumin 1.4 g/dL (3.4-5.0) Albumin/Globulin Ratio 0.3 (1.0-1.7) Results All relevant outside records, renal labs, imaging studies, telemetry/EKG's were reviewed. REDD GIL MD May 22, 2019 11:17
[2019-05-22] MEDS: CLOPIDOGREL BISULFATE 75 MG TABLET PO SCH (12:15)
--- NOTE | 2019-05-22 12:17 | PDOC ---
CARDIOLOGY PROGRESS NOTE SUBJECTIVE: No new changes since yesterday. Denies any chest pain or dyspnea. Tolerating Milrinone well. OBJECTIVE: Vital Signs/I&O: Vital Signs Date Time Temp Pulse Resp B/P (MAP) Pulse Ox O2 Delivery O2 Flow Rate FiO2 05/22/19 11:36 98.2 97 16 134/80 98.2 05/22/19 11:00 96 Nasal Cannula 1.0 I & O 05/21/19 05/21/19 05/22/19 15:00 23:00 07:00 Intake Total 200 ml 350 ml 50 ml Output Total 475 ml 725 ml 400 ml Balance -275 ml -375 ml -350 ml Objective: Neck veins still elevated Normal heart tones. 1+ edema. Soft abd He is lying flat and not in too much distress CURRENT MEDICATIONS: Current Medications Medications (Trade) Dose Ordered Sig/Rose Route PRN Reason Start Time Stop Time Status Last Admin Dose Admin Aspirin (Ecotrin) 81 mg [id number] PO 05/21/19 12:45 05/22/19 08:19 Milrinone Lactate/ Dextrose 100 ml @ 2.977 mls/ hr CONT PRN IV SEE I/O RECORD 05/21/19 12:45 05/21/19 15:57 Furosemide (Lasix) 40 mg BID92 IVP 05/21/19 14:00 05/22/19 08:32 DIAGNOSTIC TESTING: labs reviewed. Venous blood gas may be mixed due to Sat of 84%, which would not be possible unless he has significant left to right shunting. Labs: Laboratory Tests 05/22/19 05:00 Laboratory Tests Test 05/21/19 14:25 05/21/19 16:35 05/21/19 17:13 05/21/19 20:35 Iron Level 12 ug/dL (65-175) L Total Iron Binding Capacity 118 ug/dL (250-450) L Iron Saturation 10 % (15-34) L Ferritin 379 ng/mL (26-388) Urine Random Creatinine 48.2 mg/dL (Not Establ.) Urine Random Total Protein 67.7 mg/dL (Not Establ.) Urine Protein/Creatinine Ratio 1405 mg/g (0-200) H Bedside Venous pH 7.46 (7.32-7.42) H Bedside Venous pCO2 42 mmHg (41-51) Bedside Venous pO2 46 mmHg (20-40) H Venous Blood HCO3 30 mmol/L (24-28) H POC Venous O2 Saturation (Stephan) 84 % Bedside FiO2 21.0 Glucose (Fingerstick) 231 mg/dL (70-99) H 182 mg/dL (70-99) H Test 05/22/19 05:00 05/22/19 08:17 White Blood Count 11.5 x10^3/uL (4.0-11.0) H Red Blood Count 2.44 x10^6/uL (4.30-5.70) L Hemoglobin 6.9 g/dL (13.0-17.5) *L Hematocrit 21.4 % (39.0-53.0) L Mean Corpuscular Volume 88 fL (79-100) Mean Corpuscular Hemoglobin 28 pg (25-35) Mean Corpuscular Hemoglobin Concent 32 g/dL (31-37) Red Cell Distribution Width 17.1 % (11.5-14.5) H Platelet Count 280 x10^3/uL (140-400) Neutrophils (%) (Auto) 86 % (31-73) H Lymphocytes (%) (Auto) 6 % (24-48) L Monocytes (%) (Auto) 7 % (0-9) Eosinophils (%) (Auto) 1 % (0-3) Basophils (%) (Auto) 0 % (0-3) Neutrophils # (Auto) 9.9 x10^3/uL (1.8-7.7) H Lymphocytes # (Auto) 0.7 x10^3/uL (1.0-4.8) L Monocytes # (Auto) 0.8 x10^3/uL (0.0-1.1) Eosinophils # (Auto) 0.1 x10^3/uL (0.0-0.7) Basophils # (Auto) 0.0 x10^3/uL (0.0-0.2) Sodium Level 142 mmol/L (136-145) Potassium Level 3.6 mmol/L (3.5-5.1) Chloride Level 104 mmol/L (98-107) Carbon Dioxide Level 32 mmol/L (21-32) Anion Gap 6 (6-14) Blood Urea Nitrogen 56 mg/dL (8-26) H Creatinine 2.0 mg/dL (0.7-1.3) H Estimated GFR (Cockcroft-Gault) 33.2 BUN/Creatinine Ratio 28 (6-20) H Glucose Level 171 mg/dL (70-99) H Calcium Level 7.7 mg/dL (8.5-10.1) L Phosphorus Level 4.0 mg/dL (2.6-4.7) Total Bilirubin 0.4 mg/dL (0.2-1.0) Aspartate Amino Transf (AST/SGOT) 64 U/L (15-37) H Alkaline Phosphatase 300 U/L (46-116) H Total Protein 5.6 g/dL (6.4-8.2) L Albumin 1.4 g/dL (3.4-5.0) L Albumin/Globulin Ratio 0.3 (1.0-1.7) L Glucose (Fingerstick) 162 mg/dL (70-99) H ASSESSMENT: 1. Acute on chronic ischemic CMP with decompensated HF 2. IBETH on CKD 3. Severe anemia and malnutrition 4. PAD with diabetic ulcers PLAN: 1. Continue present milrinone dose and IV diuretics. Aim for 2 L negative. 2. He may benefit from therapeutic thoracentesis prior to surgery to help optimize him. We may consider a RHC as well prior to surgery depending on his response to diuretics. Due to his hypoalbuminemia, diuresis may be difficult and therapeutic thoracentesis may be beneficial. He will ultimately need evaluation in the HF clinic. He is a poor candidate for consideration of transplant but may be a candidate for palliative LVAD, otherwise, would consider hospice in the next 6-12 months. Will follow along. ZEFERINO PISANO MD May 22, 2019 12:17
[2019-05-22 14:51] LABS: BASO # 0.1 x10^3/uL (0.0-0.2); BASO % 0 % (0-3); EOS # 0.1 x10^3/uL (0.0-0.7); EOS % 1 % (0-3); HEMATOCRIT 26.6 % (39.0-53.0); HEMOGLOBIN 8.7 g/dL (13.0-17.5); LYMPH # 0.6 x10^3/uL (1.0-4.8); LYMPH % 4 % (24-48); MEAN CORPUSCULAR HEMOGLOBIN 28 pg (25-35); MEAN CORPUSCULAR HGB CONC 33 g/dL (31-37); MEAN CORPUSCULAR VOLUME 87 fL (79-100); MONO # 0.9 x10^3/uL (0.0-1.1); MONO % 6 % (0-9); NEUT # 13.2 x10^3/uL (1.8-7.7); NEUT % 88 % (31-73); PLATELET COUNT 301 x10^3/uL (140-400); RED BLOOD COUNT 3.07 x10^6/uL (4.30-5.70); RED CELL DISTRIBUTION WIDTH 16.7 % (11.5-14.5)
--- NOTE | 2019-05-22 16:03 | CONS ---
DATE OF CONSULTATION: 05/22/2019 HISTORY OF PRESENT ILLNESS: This is a 68-year-old male that I am consulted on for shortness of breath and abnormal chest x-ray. This gentleman is admitted for a [id number] amputation. He has severe peripheral vascular disease and a left lower extremity infection. He has coronary artery disease and an ischemic cardiomyopathy. He has a left ventricular ejection fraction of 25%. He has volume overload and is being managed from a cardiovascular perspective by Dr. Callahan, who has changed his diuretic therapy accordingly. The patient does not have a history of pulmonary disease other than cardiogenic pleural effusions. He does not and never did smoke tobacco. He has never had pneumonia or pulmonary emboli. PAST MEDICAL HISTORY: Significant for the ischemic cardiomyopathy noted above and peripheral vascular disease. He has hypertension, type 2 diabetes and dyslipidemia. SOCIAL HISTORY: As noted above, he does not and never did smoke tobacco. 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 FAMILY HISTORY: Negative for lung disease. REVIEW OF SYSTEMS: A 12-point review of systems was only positive for what is noted above and the pain in his lower extremity. PHYSICAL EXAMINATION: GENERAL: Reveals a male on 1 liter of oxygen, in no acute distress. VITAL SIGNS: He is afebrile. His heart rate is 100 per minute and regular. His respiratory rate is 16 per minute and nonlabored. His blood pressure is 142/72. His oxygen saturation is 96%. His respiratory rate is 16 per minute and nonlabored. HEENT: Unremarkable. NECK: There is no lymphadenopathy. CHEST: He has equal, good breath sounds. He does have a few dependent rales. There are no rhonchi, rubs or wheezes. CARDIOVASCULAR: He has a regular rate and rhythm. I do not appreciate any murmur. ABDOMEN: Soft, without masses or organomegaly. EXTREMITIES: His left foot is wrapped. He does have bilateral pretibial edema. LABORATORY DATA: He had a chest x-ray that was done on 05/21/2019. He has an enlarged cardiovascular silhouette. He has bilateral infiltrates compatible with edema. He has bilateral pleural effusions. His BNP was greater than 35,000. IMPRESSION: Bilateral pleural effusions and pulmonary edema secondary to systolic heart failure. PLAN: We will follow along with you. His fluid management is being well managed by the Cardiology Service. Thank you for consulting us on this very nice gentleman. If you have any questions, please do not hesitate to contact me. HUMBERTO CHOWDHURY MD DR: CHUY/negrita JOB#: [id number] / [id number]
[2019-05-22] MEDS: MILRINONE 20MG/100ML PREMIX 100 ML IV PRN (20:30)
[2019-05-22] MEDS: ATORVASTATIN CALCIUM 40 MG TABLET. PO SCH (21:17)
[2019-05-22] MEDS: INSULIN GLARGINE SYRINGE. SQ SCH (21:25)
[2019-05-23] VITALS (8 sets, daily range): BP systolic 112–136; BP diastolic 60–73
[2019-05-23] MEDS: MEROPENEM 500 MG in IV NORMAL SALINE 50ML 50 ML IV SCH ×3 (05:40→21:32)
[2019-05-23 06:01] LABS: BASO % 0 % (0-3); EOS # 0.1 x10^3/uL (0.0-0.7); EOS % 1 % (0-3); HEMATOCRIT 23.5 % (39.0-53.0); HEMOGLOBIN 7.7 g/dL (13.0-17.5); LYMPH # 0.9 x10^3/uL (1.0-4.8); LYMPH % 7 % (24-48); MEAN CORPUSCULAR HEMOGLOBIN 28 pg (25-35); MEAN CORPUSCULAR HGB CONC 33 g/dL (31-37); MEAN CORPUSCULAR VOLUME 87 fL (79-100); MONO # 1.3 x10^3/uL (0.0-1.1); MONO % 9 % (0-9); NEUT # 11.1 x10^3/uL (1.8-7.7); NEUT % 83 % (31-73); PLATELET COUNT 271 x10^3/uL (140-400); RED BLOOD COUNT 2.71 x10^6/uL (4.30-5.70); RED CELL DISTRIBUTION WIDTH 16.7 % (11.5-14.5); WHITE BLOOD COUNT 13.4 x10^3/uL (4.0-11.0)
[2019-05-23] MEDS: INSULIN LISPRO 300 UNITS/3 ML VIAL. SQ SCH ×3 (08:00→18:17)
--- NOTE | 2019-05-23 08:44 | PDOC ---
CARDIOLOGY PROGRESS NOTE SUBJECTIVE: No new events overnight. Denies any chest pain Slept well. Still feels tired Family at bedside Eating ok. OBJECTIVE: Vital Signs/I&O: VSS Negative 2.5 L over the last 24-48 hours CURRENT MEDICATIONS: Milrinone, lasix, asa, plavix, metoprolol, atorvastatin DIAGNOSTIC TESTING: Labs pending CXR pending Tele unremarkable. ASSESSMENT: 1. Acute on chronic systolic and diastolic HF 2. HTN - stable 3. Anemia - mildly worsening again 4. Severe ischemic CMP 5. Severe PAD with diabetic ulcers PLAN: 1. Will continue milrinone today with lasix bid 2. Check BMP/Magnesium 3. Will repeat CXR today 4. Depending on his urinary response, repeat labs etc, will determine if he needs a RHC prior to taking him to the OR. 5. If he has worsening renal failure, would recommend bilateral thoracentesis prior to OR. Supportive care. Overall, poor prognosis as previously stated. He would not qualify for any advanced HF therapies at this time such as LVAD or Heart Txp due to his comorbidities. Likely will need DC on milrinone. Will follow along closely. ZEFERINO PISANO MD May 23, 2019 08:44
[2019-05-23] MEDS: FINASTERIDE 5 MG TABLET. PO SCH (08:54)
[2019-05-23] MEDS: POTASSIUM CHLORIDE 20 MEQ TABLET.ER. PO SCH (08:56)
[2019-05-23] MEDS: LACTOBACILLUS RHAMNOSUS GG 1 CAPSULE. PO SCH ×2 (08:57→21:33)
[2019-05-23] MEDS: MULTIVITAMIN with MINERAL TABLET. PO SCH (08:57)
[2019-05-23] MEDS: TAMSULOSIN 0.4 MG CAP.ER.24H. PO SCH ×2 (08:57→21:33)
[2019-05-23] MEDS: METOPROLOL SUCC 24HR ER 25 MG TAB.ER.24H. PO SCH (08:57)
[2019-05-23] MEDS: CLOPIDOGREL BISULFATE 75 MG TABLET PO SCH (08:57)
[2019-05-23] MEDS: FUROSEMIDE 40 MG/4 ML VIAL. IVP SCH ×2 (09:00→14:28)
[2019-05-23 09:07] LABS: CALCIUM 7.8 mg/dL (8.5-10.1); CREATININE 1.8 mg/dL (0.7-1.3); GFR 37.5; MAGNESIUM 2.2 mg/dL (1.8-2.4); POTASSIUM 3.5 mmol/L (3.5-5.1)
--- NOTE | 2019-05-23 09:42 | PDOC ---
Infectious Disease Note Subjective Subjective Comfortable, denies pain Fever Tmax 100.4 last evening ROS ROS per HPI Vital Sign Vital Signs Vital Signs Date Time Temp Pulse Resp B/P (MAP) Pulse Ox O2 Delivery O2 Flow Rate FiO2 05/23/19 08:57 94 118/69 05/23/19 03:24 98.0 16 93 Nasal Cannula 2.0 98.0 Physical Exam PHYSICAL EXAM GENERAL: Propped up in bed, alert, NAD HEENT: Oral cavity clear, no lesions NECK: Supple. LUNGS: Clear. HEART: S1, S2 regular. ABDOMEN: Soft EXTREMITIES: Foot wounds bandaged SKIN: without rash NEUROLOGIC: Alert, responds appropriately RUE-PICC (05/19) Labs Lab Laboratory Tests Test 05/22/19 12:06 05/22/19 14:42 05/22/19 17:43 05/22/19 20:59 Glucose (Fingerstick) 145 mg/dL (70-99) 165 mg/dL (70-99) 192 mg/dL (70-99) White Blood Count 15.0 x10^3/uL (4.0-11.0) Red Blood Count 3.07 x10^6/uL (4.30-5.70) Hemoglobin 8.7 g/dL (13.0-17.5) Hematocrit 26.6 % (39.0-53.0) Mean Corpuscular Volume 87 fL (79-100) Mean Corpuscular Hemoglobin 28 pg (25-35) Mean Corpuscular Hemoglobin Concent 33 g/dL (31-37) Red Cell Distribution Width 16.7 % (11.5-14.5) Platelet Count 301 x10^3/uL (140-400) Neutrophils (%) (Auto) 88 % (31-73) Lymphocytes (%) (Auto) 4 % (24-48) Monocytes (%) (Auto) 6 % (0-9) Eosinophils (%) (Auto) 1 % (0-3) Basophils (%) (Auto) 0 % (0-3) Neutrophils # (Auto) 13.2 x10^3/uL (1.8-7.7) Lymphocytes # (Auto) 0.6 x10^3/uL (1.0-4.8) Monocytes # (Auto) 0.9 x10^3/uL (0.0-1.1) Eosinophils # (Auto) 0.1 x10^3/uL (0.0-0.7) Basophils # (Auto) 0.1 x10^3/uL (0.0-0.2) Test 05/23/19 05:30 05/23/19 07:41 White Blood Count 13.4 x10^3/uL (4.0-11.0) Red Blood Count 2.71 x10^6/uL (4.30-5.70) Hemoglobin 7.7 g/dL (13.0-17.5) Hematocrit 23.5 % (39.0-53.0) Mean Corpuscular Volume 87 fL (79-100) Mean Corpuscular Hemoglobin 28 pg (25-35) Mean Corpuscular Hemoglobin Concent 33 g/dL (31-37) Red Cell Distribution Width 16.7 % (11.5-14.5) Platelet Count 271 x10^3/uL (140-400) Neutrophils (%) (Auto) 83 % (31-73) Lymphocytes (%) (Auto) 7 % (24-48) Monocytes (%) (Auto) 9 % (0-9) Eosinophils (%) (Auto) 1 % (0-3) Basophils (%) (Auto) 0 % (0-3) Neutrophils # (Auto) 11.1 x10^3/uL (1.8-7.7) Lymphocytes # (Auto) 0.9 x10^3/uL (1.0-4.8) Monocytes # (Auto) 1.3 x10^3/uL (0.0-1.1) Eosinophils # (Auto) 0.1 x10^3/uL (0.0-0.7) Basophils # (Auto) 0.0 x10^3/uL (0.0-0.2) Sodium Level 142 mmol/L (136-145) Potassium Level 3.5 mmol/L (3.5-5.1) Chloride Level 104 mmol/L (98-107) Carbon Dioxide Level 33 mmol/L (21-32) Anion Gap 5 (6-14) Blood Urea Nitrogen 62 mg/dL (8-26) Creatinine 1.8 mg/dL (0.7-1.3) Estimated GFR (Cockcroft-Gault) 37.5 Glucose Level 120 mg/dL (70-99) Calcium Level 7.8 mg/dL (8.5-10.1) Magnesium Level 2.2 mg/dL (1.8-2.4) KQ-Suc-W-Type Natriuretic Peptide > 66755 pg/mL (0-124) Glucose (Fingerstick) 102 mg/dL (70-99) Objective Assessment Fever Left foot diabetic foot infection to tendon an bone Vascular insufficiency Diabetes. Hypertension. Coronary artery disease. Ischemic cardiomyopathy h/o ESBL Plan Plan of Care Awaiting amputation cont Dapto and meropenem Monitor for abx toxicities Probiotics Local wound care as directed D/w son at bedside D/w nursing Attending Co-Sign The patient was seen and interviewed as well as examined at the bedside. The chart was reviewed. The case was discussed. Agree with the plan of care. BOONE TELLO APRN May 23, 2019 09:42 STORM GIL MD May 23, 2019 13:11
[2019-05-23] MEDS: DAPTOmycin (GENERIC) IVPB 320 MG in IV NORMAL SALINE 50ML 50 ML IV SCH (10:08)
--- NOTE | 2019-05-23 10:23 | RAD ---
PORTABLE CHEST 1V History: Heart failure Comparison: May 21, 2019 Findings: Single view of the chest is submitted. There is again right upper extremity PICC with the tip in the inferior aspect of the superior vena cava. Pericardial cardiac silhouette is again enlarged. There is again small left pleural effusion. There is persistent bibasilar airspace opacity somewhat greater on the left, slightly decreased on the right. There is also degree of interstitial opacity with basilar predominance probably somewhat decreased on the right. Perihilar opacity has somewhat decreased. No pneumothorax is identified. Impression: 1. There is again small left pleural effusion and also persistent bibasilar airspace opacity although somewhat decreased interstitial and airspace opacity at the right lung base and also somewhat decreased perihilar opacity likely due to decreased edema. Constellation of findings may be seen with left ventricular failure. Electronically signed by: Clayton Herzog MD (05/23/2019 10:20 AM) [facility]
--- NOTE | 2019-05-23 14:12 | PDOC ---
PULMONARY PROGRESS NOTES Subjective This is a 68-year-old male that I am consulted on for shortness of breath and abnormal chest x-ray. This gentleman is admitted for a [id number]-hrn-ejih amputation with anticipated surgery tomorrow. He has severe peripheral vascular disease and a left lower extremity infection. He has CHF and pleural effusions secondary to ischemic cardiomyopathy. He has been diuresed and feels better and not short of breath. Vitals Vital Signs Date Time Temp Pulse Resp B/P (MAP) Pulse Ox O2 Delivery O2 Flow Rate FiO2 05/23/19 11:00 98.1 98 16 112/60 (77) 90 Room Air 98.1 05/23/19 08:00 2.0 ROS: No Nausea, No Chest Pain, No Abdominal Pain, No Increase Cough General: Alert, Oriented X4 Lungs: Other (dependent rales) Cardiovascular: S1, S2 Abdomen: Soft, Non-tender Neuro Exam: Alert, Oriented, Normal Speech, No Focal Findings Extremities: No Edema Skin: Other (pretibial edema, foot bandaged) Labs Laboratory Tests Test 05/21/19 14:25 05/21/19 14:55 05/21/19 16:35 05/21/19 17:13 Iron Level 12 ug/dL (65-175) Total Iron Binding Capacity 118 ug/dL (250-450) Iron Saturation 10 % (15-34) Ferritin 379 ng/mL (26-388) PH-Pyd-F-Type Natriuretic Peptide > 11401 pg/mL (0-124) Urine Random Creatinine 48.2 mg/dL (Not Establ.) Urine Random Total Protein 67.7 mg/dL (Not Establ.) Urine Protein/Creatinine Ratio 1405 mg/g (0-200) Bedside Venous pH 7.46 (7.32-7.42) Bedside Venous pCO2 42 mmHg (41-51) Bedside Venous pO2 46 mmHg (20-40) Venous Blood HCO3 30 mmol/L (24-28) POC Venous O2 Saturation (Stephan) 84 % Bedside FiO2 21.0 Glucose (Fingerstick) 231 mg/dL (70-99) Test 05/21/19 20:35 05/22/19 05:00 05/22/19 08:17 05/22/19 12:06 Glucose (Fingerstick) 182 mg/dL (70-99) 162 mg/dL (70-99) 145 mg/dL (70-99) White Blood Count 11.5 x10^3/uL (4.0-11.0) Red Blood Count 2.44 x10^6/uL (4.30-5.70) Hemoglobin 6.9 g/dL (13.0-17.5) Hematocrit 21.4 % (39.0-53.0) Mean Corpuscular Volume 88 fL (79-100) Mean Corpuscular Hemoglobin 28 pg (25-35) Mean Corpuscular Hemoglobin Concent 32 g/dL (31-37) Red Cell Distribution Width 17.1 % (11.5-14.5) Platelet Count 280 x10^3/uL (140-400) Neutrophils (%) (Auto) 86 % (31-73) Lymphocytes (%) (Auto) 6 % (24-48) Monocytes (%) (Auto) 7 % (0-9) Eosinophils (%) (Auto) 1 % (0-3) Basophils (%) (Auto) 0 % (0-3) Neutrophils # (Auto) 9.9 x10^3/uL (1.8-7.7) Lymphocytes # (Auto) 0.7 x10^3/uL (1.0-4.8) Monocytes # (Auto) 0.8 x10^3/uL (0.0-1.1) Eosinophils # (Auto) 0.1 x10^3/uL (0.0-0.7) Basophils # (Auto) 0.0 x10^3/uL (0.0-0.2) Sodium Level 142 mmol/L (136-145) Potassium Level 3.6 mmol/L (3.5-5.1) Chloride Level 104 mmol/L (98-107) Carbon Dioxide Level 32 mmol/L (21-32) Anion Gap 6 (6-14) Blood Urea Nitrogen 56 mg/dL (8-26) Creatinine 2.0 mg/dL (0.7-1.3) Estimated GFR (Cockcroft-Gault) 33.2 BUN/Creatinine Ratio 28 (6-20) Glucose Level 171 mg/dL (70-99) Calcium Level 7.7 mg/dL (8.5-10.1) Phosphorus Level 4.0 mg/dL (2.6-4.7) Total Bilirubin 0.4 mg/dL (0.2-1.0) Aspartate Amino Transf (AST/SGOT) 64 U/L (15-37) Alanine Aminotransferase (ALT/SGPT) 54 U/L (16-63) Alkaline Phosphatase 300 U/L (46-116) Total Protein 5.6 g/dL (6.4-8.2) Albumin 1.4 g/dL (3.4-5.0) Albumin/Globulin Ratio 0.3 (1.0-1.7) Test 05/22/19 14:42 05/22/19 17:43 05/22/19 20:59 05/23/19 05:30 White Blood Count 15.0 x10^3/uL (4.0-11.0) 13.4 x10^3/uL (4.0-11.0) Red Blood Count 3.07 x10^6/uL (4.30-5.70) 2.71 x10^6/uL (4.30-5.70) Hemoglobin 8.7 g/dL (13.0-17.5) 7.7 g/dL (13.0-17.5) Hematocrit 26.6 % (39.0-53.0) 23.5 % (39.0-53.0) Mean Corpuscular Volume 87 fL (79-100) 87 fL (79-100) Mean Corpuscular Hemoglobin 28 pg (25-35) 28 pg (25-35) Mean Corpuscular Hemoglobin Concent 33 g/dL (31-37) 33 g/dL (31-37) Red Cell Distribution Width 16.7 % (11.5-14.5) 16.7 % (11.5-14.5) Platelet Count 301 x10^3/uL (140-400) 271 x10^3/uL (140-400) Neutrophils (%) (Auto) 88 % (31-73) 83 % (31-73) Lymphocytes (%) (Auto) 4 % (24-48) 7 % (24-48) Monocytes (%) (Auto) 6 % (0-9) 9 % (0-9) Eosinophils (%) (Auto) 1 % (0-3) 1 % (0-3) Basophils (%) (Auto) 0 % (0-3) 0 % (0-3) Neutrophils # (Auto) 13.2 x10^3/uL (1.8-7.7) 11.1 x10^3/uL (1.8-7.7) Lymphocytes # (Auto) 0.6 x10^3/uL (1.0-4.8) 0.9 x10^3/uL (1.0-4.8) Monocytes # (Auto) 0.9 x10^3/uL (0.0-1.1) 1.3 x10^3/uL (0.0-1.1) Eosinophils # (Auto) 0.1 x10^3/uL (0.0-0.7) 0.1 x10^3/uL (0.0-0.7) Basophils # (Auto) 0.1 x10^3/uL (0.0-0.2) 0.0 x10^3/uL (0.0-0.2) Glucose (Fingerstick) 165 mg/dL (70-99) 192 mg/dL (70-99) Sodium Level 142 mmol/L (136-145) Potassium Level 3.5 mmol/L (3.5-5.1) Chloride Level 104 mmol/L (98-107) Carbon Dioxide Level 33 mmol/L (21-32) Anion Gap 5 (6-14) Blood Urea Nitrogen 62 mg/dL (8-26) Creatinine 1.8 mg/dL (0.7-1.3) Estimated GFR (Cockcroft-Gault) 37.5 Glucose Level 120 mg/dL (70-99) Calcium Level 7.8 mg/dL (8.5-10.1) Magnesium Level 2.2 mg/dL (1.8-2.4) XV-Ihy-Y-Type Natriuretic Peptide > 42482 pg/mL (0-124) Test 05/23/19 07:41 05/23/19 11:59 Glucose (Fingerstick) 102 mg/dL (70-99) 217 mg/dL (70-99) Laboratory Tests Test 05/22/19 14:42 05/22/19 17:43 05/22/19 20:59 05/23/19 05:30 White Blood Count 15.0 x10^3/uL (4.0-11.0) 13.4 x10^3/uL (4.0-11.0) Red Blood Count 3.07 x10^6/uL (4.30-5.70) 2.71 x10^6/uL (4.30-5.70) Hemoglobin 8.7 g/dL (13.0-17.5) 7.7 g/dL (13.0-17.5) Hematocrit 26.6 % (39.0-53.0) 23.5 % (39.0-53.0) Mean Corpuscular Volume 87 fL (79-100) 87 fL (79-100) Mean Corpuscular Hemoglobin 28 pg (25-35) 28 pg (25-35) Mean Corpuscular Hemoglobin Concent 33 g/dL (31-37) 33 g/dL (31-37) Red Cell Distribution Width 16.7 % (11.5-14.5) 16.7 % (11.5-14.5) Platelet Count 301 x10^3/uL (140-400) 271 x10^3/uL (140-400) Neutrophils (%) (Auto) 88 % (31-73) 83 % (31-73) Lymphocytes (%) (Auto) 4 % (24-48) 7 % (24-48) Monocytes (%) (Auto) 6 % (0-9) 9 % (0-9) Eosinophils (%) (Auto) 1 % (0-3) 1 % (0-3) Basophils (%) (Auto) 0 % (0-3) 0 % (0-3) Neutrophils # (Auto) 13.2 x10^3/uL (1.8-7.7) 11.1 x10^3/uL (1.8-7.7) Lymphocytes # (Auto) 0.6 x10^3/uL (1.0-4.8) 0.9 x10^3/uL (1.0-4.8) Monocytes # (Auto) 0.9 x10^3/uL (0.0-1.1) 1.3 x10^3/uL (0.0-1.1) Eosinophils # (Auto) 0.1 x10^3/uL (0.0-0.7) 0.1 x10^3/uL (0.0-0.7) Basophils # (Auto) 0.1 x10^3/uL (0.0-0.2) 0.0 x10^3/uL (0.0-0.2) Glucose (Fingerstick) 165 mg/dL (70-99) 192 mg/dL (70-99) Sodium Level 142 mmol/L (136-145) Potassium Level 3.5 mmol/L (3.5-5.1) Chloride Level 104 mmol/L (98-107) Carbon Dioxide Level 33 mmol/L (21-32) Anion Gap 5 (6-14) Blood Urea Nitrogen 62 mg/dL (8-26) Creatinine 1.8 mg/dL (0.7-1.3) Estimated GFR (Cockcroft-Gault) 37.5 Glucose Level 120 mg/dL (70-99) Calcium Level 7.8 mg/dL (8.5-10.1) Magnesium Level 2.2 mg/dL (1.8-2.4) FQ-Afb-U-Type Natriuretic Peptide > 35812 pg/mL (0-124) Test 05/23/19 07:41 05/23/19 11:59 Glucose (Fingerstick) 102 mg/dL (70-99) 217 mg/dL (70-99) Medications Active Scripts Medications Dose Route/Sig Max Daily Dose Days Date Category [e] 05/17/19 Reported Metolazone 5 Mg Tablet 5 Mg PO DAILY 05/17/19 Reported Clopidogrel (Clopidogrel Bisulfate) 75 Mg Tablet 1 Tab PO DAILY 05/17/19 Reported Bumetanide 1 Mg Tablet 1 Tab PO BID 05/17/19 Reported Tresiba (Insulin Degludec) 100 Unit/1 Ml Vial 20 Unit SQ HS 05/17/19 Reported Novolog (Insulin Aspart) 100 Unit/1 Ml Cartridge 8 Unit SQ TIDWMEALS 05/17/19 Reported Potassium Chloride 20 Meq Tablet.er 1 Tab PO DAILY 30 05/17/19 Reported Finasteride 5 Mg Tablet 5 Mg PO DAILY 12/08/18 Reported Metoprolol Succinate ( Xl ) (Metoprolol Succinate) 25 Mg Tab.er.24h 25 Mg PO DAILY 12/08/18 Reported Isosorbide Mononitrate Er (Isosorbide Mononitrate) 30 Mg Tab.er.24h 30 Mg PO DAILY 6/18/19 Reported Atorvastatin Calcium 80 Mg Tablet 80 Mg PO DAILY 12/08/18 Reported Flomax (Tamsulosin Hcl) 0.4 Mg Cap.er.24h 0.4 Mg PO BID 12/08/18 Reported Comments CXR today still with pulmonary edema and pleural effusions, but significantly improved from CXR 05/21 Impression . Bilateral pleural effusions and pulmonary edema secondary to systolic heart failure, improved with diuresis Plan . Continue diuresis. Will follow. HUMBERTO CHOWDHURY MD May 23, 2019 14:12
--- NOTE | 2019-05-23 16:00 | PDOC ---
PROGRESS NOTES Chief Complaint Chief Complaint A/P: bilateral diabetic foot wounds coronary artery disease Congestive heart failure RECENT ECHO Left ventricle systolic function is moderate to severely impaired. The Ejection Fraction is 25-30%. Doppler and Color Flow revealed mild tricuspid regurgitation. The PA pressure was estimated at 27 mmHg. Hypertension Diabetes Urinary retention Diabetic foot infection with a recent surgery done in [place] Subtle erosive change cortical thinning at the medial most margin of the metatarsal shaft portion may be seen with osteomyelitis. PVD SEVERE CKD SEVERE PROTEIN-CALORIC MALNUTRITION Bilateral pleural effusions. Cholelithiasis. Small amount of ascites. No hydronephrosis in the kidneys. CXR 05/21 HX EFFUSION NEPHROLOGY CONSULT CARDIOLOGY CONSULT ECHO TELE BED ABD SONO FREQ LABS IV LASIX 38 MIN PT EXAM, CHART REVIEW, > 50% OF TIME SPENT WITH EXAM, CHART REVIEW, PT CARE COORDINATION History of Present Illness History of Present Illness Mr Denise is a 68 yo M w/ PMHx CAD, HTN, CHF, DM2 who is admitted for foot infecti on. Apparently, the patient lives in [place] and he is here for a second opinion. The patient recently AGREED WITH recommended amputation, so hence the patient and the family decided to bring him here for a second opinion. L BKA has been recommended by vascular surgery. PICC in place on 05/19/19. Seen by Cardiology, ID and vascular. 05/21/19: NEEDS CXR, NEPHROLOGY CONSULT, ECHO, TELE 05/22: Transferred to [facility] on milrinone GTT for worsening CHF. Hb dropped today. He consents to blood transfusion. Patient amenable to L BKA at this point. Still with pain on ambulation. No CP or SOB. Hb 7.7 today. Still feeling weak. Short of breath. Pain on ambulation. No chest pain. Still on milrinone Vitals Vitals Vital Signs Date Time Temp Pulse Resp B/P (MAP) Pulse Ox O2 Delivery O2 Flow Rate FiO2 05/23/19 11:00 98.1 98 16 112/60 (77) 90 Room Air 98.1 05/23/19 08:00 2.0 Physical Exam Physical Exam GENERAL: Propped up in bed, alert, NAD HEENT: Oral cavity clear, no lesions NECK: Supple. LUNGS: Clear. HEART: S1, S2 regular. ABDOMEN: Soft EXTREMITIES: Foot wounds bandaged SKIN: without rash NEUROLOGIC: Alert, responds appropriately RUE-PICC (05/19) General: Alert, Oriented X3, No acute distress Heart: Regular rate, Normal S1, Normal S2 Lungs: Other (dependent rales) Abdomen: Soft, No tenderness Extremities: No edema, Other (extensive tissue loss of the left foot with exposed midfoot bones and tendinous structure, there is surrounding granulation tissue, there is no evidence of purulent drainage, there is no malodor, there is no evidence of deep space abscess, significant portion of the plantar surface of the foot has been excised, there is a superficial wound isolated to the subcutaneous tissue on the dorsal surface of the right foot which is clean and granulating) Skin: Other (same as above) Labs LABS Laboratory Tests Test 05/22/19 17:43 05/22/19 20:59 05/23/19 05:30 05/23/19 07:41 Glucose (Fingerstick) 165 mg/dL (70-99) 192 mg/dL (70-99) 102 mg/dL (70-99) White Blood Count 13.4 x10^3/uL (4.0-11.0) Red Blood Count 2.71 x10^6/uL (4.30-5.70) Hemoglobin 7.7 g/dL (13.0-17.5) Hematocrit 23.5 % (39.0-53.0) Mean Corpuscular Volume 87 fL (79-100) Mean Corpuscular Hemoglobin 28 pg (25-35) Mean Corpuscular Hemoglobin Concent 33 g/dL (31-37) Red Cell Distribution Width 16.7 % (11.5-14.5) Platelet Count 271 x10^3/uL (140-400) Neutrophils (%) (Auto) 83 % (31-73) Lymphocytes (%) (Auto) 7 % (24-48) Monocytes (%) (Auto) 9 % (0-9) Eosinophils (%) (Auto) 1 % (0-3) Basophils (%) (Auto) 0 % (0-3) Neutrophils # (Auto) 11.1 x10^3/uL (1.8-7.7) Lymphocytes # (Auto) 0.9 x10^3/uL (1.0-4.8) Monocytes # (Auto) 1.3 x10^3/uL (0.0-1.1) Eosinophils # (Auto) 0.1 x10^3/uL (0.0-0.7) Basophils # (Auto) 0.0 x10^3/uL (0.0-0.2) Sodium Level 142 mmol/L (136-145) Potassium Level 3.5 mmol/L (3.5-5.1) Chloride Level 104 mmol/L (98-107) Carbon Dioxide Level 33 mmol/L (21-32) Anion Gap 5 (6-14) Blood Urea Nitrogen 62 mg/dL (8-26) Creatinine 1.8 mg/dL (0.7-1.3) Estimated GFR (Cockcroft-Gault) 37.5 Glucose Level 120 mg/dL (70-99) Calcium Level 7.8 mg/dL (8.5-10.1) Magnesium Level 2.2 mg/dL (1.8-2.4) TK-Auu-U-Type Natriuretic Peptide > 25567 pg/mL (0-124) Test 05/23/19 11:59 Glucose (Fingerstick) 217 mg/dL (70-99) Comment Review of Relevant I have reviewed the following items john (where applicable) has been applied. Labs Laboratory Tests Test 05/21/19 16:35 05/21/19 17:13 05/21/19 20:35 05/22/19 05:00 Urine Random Creatinine 48.2 mg/dL (Not Establ.) Urine Random Total Protein 67.7 mg/dL (Not Establ.) Urine Protein/Creatinine Ratio 1405 mg/g (0-200) Bedside Venous pH 7.46 (7.32-7.42) Bedside Venous pCO2 42 mmHg (41-51) Bedside Venous pO2 46 mmHg (20-40) Venous Blood HCO3 30 mmol/L (24-28) POC Venous O2 Saturation (Stephan) 84 % Bedside FiO2 21.0 Glucose (Fingerstick) 231 mg/dL (70-99) 182 mg/dL (70-99) White Blood Count 11.5 x10^3/uL (4.0-11.0) Red Blood Count 2.44 x10^6/uL (4.30-5.70) Hemoglobin 6.9 g/dL (13.0-17.5) Hematocrit 21.4 % (39.0-53.0) Mean Corpuscular Volume 88 fL (79-100) Mean Corpuscular Hemoglobin 28 pg (25-35) Mean Corpuscular Hemoglobin Concent 32 g/dL (31-37) Red Cell Distribution Width 17.1 % (11.5-14.5) Platelet Count 280 x10^3/uL (140-400) Neutrophils (%) (Auto) 86 % (31-73) Lymphocytes (%) (Auto) 6 % (24-48) Monocytes (%) (Auto) 7 % (0-9) Eosinophils (%) (Auto) 1 % (0-3) Basophils (%) (Auto) 0 % (0-3) Neutrophils # (Auto) 9.9 x10^3/uL (1.8-7.7) Lymphocytes # (Auto) 0.7 x10^3/uL (1.0-4.8) Monocytes # (Auto) 0.8 x10^3/uL (0.0-1.1) Eosinophils # (Auto) 0.1 x10^3/uL (0.0-0.7) Basophils # (Auto) 0.0 x10^3/uL (0.0-0.2) Sodium Level 142 mmol/L (136-145) Potassium Level 3.6 mmol/L (3.5-5.1) Chloride Level 104 mmol/L (98-107) Carbon Dioxide Level 32 mmol/L (21-32) Anion Gap 6 (6-14) Blood Urea Nitrogen 56 mg/dL (8-26) Creatinine 2.0 mg/dL (0.7-1.3) Estimated GFR (Cockcroft-Gault) 33.2 BUN/Creatinine Ratio 28 (6-20) Glucose Level 171 mg/dL (70-99) Calcium Level 7.7 mg/dL (8.5-10.1) Phosphorus Level 4.0 mg/dL (2.6-4.7) Total Bilirubin 0.4 mg/dL (0.2-1.0) Aspartate Amino Transf (AST/SGOT) 64 U/L (15-37) Alanine Aminotransferase (ALT/SGPT) 54 U/L (16-63) Alkaline Phosphatase 300 U/L (46-116) Total Protein 5.6 g/dL (6.4-8.2) Albumin 1.4 g/dL (3.4-5.0) Albumin/Globulin Ratio 0.3 (1.0-1.7) Test 05/22/19 08:17 05/22/19 12:06 05/22/19 14:42 05/22/19 17:43 Glucose (Fingerstick) 162 mg/dL (70-99) 145 mg/dL (70-99) 165 mg/dL (70-99) White Blood Count 15.0 x10^3/uL (4.0-11.0) Red Blood Count 3.07 x10^6/uL (4.30-5.70) Hemoglobin 8.7 g/dL (13.0-17.5) Hematocrit 26.6 % (39.0-53.0) Mean Corpuscular Volume 87 fL (79-100) Mean Corpuscular Hemoglobin 28 pg (25-35) Mean Corpuscular Hemoglobin Concent 33 g/dL (31-37) Red Cell Distribution Width 16.7 % (11.5-14.5) Platelet Count 301 x10^3/uL (140-400) Neutrophils (%) (Auto) 88 % (31-73) Lymphocytes (%) (Auto) 4 % (24-48) Monocytes (%) (Auto) 6 % (0-9) Eosinophils (%) (Auto) 1 % (0-3) Basophils (%) (Auto) 0 % (0-3) Neutrophils # (Auto) 13.2 x10^3/uL (1.8-7.7) Lymphocytes # (Auto) 0.6 x10^3/uL (1.0-4.8) Monocytes # (Auto) 0.9 x10^3/uL (0.0-1.1) Eosinophils # (Auto) 0.1 x10^3/uL (0.0-0.7) Basophils # (Auto) 0.1 x10^3/uL (0.0-0.2) Test 05/22/19 20:59 05/23/19 05:30 05/23/19 07:41 05/23/19 11:59 Glucose (Fingerstick) 192 mg/dL (70-99) 102 mg/dL (70-99) 217 mg/dL (70-99) White Blood Count 13.4 x10^3/uL (4.0-11.0) Red Blood Count 2.71 x10^6/uL (4.30-5.70) Hemoglobin 7.7 g/dL (13.0-17.5) Hematocrit 23.5 % (39.0-53.0) Mean Corpuscular Volume 87 fL (79-100) Mean Corpuscular Hemoglobin 28 pg (25-35) Mean Corpuscular Hemoglobin Concent 33 g/dL (31-37) Red Cell Distribution Width 16.7 % (11.5-14.5) Platelet Count 271 x10^3/uL (140-400) Neutrophils (%) (Auto) 83 % (31-73) Lymphocytes (%) (Auto) 7 % (24-48) Monocytes (%) (Auto) 9 % (0-9) Eosinophils (%) (Auto) 1 % (0-3) Basophils (%) (Auto) 0 % (0-3) Neutrophils # (Auto) 11.1 x10^3/uL (1.8-7.7) Lymphocytes # (Auto) 0.9 x10^3/uL (1.0-4.8) Monocytes # (Auto) 1.3 x10^3/uL (0.0-1.1) Eosinophils # (Auto) 0.1 x10^3/uL (0.0-0.7) Basophils # (Auto) 0.0 x10^3/uL (0.0-0.2) Sodium Level 142 mmol/L (136-145) Potassium Level 3.5 mmol/L (3.5-5.1) Chloride Level 104 mmol/L (98-107) Carbon Dioxide Level 33 mmol/L (21-32) Anion Gap 5 (6-14) Blood Urea Nitrogen 62 mg/dL (8-26) Creatinine 1.8 mg/dL (0.7-1.3) Estimated GFR (Cockcroft-Gault) 37.5 Glucose Level 120 mg/dL (70-99) Calcium Level 7.8 mg/dL (8.5-10.1) Magnesium Level 2.2 mg/dL (1.8-2.4) LR-Zew-O-Type Natriuretic Peptide > 82149 pg/mL (0-124) Laboratory Tests Test 05/22/19 17:43 05/22/19 20:59 05/23/19 05:30 05/23/19 07:41 Glucose (Fingerstick) 165 mg/dL (70-99) 192 mg/dL (70-99) 102 mg/dL (70-99) White Blood Count 13.4 x10^3/uL (4.0-11.0) Red Blood Count 2.71 x10^6/uL (4.30-5.70) Hemoglobin 7.7 g/dL (13.0-17.5) Hematocrit 23.5 % (39.0-53.0) Mean Corpuscular Volume 87 fL (79-100) Mean Corpuscular Hemoglobin 28 pg (25-35) Mean Corpuscular Hemoglobin Concent 33 g/dL (31-37) Red Cell Distribution Width 16.7 % (11.5-14.5) Platelet Count 271 x10^3/uL (140-400) Neutrophils (%) (Auto) 83 % (31-73) Lymphocytes (%) (Auto) 7 % (24-48) Monocytes (%) (Auto) 9 % (0-9) Eosinophils (%) (Auto) 1 % (0-3) Basophils (%) (Auto) 0 % (0-3) Neutrophils # (Auto) 11.1 x10^3/uL (1.8-7.7) Lymphocytes # (Auto) 0.9 x10^3/uL (1.0-4.8) Monocytes # (Auto) 1.3 x10^3/uL (0.0-1.1) Eosinophils # (Auto) 0.1 x10^3/uL (0.0-0.7) Basophils # (Auto) 0.0 x10^3/uL (0.0-0.2) Sodium Level 142 mmol/L (136-145) Potassium Level 3.5 mmol/L (3.5-5.1) Chloride Level 104 mmol/L (98-107) Carbon Dioxide Level 33 mmol/L (21-32) Anion Gap 5 (6-14) Blood Urea Nitrogen 62 mg/dL (8-26) Creatinine 1.8 mg/dL (0.7-1.3) Estimated GFR (Cockcroft-Gault) 37.5 Glucose Level 120 mg/dL (70-99) Calcium Level 7.8 mg/dL (8.5-10.1) Magnesium Level 2.2 mg/dL (1.8-2.4) VM-Svd-Y-Type Natriuretic Peptide > 09932 pg/mL (0-124) Test 05/23/19 11:59 Glucose (Fingerstick) 217 mg/dL (70-99) Medications Current Medications Sodium Chloride 1,000 ml @ 75 mls/hr [id number] IV Last administered on 05/18/19 21:44; Start 05/17/19 at 12:00; Stop 05/19/19 at 15:49; Status DC Bumetanide (Bumex) 1 mg [id number] PO Last administered on 05/21/19 12:07; Start 05/17/19 at 16:00; Stop 05/21/19 at 12:44; Status DC Clopidogrel Bisulfate (Plavix) 75 mg DAILY PO Last administered on 05/23/19 08 :57; Start 05/18/19 at 09:00 Finasteride (Proscar) 5 mg DAILY PO Last administered on 05/23/19 08:54; Start 05/18/19 at 09:00 Isosorbide Mononitrate (Imdur) 30 mg DAILY PO Last administered on 05/21/19at 12:07; Start 05/18/19 at 09:00; Stop 05/21/19 at 12:44; Status DC Metoprolol Succinate (Toprol Xl) 25 mg DAILY PO Last administered on 05/23/19 08:57; Start 05/18/19 at 09:00 Tamsulosin HCl (Flomax) 0.4 mg BID PO Last administered on 05/23/19 08:57; Start 05/17/19 at 21:00 Atorvastatin Calcium (Lipitor) 80 mg QHS PO Last administered on 05/22/19 21:17; Start 05/17/19 at 21:00 Insulin Human Lispro (HumaLOG) 8 units TIDWMEALS SQ Last administered on 05/23/19at 12:44; Start 05/17/19 at 12:30 Insulin Glargine (Lantus Syringe) 20 unit QHS SQ ; Start 05/17/19 at 21:00; Stop 05/17/19 at 12:26; Status DC Metolazone (Zaroxolyn) 5 mg DAILY PO Last administered on 11/29/19at 12:06; Start 05/18/19 at 09:00; Stop 05/21/19 at 12:44; Status DC Potassium Chloride (Klor-Con) 20 meq [id number] PO Last administered on 05/23/19at 08:56; Start 05/18/19 at 08:00 Insulin Glargine (Lantus Syringe) 20 unit QHS SQ Last administered on 05/22/19at 21:25; Start 05/17/19 at 21:00 Sodium Hypochlorite (Dakin'S 1/4 Strength) 1 yg DAILY TP Last administered on 05/18/19at 12:40; Start 05/17/19 at 13:30; Stop 05/21/19 at 12:37; Status DC Meropenem 500 mg/ Sodium Chloride 50 ml @ 100 mls/hr Q8HRS IV Last administered on 05/23/19at 14:28; Start 05/17/19 at 14:00 Linezolid (Zyvox) 600 mg BID PO Last administered on 05/19/19at 08:19; Start 05/17/19 at 14:00; Stop 05/19/19 at 09:36; Status DC Lactobacillus Rhamnosus (Culturelle) 1 cap BID PO Last administered on 05/23/19 08:57; Start 05/18/19 at 21:00 Daptomycin 320 mg/ Sodium Chloride 50 ml @ 100 mls/hr Q24H IV Last administered on 05/23/19at 10:08; Start 05/19/19 at 09:45 Lidocaine HCl (Buffered Lidocaine 1%) 3 ml STK-MED ONCE .ROUTE ; Start 05/19/19 at 10:05; Stop 05/19/19 at 10:05; Status DC Multivitamins (Thera M Plus) 1 tab DAILY PO Last administered on 05/23/19at 08:57; Start 05/19/19 at 11:00 Lidocaine HCl (Buffered Lidocaine 1%) 3 ml 1X ONCE INJ Last administered on 05/19/19at 11:11; Start 05/19/19 at 11:00; Stop 05/19/19 at 11:01; Status DC Insulin Human Lispro (HumaLOG) 2 units 1X ONCE SQ Last administered on 05/20/19at 17:50; Start 05/20/19 at 17:30; Stop 05/20/19 at 17:31; Status DC Aspirin (Ecotrin) 81 mg [id number] PO Last administered on 05/22/19at 08:19; Start 05/21/19 at 12:45; Stop 05/23/19 at 08:40; Status DC Milrinone Lactate/ Dextrose 100 ml @ 2.977 mls/ hr CONT PRN IV SEE I/O RECORD Last administered on 05/22/19at 20:30; Start 05/21/19 at 12:45 Furosemide (Lasix) 40 mg [id number] IVP Last administered on 05/23/19at 14:28; Start 05/21/19 at 14:00 Acetaminophen (Tylenol) 650 mg 1X PRN PRN PO PRE-TRANSFUSION; Start 05/22/19 at 06:30 Diphenhydramine HCl (Benadryl) 25 mg PRN 1X PRN PO PRE-TRANSFUSION; Start 05/22/19 at 06:30 Active Scripts Active Reported [e] Metolazone 5 Mg Tablet 5 Mg PO DAILY Clopidogrel (Clopidogrel Bisulfate) 75 Mg Tablet 1 Tab PO DAILY Bumetanide 1 Mg Tablet 1 Tab PO BID Tresiba (Insulin Degludec) 100 Unit/1 Ml Vial 20 Unit SQ HS Novolog (Insulin Aspart) 100 Unit/1 Ml Cartridge 8 Unit SQ TIDWMEALS Potassium Chloride 20 Meq Tablet.er 1 Tab PO DAILY 30 Days Finasteride 5 Mg Tablet 5 Mg PO DAILY Metoprolol Succinate ( Xl ) (Metoprolol Succinate) 25 Mg Tab.er.24h 25 Mg PO DAILY Isosorbide Mononitrate Er (Isosorbide Mononitrate) 30 Mg Tab.er.24h 30 Mg PO DAILY Atorvastatin Calcium 80 Mg Tablet 80 Mg PO DAILY Flomax (Tamsulosin Hcl) 0.4 Mg Cap.er.24h 0.4 Mg PO BID Vitals/I & O Vital Sign - Last 24 Hours 05/22/19 05/22/19 05/22/19 05/23/19 19:41 20:00 22:53 03:24 Temp 99.9 100.4 98.0 99.9 100.4 98.0 Pulse 109 108 98 Resp 16 16 16 B/P (MAP) 126/83 (97) 119/71 (87) 125/69 (87) Pulse Ox 98 93 93 O2 Delivery Nasal Cannula Nasal Cannula Nasal Cannula Nasal Cannula O2 Flow Rate 2.0 2.0 2.0 2.0 05/23/19 05/23/19 05/23/19 05/23/19 07:00 08:00 08:57 11:00 Temp 98.4 98.1 98.4 98.1 Pulse 99 94 98 Resp 20 16 B/P (MAP) 118/62 (80) 118/69 112/60 (77) Pulse Ox 93 90 O2 Delivery Nasal Cannula Nasal Cannula Room Air O2 Flow Rate 1.0 2.0 Intake and Output 05/22/19 05/22/19 05/23/19 15:00 23:00 07:00 Intake Total 400 ml Output Total 900 ml 1175 ml 900 ml Balance -900 ml -1175 ml -500 ml EDGARDO CROW MD May 23, 2019 16:00
[2019-05-23] MEDS: ATORVASTATIN CALCIUM 40 MG TABLET. PO SCH (21:33)
[2019-05-23] MEDS: INSULIN GLARGINE SYRINGE. SQ SCH (21:34)
[2019-05-24] MEDS: MILRINONE 20MG/100ML PREMIX 100 ML IV PRN (02:00)
[2019-05-24 02:07] VITALS: BP 123/69
[2019-05-24] MEDS: MEROPENEM 500 MG in IV NORMAL SALINE 50ML 50 ML IV SCH ×3 (05:24→23:05)
[2019-05-24 07:39] VITALS: BP 129/75
[2019-05-24] MEDS: POTASSIUM CHLORIDE 20 MEQ TABLET.ER. PO SCH (08:00)
[2019-05-24] MEDS: INSULIN LISPRO 300 UNITS/3 ML VIAL. SQ SCH ×5 (08:00→17:00)
--- NOTE | 2019-05-24 08:24 | PDOC ---
PROGRESS NOTES Subjective Subjective Patient seen and examined in room this morning, with daughter bedside. RN was used for [place] interpretation. The patient and the family has come up with a decision regarding surgery and would like to proceed with left below-knee amputation. The patient has no current complaints. I have reviewed the other consultants notes, taking note specifically cardiology, Dr. Callahan's recommendations for potential heart catheter or thoracentesis prior to surgery. His hgb is 7.7 today, he was transfused two days ago. Objective Objective Vital Signs Date Time Temp Pulse Resp B/P (MAP) Pulse Ox O2 Delivery O2 Flow Rate FiO2 05/24/19 07:39 98.2 90 16 129/75 (93) 93 Nasal Cannula 2.0 98.2 Intake and Output 05/24/19 07:00 Intake Total 0 ml Output Total 1475 ml Balance -1475 ml Intake Oral 0 ml Output Urine Total 1475 ml Physical Exam Physical Exam Awake and alert, no apparent distress Respirations nonlabored, O2 via nasal cannula Left foot dressing clean, dry, intact. Right foot dressing clean, dry, intact. Assessment Assessment Severe diabetic foot infection of the left lower extremity Osteomyelitis Anemia Plan Plan of Care Patient and family have agreed to proceed with left below-knee amputation. I discussed this in detail this morning with the patient and family present using RN for [place] interpretation. We discussed the risks of surgyer (infection, bleeding, cardiopulmonary complications), benefits of surgery, details of surgery, and expected postop course. We can get the pt scheduled for surgery today. I discussed case with Dr. Kaye; we discussed pt's pumonary improvement, but still risk of difficult extubation and cardiac risk. He is ok with us moving forward with surgery today. I discussed this with pt and daughter in detail, including possibility of going to ICU post operatively if difficult extubation. With Hgb 7.7 we will give one unit of blood prior to surgery. The patient verbalized understanding and agreed to proceed as recommended. Remain NPO for surgery today. Comment Review of Relevant I have reviewed the following items john (where applicable) has been applied. Labs Laboratory Tests Test 05/22/19 08:17 05/22/19 12:06 05/22/19 14:42 05/22/19 17:43 Glucose (Fingerstick) 162 mg/dL (70-99) 145 mg/dL (70-99) 165 mg/dL (70-99) White Blood Count 15.0 x10^3/uL (4.0-11.0) Red Blood Count 3.07 x10^6/uL (4.30-5.70) Hemoglobin 8.7 g/dL (13.0-17.5) Hematocrit 26.6 % (39.0-53.0) Mean Corpuscular Volume 87 fL (79-100) Mean Corpuscular Hemoglobin 28 pg (25-35) Mean Corpuscular Hemoglobin Concent 33 g/dL (31-37) Red Cell Distribution Width 16.7 % (11.5-14.5) Platelet Count 301 x10^3/uL (140-400) Neutrophils (%) (Auto) 88 % (31-73) Lymphocytes (%) (Auto) 4 % (24-48) Monocytes (%) (Auto) 6 % (0-9) Eosinophils (%) (Auto) 1 % (0-3) Basophils (%) (Auto) 0 % (0-3) Neutrophils # (Auto) 13.2 x10^3/uL (1.8-7.7) Lymphocytes # (Auto) 0.6 x10^3/uL (1.0-4.8) Monocytes # (Auto) 0.9 x10^3/uL (0.0-1.1) Eosinophils # (Auto) 0.1 x10^3/uL (0.0-0.7) Basophils # (Auto) 0.1 x10^3/uL (0.0-0.2) Test 05/22/19 20:59 05/23/19 05:30 05/23/19 07:41 05/23/19 11:59 Glucose (Fingerstick) 192 mg/dL (70-99) 102 mg/dL (70-99) 217 mg/dL (70-99) White Blood Count 13.4 x10^3/uL (4.0-11.0) Red Blood Count 2.71 x10^6/uL (4.30-5.70) Hemoglobin 7.7 g/dL (13.0-17.5) Hematocrit 23.5 % (39.0-53.0) Mean Corpuscular Volume 87 fL (79-100) Mean Corpuscular Hemoglobin 28 pg (25-35) Mean Corpuscular Hemoglobin Concent 33 g/dL (31-37) Red Cell Distribution Width 16.7 % (11.5-14.5) Platelet Count 271 x10^3/uL (140-400) Neutrophils (%) (Auto) 83 % (31-73) Lymphocytes (%) (Auto) 7 % (24-48) Monocytes (%) (Auto) 9 % (0-9) Eosinophils (%) (Auto) 1 % (0-3) Basophils (%) (Auto) 0 % (0-3) Neutrophils # (Auto) 11.1 x10^3/uL (1.8-7.7) Lymphocytes # (Auto) 0.9 x10^3/uL (1.0-4.8) Monocytes # (Auto) 1.3 x10^3/uL (0.0-1.1) Eosinophils # (Auto) 0.1 x10^3/uL (0.0-0.7) Basophils # (Auto) 0.0 x10^3/uL (0.0-0.2) Sodium Level 142 mmol/L (136-145) Potassium Level 3.5 mmol/L (3.5-5.1) Chloride Level 104 mmol/L (98-107) Carbon Dioxide Level 33 mmol/L (21-32) Anion Gap 5 (6-14) Blood Urea Nitrogen 62 mg/dL (8-26) Creatinine 1.8 mg/dL (0.7-1.3) Estimated GFR (Cockcroft-Gault) 37.5 Glucose Level 120 mg/dL (70-99) Calcium Level 7.8 mg/dL (8.5-10.1) Magnesium Level 2.2 mg/dL (1.8-2.4) KO-Tze-[id number]-Type Natriuretic Peptide > 42912 pg/mL (0-124) Test 05/23/19 17:39 05/23/19 20:55 05/24/19 07:43 Glucose (Fingerstick) 268 mg/dL (70-99) 229 mg/dL (70-99) 67 mg/dL (70-99) Laboratory Tests Test 05/23/19 11:59 05/23/19 17:39 05/23/19 20:55 05/24/19 07:43 Glucose (Fingerstick) 217 mg/dL (70-99) 268 mg/dL (70-99) 229 mg/dL (70-99) 67 mg/dL (70-99) Medications Current Medications Sodium Chloride 1,000 ml @ 75 mls/hr [id number] IV Last administered on 05/18/19at 21:44; Start 05/17/19 at 12:00; Stop 05/19/19 at 15:49; Status DC Bumetanide (Bumex) 1 mg BID94 PO Last administered on 05/21/19at 12:07; Start 05/17/19 at 16:00; Stop 05/21/19 at 12:44; Status DC Clopidogrel Bisulfate (Plavix) 75 mg DAILY PO Last administered on 05/23/19 08:57; Start 05/18/19 at 09:00 Finasteride (Proscar) 5 mg DAILY PO Last administered on 05/23/19 08:54; Start 05/18/19 at 09:00 Isosorbide Mononitrate (Imdur) 30 mg DAILY PO Last administered on 05/21/19at 12:07; Start 05/18/19 at 09:00; Stop 05/21/19 at 12:44; Status DC Metoprolol Succinate (Toprol Xl) 25 mg DAILY PO Last administered on 05/23/19 08:57; Start 05/18/19 at 09:00 Tamsulosin HCl (Flomax) 0.4 mg BID PO Last administered on 05/23/19 21:33; Start 05/17/19 at 21:00 Atorvastatin Calcium (Lipitor) 80 mg QHS PO Last administered on 05/23/19 21:33; Start 05/17/19 at 21:00 Insulin Human Lispro (HumaLOG) 8 units TIDWMEALS SQ Last administered on 05/23/19 18:17; Start 05/17/19 at 12:30 Insulin Glargine (Lantus Syringe) 20 unit QHS SQ ; Start 05/17/19 at 21:00; S top 05/17/19 at 12:26; Status DC Metolazone (Zaroxolyn) 5 mg DAILY PO Last administered on 05/21/19at 12:06; Start 05/18/19 at 09:00; Stop 05/21/19 at 12:44; Status DC Potassium Chloride (Klor-Con) 20 meq DAILYWBKFT PO Last administered on 05/23/19at 08:56; Start 05/18/19 at 08:00 Insulin Glargine (Lantus Syringe) 20 unit QHS SQ Last administered on 05/23/19at 21:34; Start 05/17/19 at 21:00 Sodium Hypochlorite (Dakin'S 1/4 Strength) 1 yg DAILY TP Last administered on 05/18/19at 12:40; Start 05/17/19 at 13:30; Stop 05/21/19 at 12:37; Status DC Meropenem 500 mg/ Sodium Chloride 50 ml @ 100 mls/hr Q8HRS IV Last administer ed on 05/24/19at 05:24; Start 05/17/19 at 14:00 Linezolid (Zyvox) 600 mg BID PO Last administered on 05/19/19at 08:19; Start 1 07/17/18 at 14:00; Stop 05/19/19 at 09:36; Status DC Lactobacillus Rhamnosus (Culturelle) 1 cap BID PO Last administered on at 21:33; Start 05/18/19 at 21:00 Daptomycin 320 mg/ Sodium Chloride 50 ml @ 100 mls/hr Q24H IV Last administered on 05/23/19at 10:08; Start 05/19/19 at 09:45 Lidocaine HCl (Buffered Lidocaine 1%) 3 ml STK-MED ONCE .ROUTE ; Start 05/19/19 at 10:05; Stop 05/19/19 at 10:05; Status DC Multivitamins (Thera M Plus) 1 tab DAILY PO Last administered on 05/23/19at 08:57; Start 05/19/19 at 11:00 Lidocaine HCl (Buffered Lidocaine 1%) 3 ml 1X ONCE INJ Last administered on 05/19/19at 11:11; Start 05/19/19 at 11:00; Stop 05/19/19 at 11:01; Status DC Insulin Human Lispro (HumaLOG) 2 units 1X ONCE SQ Last administered on 9at 17:50; Start 05/20/19 at 17:30; Stop 05/20/19 at 17:31; Status DC Aspirin (Ecotrin) 81 mg DAILYWBKFT PO Last administered on 05/22/19at 08:19; Start 05/21/19 at 12:45; Stop 05/23/19 at 08:40; Status DC Milrinone Lactate/ Dextrose 100 ml @ 2.977 mls/ hr CONT PRN IV SEE I/O RECORD Last administered on 05/24/19at 02:00; Start 05/21/19 at 12:45 Furosemide (Lasix) 40 mg BID92 IVP Last administered on 05/23/19at 14:28; Start 05/21/19 at 14:00 Acetaminophen (Tylenol) 650 mg 1X PRN PRN PO PRE-TRANSFUSION; Start 05/22/19 at 06:30 Diphenhydramine HCl (Benadryl) 25 mg PRN 1X PRN PO PRE-TRANSFUSION; Start 05/22/19 at 06:30 Active Scripts Active Reported [e] Metolazone 5 Mg Tablet 5 Mg PO DAILY Clopidogrel (Clopidogrel Bisulfate) 75 Mg Tablet 1 Tab PO DAILY Bumetanide 1 Mg Tablet 1 Tab PO BID Tresiba (Insulin Degludec) 100 Unit/1 Ml Vial 20 Unit SQ HS Novolog (Insulin Aspart) 100 Unit/1 Ml Cartridge 8 Unit SQ TIDWMEALS Potassium Chloride 20 Meq Tablet.er 1 Tab PO DAILY 30 Days Finasteride 5 Mg Tablet 5 Mg PO DAILY Metoprolol Succinate ( Xl ) (Metoprolol Succinate) 25 Mg Tab.er.24h 25 Mg PO DA LAURA Isosorbide Mononitrate Er (Isosorbide Mononitrate) 30 Mg Tab.er.24h 30 Mg PO DAILY Atorvastatin Calcium 80 Mg Tablet 80 Mg PO DAILY Flomax (Tamsulosin Hcl) 0.4 Mg Cap.er.24h 0.4 Mg PO BID Vitals/I & O Vital Sign - Last 24 Hours 05/23/19 05/23/19 05/23/19 05/23/19 08:57 11:00 11:21 14:30 Temp 98.1 98.1 Pulse 94 98 98 98 Resp 16 B/P (MAP) 118/69 112/60 (77) 112/60 (77) 129/63 (85) Pulse Ox 90 O2 Delivery Room Air 05/23/19 05/23/19 05/23/19 05/23/19 15:00 19:20 20:00 23:27 Temp 98.0 97.7 100.3 98.0 97.7 100.3 Pulse 97 109 104 Resp 18 16 16 B/P (MAP) 132/68 (89) 136/73 (94) 124/71 (88) Pulse Ox 98 96 94 O2 Delivery Room Air Room Air Nasal Cannula Nasal Cannula O2 Flow Rate 2.0 2.0 05/24/19 05/24/19 02:07 07:39 Temp 100.0 98.2 100.0 98.2 Pulse 91 90 Resp 16 16 B/P (MAP) 123/69 (87) 129/75 (93) Pulse Ox 96 93 O2 Delivery Nasal Cannula Nasal Cannula O2 Flow Rate 2.0 2.0 Intake and Output 05/23/19 05/23/19 05/24/19 15:00 23:00 07:00 Intake Total 0 ml Output Total 550 ml 175 ml 750 ml Balance -550 ml -175 ml -750 ml DAYANA WINTER May 24, 2019 08:24
[2019-05-24] MEDS ORDERED: IV RINGERS,LACTATED 1000ML 1,000 ML IV SCH (08:28)
[2019-05-24] MEDS ORDERED: PROCHLORPERAZINE 10 MG/2 ML VIAL. IV PRN (08:30)
[2019-05-24] MEDS ORDERED: HYDROmorphone 2 MG/ML VIAL IV PRN (08:30)
[2019-05-24] MEDS ORDERED: ONDANSETRON PF 4 MG/2 ML VIAL. IV PRN (08:30)
[2019-05-24] MEDS ORDERED: fentaNYL PF VIAL 100 MCG/2 ML VIAL IV PRN ×2 (08:30)
[2019-05-24] MEDS: LACTOBACILLUS RHAMNOSUS GG 1 CAPSULE. PO SCH ×2 (09:00→20:40)
[2019-05-24] MEDS: FUROSEMIDE 40 MG/4 ML VIAL. IVP SCH ×2 (09:00→20:37)
[2019-05-24] MEDS: MULTIVITAMIN with MINERAL TABLET. PO SCH (09:00)
[2019-05-24] MEDS ORDERED: ACETAMINOPHEN 500 MG TABLET PO PRN (09:15)
[2019-05-24] MEDS ORDERED: ONDANSETRON PF 4 MG/2 ML VIAL. IVP PRN (09:15)
[2019-05-24] MEDS ORDERED: ACETAMINOPHEN/CODEINE 300/30MG TABLET. PO PRN (09:15)
[2019-05-24] MEDS ORDERED: fentaNYL PF VIAL 100 MCG/2 ML VIAL IVP PRN (09:15)
[2019-05-24] MEDS: DEXTROSE 50% 25 GM / 50ML DISP.SYRIN. IV PRN ×2 (09:32→11:59)
[2019-05-24] MEDS: TAMSULOSIN 0.4 MG CAP.ER.24H. PO SCH ×2 (09:33→20:40)
[2019-05-24] MEDS: METOPROLOL SUCC 24HR ER 25 MG TAB.ER.24H. PO SCH (09:41)
[2019-05-24] MEDS: DAPTOmycin (GENERIC) IVPB 320 MG in IV NORMAL SALINE 50ML 50 ML IV SCH (09:42)
--- NOTE | 2019-05-24 10:08 | PDOC ---
Infectious Disease Note Subjective: Subjective Comfortable, denies pain Fever Tmax 100.3 awaiting surgery later today d/w daughter at bedside no new concerns Vital Signs: Vital Signs Vital Signs Date Time Temp Pulse Resp B/P (MAP) Pulse Ox O2 Delivery O2 Flow Rate FiO2 05/24/19 09:41 92 133/67 05/24/19 07:39 98.2 16 93 Nasal Cannula 2.0 98.2 Physical Exam: PHYSICAL EXAM GENERAL: Propped up in bed, alert, NAD HEENT: Oral cavity clear, no lesions NECK: Supple. LUNGS: Clear. HEART: S1, S2 regular. ABDOMEN: Soft EXTREMITIES: Foot wounds bandaged SKIN: without rash NEUROLOGIC: Alert, responds appropriately RUE-PICC (05/19) Medications: Inpatient Meds: Current Medications Medications (Trade) Dose Ordered Sig/Rose Start Time Stop Time Status Last Admin Dose Admin Acetaminophen (Tylenol) 500 mg PRN Q6HRS PRN 05/24/19 09:15 Acetaminophen/ Codeine Phosphate (Tylenol #3) 1 tab PRN Q6HRS PRN 05/24/19 09:15 Aspirin (Ecotrin) 81 mg DAILYWBKFT 05/21/19 12:45 05/23/19 08:40 DC 05/22/19 08:19 81 MG Atorvastatin Calcium (Lipitor) 80 mg QHS 05/17/19 21:00 05/23/19 21:33 80 MG Bumetanide (Bumex) 1 mg BID94 05/17/19 16:00 05/21/19 12:44 DC 05/21/19 12:07 1 MG Clopidogrel Bisulfate (Plavix) 75 mg DAILY 05/18/19 09:00 05/23/19 08:57 75 MG Daptomycin 320 mg/ Sodium Chloride 50 ml @ 100 mls/hr Q24H 05/19/19 09:45 05/24/19 09:42 100 MLS/HR Dextrose (Dextrose 50%-Water Syringe) 12.5 gm PRN Q15MIN PRN 05/24/19 09:15 05/24/19 09:32 12.5 GM Diphenhydramine HCl (Benadryl) 25 mg PRN 1X PRN 05/22/19 06:30 Fentanyl Citrate (Fentanyl 2ml Vial) 50 mcg PRN Q2HR PRN 05/24/19 09:15 Finasteride (Proscar) 5 mg DAILY 05/18/19 09:00 05/23/19 08:54 5 MG Furosemide (Lasix) 40 mg BID92 05/21/19 14:00 05/23/19 14:28 40 MG Hydromorphone HCl (Dilaudid) 0.5 mg PRN Q10MIN PRN 05/24/19 08:30 05/25/19 08:29 Insulin Glargine (Lantus Syringe) 20 unit QHS 05/17/19 21:00 05/23/19 21:34 20 UNIT Insulin Human Lispro (HumaLOG) 0-9 UNITS TIDWMEALS 05/24/19 12:00 Isosorbide Mononitrate (Imdur) 30 mg DAILY 05/18/19 09:00 05/21/19 12:44 DC 05/21/19 12:07 30 MG Lactobacillus Rhamnosus (Culturelle) 1 cap BID 05/18/19 21:00 05/23/19 21:33 1 CAP Lidocaine HCl (Buffered Lidocaine 1%) 3 ml 1X ONCE 05/19/19 11:00 05/19/19 11:01 DC 05/19/19 11:11 5 ML Linezolid (Zyvox) 600 mg BID 05/17/19 14:00 05/19/19 09:36 DC 05/19/19 08:19 600 MG Meropenem 500 mg/ Sodium Chloride 50 ml @ 100 mls/hr Q8HRS 05/17/19 14:00 05/24/19 05:24 100 MLS/HR Metolazone (Zaroxolyn) 5 mg DAILY 05/18/19 09:00 05/21/19 12:44 DC 05/21/19 12:06 5 MG Metoprolol Succinate (Toprol Xl) 25 mg DAILY 05/18/19 09:00 05/24/19 09:41 25 MG Milrinone Lactate/ Dextrose 100 ml @ 2.977 mls/ hr CONT PRN 05/21/19 12:45 05/24/19 02:00 2.977 MLS/HR Morphine Sulfate (Morphine Sulfate) 1 mg PRN Q10MIN PRN 05/24/19 08:30 05/25/19 08:29 Multivitamins (Thera M Plus) 1 tab DAILY 05/19/19 11:00 05/23/19 08:57 1 TAB Ondansetron HCl (Zofran) 4 mg PRN Q6HRS PRN 05/24/19 09:15 Potassium Chloride (Klor-Con) 20 meq DAILYWBKFT 05/18/19 08:00 05/23/19 08:56 20 MEQ Prochlorperazine Edisylate (Compazine) 5 mg PACU PRN PRN 05/24/19 08:30 05/25/19 08:29 Ringer's Solution 1,000 ml @ 30 mls/hr Q24H 05/24/19 08:28 05/24/19 20:27 Sodium Hypochlorite (Dakin'S 1/4 Strength) 1 yg DAILY 05/17/19 13:30 05/21/19 12:37 DC 05/18/19 12:40 1 YG Sodium Chloride 1,000 ml @ 75 mls/hr [id number] 05/17/19 12:00 05/19/19 15:49 DC 05/18/19 21:44 75 MLS/HR Tamsulosin HCl (Flomax) 0.4 mg BID 05/17/19 21:00 05/24/19 09:33 0.4 MG Labs: Lab Laboratory Tests Test 05/23/19 11:59 05/23/19 17:39 05/23/19 20:55 05/24/19 07:43 Glucose (Fingerstick) 217 mg/dL (70-99) 268 mg/dL (70-99) 229 mg/dL (70-99) 67 mg/dL (70-99) Test 05/24/19 09:50 Glucose (Fingerstick) 109 mg/dL (70-99) Objective: Assessment: Fever Left foot diabetic foot infection to tendon an bone Vascular insufficiency Diabetes. Hypertension. Coronary artery disease. Ischemic cardiomyopathy h/o ESBL Plan: Plan of Care Awaiting amputation today cont Dapto and meropenem Monitor for abx toxicities Probiotics Local wound care as directed D/w daughter at bedside D/w nursing ANDREAS GIL MD May 24, 2019 10:08
--- NOTE | 2019-05-24 10:09 | PDOC ---
SUBJECTIVE ROS Scheduled for BKA today . No complaints currently OBJECTIVE Vital Signs Vital Signs Date Time Temp Pulse Resp B/P (MAP) Pulse Ox O2 Delivery O2 Flow Rate FiO2 05/24/19 09:41 92 133/67 05/24/19 07:39 98.2 16 93 Nasal Cannula 2.0 98.2 I & 0 Intake and Output 05/24/19 07:00 Intake Total 0 ml Output Total 1475 ml Balance -1475 ml Intake Oral 0 ml Output Urine Total 1475 ml PHYSICAL EXAM Physical Exam GENERAL: alert, NAD HEENT: Oral cavity moist NECK: Supple. LUNGS: Clear. HEART: S1, S2 regular. 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 Current FLuid and E-lyte status does not necessitate emergent need for Dialysis. Proteinuria: Nonnephrotic range Anemia: Multiple PRBC, per daughter recently PRBC x3 when he was visiting [place] Never had colonoscopy, Tsat low ,Recommend further steinberg for anemia including GI consult Will order SPEP, K/L as well HTN: Defer to cardiology to optimize from cardiomyopathy standpoint Cardiomyopathy with EF of 25%: Patient has small pleural effusions and he remains on inotropes at this time. Diabetes: deferred to primary team Severe hypoalbuminemia: Suspect early due to ongoing infection and once. Protein creatinine ratio is only 1.4 g Dw Daughter and RN COMMENT/RELEVANT DATA Meds Current Medications Medications (Trade) Dose Ordered Sig/Rose Start Time Stop Time Status Last Admin Dose Admin Acetaminophen (Tylenol) 500 mg PRN Q6HRS PRN 05/24/19 09:15 Acetaminophen/ Codeine Phosphate (Tylenol #3) 1 tab PRN Q6HRS PRN 05/24/19 09:15 Aspirin (Ecotrin) 81 mg DAILYWBKFT 05/21/19 12:45 05/23/19 08:40 DC 05/22/19 08:19 81 MG Atorvastatin Calcium (Lipitor) 80 mg QHS 05/17/19 21:00 05/23/19 21:33 80 MG Bumetanide (Bumex) 1 mg [id number] 05/17/19 16:00 05/21/19 12:44 DC 05/21/19 12:07 1 MG Clopidogrel Bisulfate (Plavix) 75 mg DAILY 05/18/19 09:00 05/23/19 08:57 75 MG Daptomycin 320 mg/ Sodium Chloride 50 ml @ 100 mls/hr Q24H 05/19/19 09:45 05/24/19 09:42 100 MLS/HR Dextrose (Dextrose 50%-Water Syringe) 12.5 gm PRN Q15MIN PRN 05/24/19 09:15 05/24/19 09:32 12.5 GM Diphenhydramine HCl (Benadryl) 25 mg PRN 1X PRN 05/22/19 06:30 Fentanyl Citrate (Fentanyl 2ml Vial) 50 mcg PRN Q2HR PRN 05/24/19 09:15 Finasteride (Proscar) 5 mg DAILY 05/18/19 09:00 05/23/19 08:54 5 MG Furosemide (Lasix) 40 mg BID92 05/21/19 14:00 05/23/19 14:28 40 MG Hydromorphone HCl (Dilaudid) 0.5 mg PRN Q10MIN PRN 05/24/19 08:30 05/25/19 08:29 Insulin Glargine (Lantus Syringe) 20 unit QHS 05/17/19 21:00 05/23/19 21:34 20 UNIT Insulin Human Lispro (HumaLOG) 0-9 UNITS TIDWMEALS 05/24/19 12:00 Isosorbide Mononitrate (Imdur) 30 mg DAILY 05/18/19 09:00 05/21/19 12:44 DC 05/21/19 12:07 30 MG Lactobacillus Rhamnosus (Culturelle) 1 cap BID 05/18/19 21:00 05/23/19 21:33 1 CAP Lidocaine HCl (Buffered Lidocaine 1%) 3 ml 1X ONCE 05/19/19 11:00 05/19/19 11:01 DC 05/19/19 11:11 5 ML Linezolid (Zyvox) 600 mg BID 05/17/19 14:00 05/19/19 09:36 DC 05/19/19 08:19 600 MG Meropenem 500 mg/ Sodium Chloride 50 ml @ 100 mls/hr Q8HRS 05/17/19 14:00 05/24/19 05:24 100 MLS/HR Metolazone (Zaroxolyn) 5 mg DAILY 05/18/19 09:00 05/21/19 12:44 DC 05/21/19 12:06 5 MG Metoprolol Succinate (Toprol Xl) 25 mg DAILY 05/18/19 09:00 05/24/19 09:41 25 MG Milrinone Lactate/ Dextrose 100 ml @ 2.977 mls/ hr CONT PRN 05/21/19 12:45 05/24/19 02:00 2.977 MLS/HR Morphine Sulfate (Morphine Sulfate) 1 mg PRN Q10MIN PRN 05/24/19 08:30 05/25/19 08:29 Multivitamins (Thera M Plus) 1 tab DAILY 05/19/19 11:00 05/23/19 08:57 1 TAB Ondansetron HCl (Zofran) 4 mg PRN Q6HRS PRN 05/24/19 09:15 Potassium Chloride (Klor-Con) 20 meq [id number] 05/18/19 08:00 05/23/19 08:56 20 MEQ Prochlorperazine Edisylate (Compazine) 5 mg PACU PRN PRN 05/24/19 08:30 05/25/19 08:29 Ringer's Solution 1,000 ml @ 30 mls/hr Q24H 05/24/19 08:28 05/24/19 20:27 Sodium Hypochlorite (Dakin'S 1/4 Strength) 1 yg DAILY 05/17/19 13:30 05/21/19 12:37 DC 05/18/19 12:40 1 YG Sodium Chloride 1,000 ml @ 75 mls/hr [id number] 05/17/19 12:00 05/19/19 15:49 DC 05/18/19 21:44 75 MLS/HR Tamsulosin HCl (Flomax) 0.4 mg BID 05/17/19 21:00 05/24/19 09:33 0.4 MG Lab Laboratory Tests Test 05/23/19 11:59 05/23/19 17:39 05/23/19 20:55 05/24/19 07:43 Glucose (Fingerstick) 217 mg/dL (70-99) 268 mg/dL (70-99) 229 mg/dL (70-99) 67 mg/dL (70-99) Test 05/24/19 09:50 Glucose (Fingerstick) 109 mg/dL (70-99) Results All relevant outside records, renal labs, imaging studies, telemetry/EKG's were reviewed. JULIANA DENSON MD May 24, 2019 10:09
[2019-05-24 10:20] LABS: CALCIUM 7.8 mg/dL (8.5-10.1); CREATININE 1.7 mg/dL (0.7-1.3)
[2019-05-24 10:21] LABS: POTASSIUM 2.9 mmol/L (3.5-5.1)
[2019-05-24 10:43] VITALS: BP 132/71
--- NOTE | 2019-05-24 10:45 | PDOC ---
PROGRESS NOTES Chief Complaint Chief Complaint A/P: bilateral diabetic foot wounds coronary artery disease Congestive heart failure RECENT ECHO Left ventricle systolic function is moderate to severely impaired. The Ejection Fraction is 25-30%. Doppler and Color Flow revealed mild tricuspid regurgitation. The PA pressure was estimated at 27 mmHg. Hypertension Diabetes Urinary retention Diabetic foot infection with a recent surgery done in [place] Subtle erosive change cortical thinning at the medial most margin of the metatarsal shaft portion may be seen with osteomyelitis. PVD SEVERE CKD SEVERE PROTEIN-CALORIC MALNUTRITION Bilateral pleural effusions. Cholelithiasis. Small amount of ascites. No hydronephrosis in the kidneys. History of Present Illness History of Present Illness lives at home with family [employer] but family translates for me Agreeable to BKA today] NO need for cardiac cath or thoracentesis pb now Interval CXR: Impression: 1. There is again small left pleural effusion and also persistent bibasilar airspace opacity although somewhat decreased interstitial and airspace opacity at the right lung base and also somewhat decreased perihilar opacity likely due to decreased edema. Constellation of findings may be seen with left ventricular failure. K 2.9 , npo for BKA PLAN: kcl 10 IV x 4 - has TLC BKA later Check post op labs and PT OT Follow cards recs HYpoglycmic tis AM - bec NPO? (BS 60s) - i kept current insulin regimen for now ( not too high) Vitals Vitals Vital Signs Date Time Temp Pulse Resp B/P (MAP) Pulse Ox O2 Delivery O2 Flow Rate FiO2 05/24/19 09:41 92 133/67 05/24/19 07:39 98.2 16 93 Nasal Cannula 2.0 98.2 Physical Exam Physical Exam GENERAL: Propped up in bed, alert, NAD HEENT: Oral cavity clear, no lesions NECK: Supple. LUNGS: Clear. HEART: S1, S2 regular. ABDOMEN: Soft EXTREMITIES: Foot wounds bandaged SKIN: without rash NEUROLOGIC: Alert, responds appropriately RUE-PICC (05/19) General: Alert, Oriented X3, No acute distress Heart: Regular rate, Normal S1, Normal S2 Lungs: Clear, Other (dependent rales) Abdomen: Normal bowel sounds, Soft, No tenderness Extremities: No clubbing, No cyanosis, No edema, Other (extensive tissue loss of the left foot with exposed midfoot bones and tendinous structure, there is surrounding granulation tissue, there is no evidence of purulent drainage, there is no malodor, there is no evidence of deep space abscess, significant portion of the plantar surface of the foot has been excised, there is a superficial wound isolated to the subcutaneous tissue on the dorsal surface of the right foot which is clean and granulating) Skin: Other (same as above) Labs LABS Laboratory Tests Test 05/23/19 11:59 05/23/19 17:39 05/23/19 20:55 05/24/19 07:43 Glucose (Fingerstick) 217 mg/dL (70-99) 268 mg/dL (70-99) 229 mg/dL (70-99) 67 mg/dL (70-99) Test 05/24/19 09:50 Sodium Level 142 mmol/L (136-145) Potassium Level 2.9 mmol/L (3.5-5.1) Chloride Level 102 mmol/L (98-107) Carbon Dioxide Level 34 mmol/L (21-32) Anion Gap 6 (6-14) Blood Urea Nitrogen 60 mg/dL (8-26) Creatinine 1.7 mg/dL (0.7-1.3) Estimated GFR (Cockcroft-Gault) 40.0 Glucose Level 140 mg/dL (70-99) Glucose (Fingerstick) 109 mg/dL (70-99) Calcium Level 7.8 mg/dL (8.5-10.1) Review of Systems Review of Systems speaks spansih, neg ros 14 pt Comment Review of Relevant I have reviewed the following items john (where applicable) has been applied. Labs Laboratory Tests Test 05/22/19 12:06 05/22/19 14:42 05/22/19 17:43 05/22/19 20:59 Glucose (Fingerstick) 145 mg/dL (70-99) 165 mg/dL (70-99) 192 mg/dL (70-99) White Blood Count 15.0 x10^3/uL (4.0-11.0) Red Blood Count 3.07 x10^6/uL (4.30-5.70) Hemoglobin 8.7 g/dL (13.0-17.5) Hematocrit 26.6 % (39.0-53.0) Mean Corpuscular Volume 87 fL (79-100) Mean Corpuscular Hemoglobin 28 pg (25-35) Mean Corpuscular Hemoglobin Concent 33 g/dL (31-37) Red Cell Distribution Width 16.7 % (11.5-14.5) Platelet Count 301 x10^3/uL (140-400) Neutrophils (%) (Auto) 88 % (31-73) Lymphocytes (%) (Auto) 4 % (24-48) Monocytes (%) (Auto) 6 % (0-9) Eosinophils (%) (Auto) 1 % (0-3) Basophils (%) (Auto) 0 % (0-3) Neutrophils # (Auto) 13.2 x10^3/uL (1.8-7.7) Lymphocytes # (Auto) 0.6 x10^3/uL (1.0-4.8) Monocytes # (Auto) 0.9 x10^3/uL (0.0-1.1) Eosinophils # (Auto) 0.1 x10^3/uL (0.0-0.7) Basophils # (Auto) 0.1 x10^3/uL (0.0-0.2) Test 05/23/19 05:30 05/23/19 07:41 05/23/19 11:59 05/23/19 17:39 White Blood Count 13.4 x10^3/uL (4.0-11.0) Red Blood Count 2.71 x10^6/uL (4.30-5.70) Hemoglobin 7.7 g/dL (13.0-17.5) Hematocrit 23.5 % (39.0-53.0) Mean Corpuscular Volume 87 fL (79-100) Mean Corpuscular Hemoglobin 28 pg (25-35) Mean Corpuscular Hemoglobin Concent 33 g/dL (31-37) Red Cell Distribution Width 16.7 % (11.5-14.5) Platelet Count 271 x10^3/uL (140-400) Neutrophils (%) (Auto) 83 % (31-73) Lymphocytes (%) (Auto) 7 % (24-48) Monocytes (%) (Auto) 9 % (0-9) Eosinophils (%) (Auto) 1 % (0-3) Basophils (%) (Auto) 0 % (0-3) Neutrophils # (Auto) 11.1 x10^3/uL (1.8-7.7) Lymphocytes # (Auto) 0.9 x10^3/uL (1.0-4.8) Monocytes # (Auto) 1.3 x10^3/uL (0.0-1.1) Eosinophils # (Auto) 0.1 x10^3/uL (0.0-0.7) Basophils # (Auto) 0.0 x10^3/uL (0.0-0.2) Sodium Level 142 mmol/L (136-145) Potassium Level 3.5 mmol/L (3.5-5.1) Chloride Level 104 mmol/L (98-107) Carbon Dioxide Level 33 mmol/L (21-32) Anion Gap 5 (6-14) Blood Urea Nitrogen 62 mg/dL (8-26) Creatinine 1.8 mg/dL (0.7-1.3) Estimated GFR (Cockcroft-Gault) 37.5 Glucose Level 120 mg/dL (70-99) Calcium Level 7.8 mg/dL (8.5-10.1) Magnesium Level 2.2 mg/dL (1.8-2.4) [id number]-[id number]-Type Natriuretic Peptide > 94615 pg/mL (0-124) Glucose (Fingerstick) 102 mg/dL (70-99) 217 mg/dL (70-99) 268 mg/dL (70-99) Test 05/23/19 20:55 05/24/19 07:43 05/24/19 09:50 Glucose (Fingerstick) 229 mg/dL (70-99) 67 mg/dL (70-99) 109 mg/dL (70-99) Sodium Level 142 mmol/L (136-145) Potassium Level 2.9 mmol/L (3.5-5.1) Chloride Level 102 mmol/L (98-107) Carbon Dioxide Level 34 mmol/L (21-32) Anion Gap 6 (6-14) Blood Urea Nitrogen 60 mg/dL (8-26) Creatinine 1.7 mg/dL (0.7-1.3) Estimated GFR (Cockcroft-Gault) 40.0 Glucose Level 140 mg/dL (70-99) Calcium Level 7.8 mg/dL (8.5-10.1) Laboratory Tests Test 05/23/19 11:59 05/23/19 17:39 05/23/19 20:55 05/24/19 07:43 Glucose (Fingerstick) 217 mg/dL (70-99) 268 mg/dL (70-99) 229 mg/dL (70-99) 67 mg/dL (70-99) Test 05/24/19 09:50 Sodium Level 142 mmol/L (136-145) Potassium Level 2.9 mmol/L (3.5-5.1) Chloride Level 102 mmol/L (98-107) Carbon Dioxide Level 34 mmol/L (21-32) Anion Gap 6 (6-14) Blood Urea Nitrogen 60 mg/dL (8-26) Creatinine 1.7 mg/dL (0.7-1.3) Estimated GFR (Cockcroft-Gault) 40.0 Glucose Level 140 mg/dL (70-99) Glucose (Fingerstick) 109 mg/dL (70-99) Calcium Level 7.8 mg/dL (8.5-10.1) Medications Current Medications Sodium Chloride 1,000 ml @ 75 mls/hr [id number] IV Last administered on 05/18/19at 21:44; Start 05/17/19 at 12:00; Stop 05/19/19 at 15:49; Status DC Bumetanide (Bumex) 1 mg [id number] PO Last administered on 05/21/19at 12:07; Start 05/17/19 at 16:00; Stop 05/21/19 at 12:44; Status DC Clopidogrel Bisulfate (Plavix) 75 mg DAILY PO Last administered on 05/23/19at 08:57; Start 05/18/19 at 09:00 Finasteride (Proscar) 5 mg DAILY PO Last administered on 05/23/19at 08:54; Start 05/18/19 at 09:00 Isosorbide Mononitrate (Imdur) 30 mg DAILY PO Last administered on 05/21/19at 12:07; Start 05/18/19 at 09:00; Stop 05/21/19 at 12:44; Status DC Metoprolol Succinate (Toprol Xl) 25 mg DAILY PO Last administered on 05/24/19at 09:41; Start 05/18/19 at 09:00 Tamsulosin HCl (Flomax) 0.4 mg BID PO Last administered on 05/24/19 09:33; Start 05/17/19 at 21:00 Atorvastatin Calcium (Lipitor) 80 mg QHS PO Last administered on 05/23/19at 21:33; Start 05/17/19 at 21:00 Insulin Human Lispro (HumaLOG) 8 units TIDWMEALS SQ Last administered on 05/23/19at 18:17; Start 05/17/19 at 12:30 Insulin Glargine (Lantus Syringe) 20 unit QHS SQ ; Start 05/17/19 at 21:00; Stop 05/17/19 at 12:26; Status DC Metolazone (Zaroxolyn) 5 mg DAILY PO Last administered on 05/21/19at 12:06; Start 05/18/19 at 09:00; Stop 05/21/19 at 12:44; Status DC Potassium Chloride (Klor-Con) 20 meq DAILYWBKFT PO Last administered on 05/23/19at 08:56; Start 05/18/19 at 08:00 Insulin Glargine (Lantus Syringe) 20 unit QHS SQ Last administered on 05/23/19at 21:34; Start 05/17/19 at 21:00 Sodium Hypochlorite (Dakin'S 1/4 Strength) 1 yg DAILY TP Last administered on 05/18/19at 12:40; Start 05/17/19 at 13:30; Stop 05/21/19 at 12:37; Status DC Meropenem 500 mg/ Sodium Chloride 50 ml @ 100 mls/hr Q8HRS IV Last administered on 05/24/19at 05:24; Start 05/17/19 at 14:00 Linezolid (Zyvox) 600 mg BID PO Last administered on 05/19/19at 08:19; Start 05/17/19 at 14:00; Stop 05/19/19 at 09:36; Status DC Lactobacillus Rhamnosus (Culturelle) 1 cap BID PO Last administered on 05/23/19 21:33; Start 05/18/19 at 21:00 Daptomycin 320 mg/ Sodium Chloride 50 ml @ 100 mls/hr Q24H IV Last administered on 05/24/19at 09:42; Start 05/19/19 at 09:45 Lidocaine HCl (Buffered Lidocaine 1%) 3 ml STK-MED ONCE .ROUTE ; Start 05/19/19 at 10:05; Stop 05/19/19 at 10:05; Status DC Multivitamins (Thera M Plus) 1 tab DAILY PO Last administered on 05/23/19at 08:57; Start 05/19/19 at 11:00 Lidocaine HCl (Buffered Lidocaine 1%) 3 ml 1X ONCE INJ Last administered on 05/19/19at 11:11; Start 05/19/19 at 11:00; Stop 05/19/19 at 11:01; Status DC Insulin Human Lispro (HumaLOG) 2 units 1X ONCE SQ Last administered on 05/20/19at 17:50; Start 05/20/19 at 17:30; Stop 05/20/19 at 17:31; Status DC Aspirin (Ecotrin) 81 mg DAILYWBKFT PO Last administered on 05/22/19at 08:19; Start 05/21/19 at 12:45; Stop 05/23/19 at 08:40; Status DC Milrinone Lactate/ Dextrose 100 ml @ 2.977 mls/ hr CONT PRN IV SEE I/O RECORD Last administered on 05/24/19at 02:00; Start 05/21/19 at 12:45 Furosemide (Lasix) 40 mg BID92 IVP Last administered on 05/23/19at 14:28; Start 05/21/19 at 14:00 Acetaminophen (Tylenol) 650 mg 1X PRN PRN PO PRE-TRANSFUSION; Start 05/22/19 at 06:30 Diphenhydramine HCl (Benadryl) 25 mg PRN 1X PRN PO PRE-TRANSFUSION; Start 05/22/19 at 06:30 Ondansetron HCl (Zofran) 4 mg PRN Q6HRS PRN IV NAUSEA/VOMITING; Start 05/24/19 at 08:30; Stop 05/25/19 at 08:29 Fentanyl Citrate (Fentanyl 2ml Vial) 25 mcg PRN Q5MIN PRN IV MILD PAIN 1-3; Start 05/24/19 at 08:30; Stop 05/25/19 at 08:29 Fentanyl Citrate (Fentanyl 2ml Vial) 50 mcg PRN Q5MIN PRN IV MODERATE TO SEVERE PAIN; Start 05/24/19 at 08:30; Stop 05/25/19 at 08:29 Morphine Sulfate (Morphine Sulfate) 1 mg PRN Q10MIN PRN IV SEVERE PAIN 7-10; Start 05/24/19 at 08:30; Stop 05/25/19 at 08:29 Ringer's Solution 1,000 ml @ 30 mls/hr Q24H IV ; Start 05/24/19 at 08:28; Stop 05/24/19 at 20:27 Hydromorphone HCl (Dilaudid) 0.5 mg PRN Q10MIN PRN IV SEV PAIN, Second choice; Start 05/24/19 at 08:30; Stop 05/25/19 at 08:29 Prochlorperazine Edisylate (Compazine) 5 mg PACU PRN PRN IV NAUSEA, MRX1; Start 05/24/19 at 08:30; Stop 05/25/19 at 08:29 Acetaminophen (Tylenol) 500 mg PRN Q6HRS PRN PO MILD PAIN / TEMP; Start 05/24/19 at 09:15 Acetaminophen/ Codeine Phosphate (Tylenol #3) 1 tab PRN Q6HRS PRN PO PAIN; Start 05/24/19 at 09:15 Ondansetron HCl (Zofran) 4 mg PRN Q6HRS PRN IVP NAUSEA/VOMITING; Start 05/24/19 at 09:15 Insulin Human Lispro (HumaLOG) 0-9 UNITS TIDWMEALS SQ ; Start 05/24/19 at 12:00 Dextrose (Dextrose 50%-Water Syringe) 12.5 gm PRN Q15MIN PRN IV SEE COMMENTS Last administered on 05/24/19at 09:32; Start 05/24/19 at 09:15 Fentanyl Citrate (Fentanyl 2ml Vial) 50 mcg PRN Q2HR PRN IVP PAIN; Start 05/24/19 at 09:15 Potassium Chloride/Water 100 ml @ 100 mls/hr Q1H IV ; Start 05/24/19 at 11:00; Stop 05/24/19 at 14:59 Active Scripts Active Reported [e] Metolazone 5 Mg Tablet 5 Mg PO DAILY Clopidogrel (Clopidogrel Bisulfate) 75 Mg Tablet 1 Tab PO DAILY Bumetanide 1 Mg Tablet 1 Tab PO BID Tresiba (Insulin Degludec) 100 Unit/1 Ml Vial 20 Unit SQ HS Novolog (Insulin Aspart) 100 Unit/1 Ml Cartridge 8 Unit SQ TIDWMEALS Potassium Chloride 20 Meq Tablet.er 1 Tab PO DAILY 30 Days Finasteride 5 Mg Tablet 5 Mg PO DAILY Metoprolol Succinate ( Xl ) (Metoprolol Succinate) 25 Mg Tab.er.24h 25 Mg PO DAILY Isosorbide Mononitrate Er (Isosorbide Mononitrate) 30 Mg Tab.er.24h 30 Mg PO DAILY Atorvastatin Calcium 80 Mg Tablet 80 Mg PO DAILY Flomax (Tamsulosin Hcl) 0.4 Mg Cap.er.24h 0.4 Mg PO BID Vitals/I & O Vital Sign - Last 24 Hours 05/23/19 05/23/19 05/23/19 05/23/19 11:00 11:21 14:30 15:00 Temp 98.1 98.0 98.1 98.0 Pulse 98 98 98 97 Resp 16 18 B/P (MAP) 112/60 (77) 112/60 (77) 129/63 (85) 132/68 (89) Pulse Ox 90 98 O2 Delivery Room Air Room Air 05/23/19 05/23/19 05/23/19 05/24/19 19:20 20:00 23:27 02:07 Temp 97.7 100.3 100.0 97.7 100.3 100.0 Pulse 109 104 91 Resp 16 16 16 B/P (MAP) 136/73 (94) 124/71 (88) 123/69 (87) Pulse Ox 96 94 96 O2 Delivery Room Air Nasal Cannula Nasal Cannula Nasal Cannula O2 Flow Rate 2.0 2.0 2.0 05/24/19 05/24/19 07:39 09:41 Temp 98.2 98.2 Pulse 90 92 Resp 16 B/P (MAP) 129/75 (93) 133/67 Pulse Ox 93 O2 Delivery Nasal Cannula O2 Flow Rate 2.0 Intake and Output 05/23/19 05/23/19 05/24/19 15:00 23:00 07:00 Intake Total 0 ml Output Total 550 ml 175 ml 750 ml Balance -550 ml -175 ml -750 ml DEDE ARREAGA MD May 24, 2019 10:45
[2019-05-24] MEDS ORDERED: POTASSIUM CHLORIDE 10MEQ 100 ML IV SCH (11:00)
[2019-05-24] MEDS: POTASSIUM CHL 20MEQ PREMIX 50 ML IV SCH ×4 (11:07→20:17)
[2019-05-24] MEDS: CLOPIDOGREL BISULFATE 75 MG TABLET PO SCH (11:07)
[2019-05-24] MEDS: FINASTERIDE 5 MG TABLET. PO SCH (11:07)
--- NOTE | 2019-05-24 11:14 | NUR ---
SS following for discharge planning. SS reviewed pt chart. Pt is from home with family and is currently requiring oxygen. Pt moved to 2N from 4N. Pt being scheduled for Left BKA. SS discussed with Viola GUTIÉRREZ. SS will continue to follow for discharge planning.
--- NOTE | 2019-05-24 11:16 | DS ---
DATE OF DISCHARGE: 05/24/2019 ADMISSION DIAGNOSIS: Diabetic foot ulcers. DISCHARGE DIAGNOSIS: Resolving diabetic foot ulcers. DICTATION ENDS HERE LUCI THRASHER DO DR: GLADYS/negrita JOB#: [id number] / [id number]
--- NOTE | 2019-05-24 12:31 | PDOC ---
PULMONARY PROGRESS NOTES Subjective no soa or CP This gentleman is admitted for a [id number] amputation with anticipated surgery tomorrow. He has severe peripheral vascular disease and a left lower extremity infection. He has CHF and pleural effusions secondary to ischemic cardiomyopathy. He has been diuresed and feels better and not short of breath. Vitals Vital Signs Date Time Temp Pulse Resp B/P (MAP) Pulse Ox O2 Delivery O2 Flow Rate FiO2 05/24/19 10:43 98.2 90 16 132/71 (91) 93 Nasal Cannula 2.0 98.2 ROS: No Nausea, No Chest Pain, No Abdominal Pain, No Increase Cough General: Alert, No acute distress Lungs: Other (dependent rales) Cardiovascular: S1, S2 Abdomen: Soft, Non-tender Neuro Exam: Alert, Oriented, Normal Speech, No Focal Findings Extremities: Other (left foot in dressing) Skin: Other (pretibial edema, foot bandaged) Labs Laboratory Tests Test 05/22/19 14:42 05/22/19 17:43 05/22/19 20:59 05/23/19 05:30 White Blood Count 15.0 x10^3/uL (4.0-11.0) 13.4 x10^3/uL (4.0-11.0) Red Blood Count 3.07 x10^6/uL (4.30-5.70) 2.71 x10^6/uL (4.30-5.70) Hemoglobin 8.7 g/dL (13.0-17.5) 7.7 g/dL (13.0-17.5) Hematocrit 26.6 % (39.0-53.0) 23.5 % (39.0-53.0) Mean Corpuscular Volume 87 fL (79-100) 87 fL (79-100) Mean Corpuscular Hemoglobin 28 pg (25-35) 28 pg (25-35) Mean Corpuscular Hemoglobin Concent 33 g/dL (31-37) 33 g/dL (31-37) Red Cell Distribution Width 16.7 % (11.5-14.5) 16.7 % (11.5-14.5) Platelet Count 301 x10^3/uL (140-400) 271 x10^3/uL (140-400) Neutrophils (%) (Auto) 88 % (31-73) 83 % (31-73) Lymphocytes (%) (Auto) 4 % (24-48) 7 % (24-48) Monocytes (%) (Auto) 6 % (0-9) 9 % (0-9) Eosinophils (%) (Auto) 1 % (0-3) 1 % (0-3) Basophils (%) (Auto) 0 % (0-3) 0 % (0-3) Neutrophils # (Auto) 13.2 x10^3/uL (1.8-7.7) 11.1 x10^3/uL (1.8-7.7) Lymphocytes # (Auto) 0.6 x10^3/uL (1.0-4.8) 0.9 x10^3/uL (1.0-4.8) Monocytes # (Auto) 0.9 x10^3/uL (0.0-1.1) 1.3 x10^3/uL (0.0-1.1) Eosinophils # (Auto) 0.1 x10^3/uL (0.0-0.7) 0.1 x10^3/uL (0.0-0.7) Basophils # (Auto) 0.1 x10^3/uL (0.0-0.2) 0.0 x10^3/uL (0.0-0.2) Glucose (Fingerstick) 165 mg/dL (70-99) 192 mg/dL (70-99) Sodium Level 142 mmol/L (136-145) Potassium Level 3.5 mmol/L (3.5-5.1) Chloride Level 104 mmol/L (98-107) Carbon Dioxide Level 33 mmol/L (21-32) Anion Gap 5 (6-14) Blood Urea Nitrogen 62 mg/dL (8-26) Creatinine 1.8 mg/dL (0.7-1.3) Estimated GFR (Cockcroft-Gault) 37.5 Glucose Level 120 mg/dL (70-99) Calcium Level 7.8 mg/dL (8.5-10.1) Magnesium Level 2.2 mg/dL (1.8-2.4) EF-Qnz-[id number]-Type Natriuretic Peptide > 33683 pg/mL (0-124) Test 05/23/19 07:41 05/23/19 11:59 05/23/19 17:39 05/23/19 20:55 Glucose (Fingerstick) 102 mg/dL (70-99) 217 mg/dL (70-99) 268 mg/dL (70-99) 229 mg/dL (70-99) Test 05/24/19 07:43 05/24/19 09:50 05/24/19 11:41 Glucose (Fingerstick) 67 mg/dL (70-99) 109 mg/dL (70-99) 68 mg/dL (70-99) Sodium Level 142 mmol/L (136-145) Potassium Level 2.9 mmol/L (3.5-5.1) Chloride Level 102 mmol/L (98-107) Carbon Dioxide Level 34 mmol/L (21-32) Anion Gap 6 (6-14) Blood Urea Nitrogen 60 mg/dL (8-26) Creatinine 1.7 mg/dL (0.7-1.3) Estimated GFR (Cockcroft-Gault) 40.0 Glucose Level 140 mg/dL (70-99) Calcium Level 7.8 mg/dL (8.5-10.1) Laboratory Tests Test 05/23/19 17:39 05/23/19 20:55 05/24/19 07:43 05/24/19 09:50 Glucose (Fingerstick) 268 mg/dL (70-99) 229 mg/dL (70-99) 67 mg/dL (70-99) 109 mg/dL (70-99) Sodium Level 142 mmol/L (136-145) Potassium Level 2.9 mmol/L (3.5-5.1) Chloride Level 102 mmol/L (98-107) Carbon Dioxide Level 34 mmol/L (21-32) Anion Gap 6 (6-14) Blood Urea Nitrogen 60 mg/dL (8-26) Creatinine 1.7 mg/dL (0.7-1.3) Estimated GFR (Cockcroft-Gault) 40.0 Glucose Level 140 mg/dL (70-99) Calcium Level 7.8 mg/dL (8.5-10.1) Test 05/24/19 11:41 Glucose (Fingerstick) 68 mg/dL (70-99) Medications Active Scripts Medications Dose Route/Sig Max Daily Dose Days Date Category [e] 05/17/19 Reported Metolazone 5 Mg Tablet 5 Mg PO DAILY 05/17/19 Reported Clopidogrel (Clopidogrel Bisulfate) 75 Mg Tablet 1 Tab PO DAILY 05/17/19 Reported Bumetanide 1 Mg Tablet 1 Tab PO BID 05/17/19 Reported Tresiba (Insulin Degludec) 100 Unit/1 Ml Vial 20 Unit SQ HS 05/17/19 Reported Novolog (Insulin Aspart) 100 Unit/1 Ml Cartridge 8 Unit SQ TIDWMEALS 05/17/19 Reported Potassium Chloride 20 Meq Tablet.er 1 Tab PO DAILY 30 05/17/19 Reported Finasteride 5 Mg Tablet 5 Mg PO DAILY 12/08/18 Reported Metoprolol Succinate ( Xl ) (Metoprolol Succinate) 25 Mg Tab.er.24h 25 Mg PO DAILY 12/08/18 Reported Isosorbide Mononitrate Er (Isosorbide Mononitrate) 30 Mg Tab.er.24h 30 Mg PO DAILY 12/08/18 Reported Atorvastatin Calcium 80 Mg Tablet 80 Mg PO DAILY 12/08/18 Reported Flomax (Tamsulosin Hcl) 0.4 Mg Cap.er.24h 0.4 Mg PO BID 12/08/18 Reported Comments CXR today still with pulmonary edema and pleural effusions, but significantly improved from CXR 05/21 Impression . 1. Bilateral pleural effusions and pulmonary edema secondary to systolic heart failure, mildly improved cxr with diuresis 2. severe PVD, 3. hypokalemia 4. ckd 5. CMP Plan . Continue diuresis. replace K will need repeat cxr in few days proceed with surgery d/w RN/ Will follow. NEMO TAN MD May 24, 2019 12:31
[2019-05-24] MEDS ORDERED: ROCURONIUM 50 MG/5 ML VIAL. ONE (12:40)
[2019-05-24] MEDS ORDERED: fentaNYL PF VIAL 100 MCG/2 ML VIAL ONE (12:43)
--- NOTE | 2019-05-24 14:11 | PDOC ---
A/P: Consult received - in OR for left BKA - will follow-up when able. JOHN BRYSON May 24, 2019 14:11
--- NOTE | 2019-05-24 15:10 | PDOC ---
Provider Note Provider Note Pt seen and examined in pre-op left leg marked, consent signed PLan for LEFT BKA -- I discussed the procedure with the patient and his family who are present They express understanding and wish to proceed. GERA RIGGINS MD May 24, 2019 15:10
[2019-05-24] MEDS ORDERED: LIDOCAINE 2% PF 5 ML VIAL. ONE (15:20)
[2019-05-24] MEDS ORDERED: ETOMIDATE 20 MG/10 ML VIAL. IV ONE (15:20)
[2019-05-24] MEDS ORDERED: SEVOFLURANE 31 TO 60 MINUTES. IH ONE (16:03)
[2019-05-24] MEDS ORDERED: ONDANSETRON PF 4 MG/2 ML VIAL. ONE (16:03)
[2019-05-24] MEDS ORDERED: DEXTROSE 50% 25 GM / 50ML DISP.SYRIN. IV ONE (16:22)
[2019-05-24] MEDS ORDERED: PHENYLEPHRINE in 0.9% NACL PF 1 MG/10 ML SYRINGE. IV ONE (16:48)
--- NOTE | 2019-05-24 17:09 | PDOC4 ---
OPERATIVE NOTE Date: Date: May 24, 2019 Pre-Op Diagnosis: Peripheral vascular disease with gangrene left foot Diabetes mellitus with peripheral vascular disease Post-Op Diagnosis: Same as above Procedure Performed: Left below-knee amputation Surgeon: Patricio Riggins MD Anesthesia Type: Gen. Blood Loss: 100 mL Specimans Obtained: Left leg below the knee Findings: Gangrene left foot Severely calcified atherosclerotic tibial vessels Muscle and skin appeared healthy at amputation margins -- would expect wound healing Complications: None Operative Note: Patient was escorted to the operating room and placed supine on the table. The left leg was prepped and draped in usual sterile fashion. Appropriate timeout was performed confirming patient and surgical site. Etc. Attention was directed the left leg where marking pen was used to john the leg this standard posterior flap-type incision for below-knee amputation. #10 scalpel was used to make a skin incision along this line and then Bovie cautery was used to divide the underlying subcutaneous tissues and fascia. The muscle in the anterior compartment was divided with Bovie cautery and the anterior tibial neurovascular bundle was clamped with opposing hemostats and divided between these. The vessels were ligated with stick ties. The 2 bones were completely isolated and a sterile lap pad was passed behind them. The tourniquet was inflated. The saw was used to divide the bones just above the skin incision level and then the Bovie cautery was used to complete the posterior muscle division in the left lower leg was passed off the field. The tibial vessels within the deep posterior compartment were isolated and clamped and ligated with stick ties. The posterior muscle was removed as necessary to the give adequate space for closing the posterior flap but still leave a good posterior muscle flap to cover the bone. The tourniquet was taken down and excellent hemostasis was assured throughout the operative field. The wound was irrigated and then the posterior flap was brought forward and found to approximate well under minimal to no tension. The rough edges of the bone were smoothed out with the saw. The wound was further irrigated and then closed. The fascia was reapproximated with a series of interrupted buried [id number] sutures using 0 Vicryl. Once the fascia was reapproximated along the entire flap running 3-0 Vicryl was used to perform a subdermal stitch to take tension off the skin. The skin was then reapproximated with skin indigo. The leg was cleaned and dried and a sterile dressing was placed over the stump. The patient was escorted to recovery in stable condition. There were no complications, the patient tolerated procedure well throughout, at the end of the case all sponge, needle, and instrument counts were reported to me as correct 2. GERA RIGGINS MD May 24, 2019 17:09
--- NOTE | 2019-05-24 18:00 | NUR ---
Patients surgery scheduled at 1400, Dr. Simon wants patient to receive additional 40 IV potassium after surgery and then 40 IV lasix after potassium has infused. Will notify oncoming nurse.
[2019-05-24] MEDS ORDERED: MORPHINE SULFATE 2 MG/ML VIAL. ONE (18:18)
[2019-05-24] MEDS: MORPHINE SULFATE 2 MG/ML VIAL. IV PRN ×2 (18:23→18:33)
[2019-05-24 18:40] VITALS: BP 146/81
--- NOTE | 2019-05-24 19:00 | NUR ---
Patient returned from PACU at 1840, left bka site clean, dry and intact. Vitals stable, patient alert and oriented, 100% on 2L NC, meal tray ordered, milrinone gtt running at 3mls/hr. Report given to CONCHA Jauregui
[2019-05-24 19:45] VITALS: BP 146/89
[2019-05-24] MEDS: ATORVASTATIN CALCIUM 40 MG TABLET. PO SCH (20:40)
[2019-05-24 23:00] VITALS: BP 127/61
[2019-05-24] MEDS: INSULIN GLARGINE SYRINGE. SQ SCH (23:23)
[2019-05-25 03:30] VITALS: BP 131/71
[2019-05-25] MEDS: MEROPENEM 500 MG in IV NORMAL SALINE 50ML 50 ML IV SCH ×3 (05:04→21:44)
[2019-05-25 07:00] VITALS: BP 136/80
--- NOTE | 2019-05-25 07:11 | PDOC ---
Infectious Disease Note Subjective: Subjective Comfortable,postop pain is under control no fevers last 24 hrs d/w son at bedside no new concerns no f/c/n/v/d/sob Vital Signs: Vital Signs Vital Signs Date Time Temp Pulse Resp B/P (MAP) Pulse Ox O2 Delivery O2 Flow Rate FiO2 05/25/19 03:30 98.0 114 20 131/71 (91) 98 Nasal Cannula 2.0 98.0 Physical Exam: PHYSICAL EXAM GENERAL: Propped up in bed, alert, NAD HEENT: Oral cavity clear, no lesions NECK: Supple. LUNGS: Clear. HEART: S1, S2 regular. ABDOMEN: Soft EXTREMITIES: Foot wounds bandaged SKIN: without rash NEUROLOGIC: Alert, responds appropriately RUE-PICC (05/19) Medications: Inpatient Meds: Current Medications Medications (Trade) Dose Ordered Sig/Rose Start Time Stop Time Status Last Admin Dose Admin Acetaminophen (Tylenol) 500 mg PRN Q6HRS PRN 05/24/19 09:15 Acetaminophen/ Codeine Phosphate (Tylenol #3) 1 tab PRN Q6HRS PRN 05/24/19 09:15 Aspirin (Ecotrin) 81 mg [id number] 05/21/19 12:45 05/23/19 08:40 DC 05/22/19 08:19 81 MG Atorvastatin Calcium (Lipitor) 80 mg QHS 05/17/19 21:00 05/24/19 20:40 80 MG Bumetanide (Bumex) 1 mg [id number] 05/17/19 16:00 05/21/19 12:44 DC 05/21/19 12:07 1 MG Clopidogrel Bisulfate (Plavix) 75 mg DAILY 05/18/19 09:00 05/24/19 11:07 75 MG Daptomycin 320 mg/ Sodium Chloride 50 ml @ 100 mls/hr Q24H 05/19/19 09:45 05/24/19 09:42 100 MLS/HR Dextrose (Dextrose 50%-Water Syringe) 25 gm STK-MED ONCE 05/24/19 16:22 05/24/19 16:22 DC Diphenhydramine HCl (Benadryl) 25 mg PRN 1X PRN 05/22/19 06:30 Etomidate (Amidate) 20 mg STK-MED ONCE 05/24/19 15:20 05/24/19 15:20 DC Fentanyl Citrate (Fentanyl 2ml Vial) 100 mcg STK-MED ONCE 05/24/19 12:43 05/24/19 12:44 DC Finasteride (Proscar) 5 mg DAILY 05/18/19 09:00 05/24/19 11:07 5 MG Furosemide (Lasix) 40 mg [id number] 05/21/19 14:00 05/24/19 20:37 40 MG Hydromorphone HCl (Dilaudid) 0.5 mg PRN Q10MIN PRN 05/24/19 08:30 05/25/19 08:29 Insulin Glargine (Lantus Syringe) 20 unit QHS 05/17/19 21:00 05/24/19 23:23 20 UNIT Insulin Human Lispro (HumaLOG) 0-9 UNITS TIDWMEALS 05/24/19 12:00 Isosorbide Mononitrate (Imdur) 30 mg DAILY 05/18/19 09:00 05/21/19 12:44 DC 05/21/19 12:07 30 MG Lactobacillus Rhamnosus (Culturelle) 1 cap BID 05/18/19 21:00 05/24/19 20:40 1 CAP Lidocaine HCl (Buffered Lidocaine 1%) 3 ml 1X ONCE 05/19/19 11:00 05/19/19 11:01 DC 05/19/19 11:11 5 ML Lidocaine HCl (Lidocaine Pf 2% Vial) 5 ml STK-MED ONCE 05/24/19 15:20 05/24/19 15:20 DC Linezolid (Zyvox) 600 mg BID 05/17/19 14:00 05/19/19 09:36 DC 05/19/19 08:19 600 MG Meropenem 500 mg/ Sodium Chloride 50 ml @ 100 mls/hr Q8HRS 05/17/19 14:00 05/25/19 05:04 100 MLS/HR Metolazone (Zaroxolyn) 5 mg DAILY 05/18/19 09:00 05/21/19 12:44 DC 05/21/19 12:06 5 MG Metoprolol Succinate (Toprol Xl) 25 mg DAILY 05/18/19 09:00 05/24/19 09:41 25 MG Milrinone Lactate/ Dextrose 100 ml @ 2.977 mls/ hr CONT PRN 05/21/19 12:45 05/24/19 02:00 2.977 MLS/HR Morphine Sulfate (Morphine Sulfate) 2 mg STK-MED ONCE 05/24/19 18:18 05/24/19 18:18 DC Multivitamins (Thera M Plus) 1 tab DAILY 05/19/19 11:00 05/23/19 08:57 1 TAB Ondansetron HCl (Zofran) 4 mg STK-MED ONCE 05/24/19 16:03 05/24/19 16:03 DC Phenylephrine HCl (PHENYLEPHRINE in 0.9% NACL PF) 1 mg STK-MED ONCE 05/24/19 16:48 05/24/19 16:48 DC Potassium Chloride/Water 50 ml @ 50 mls/hr Q1H 05/24/19 17:00 05/24/19 18:59 DC 05/24/19 20:17 50 MLS/HR Potassium Chloride (Klor-Con) 20 meq [id number] 05/18/19 08:00 05/23/19 08:56 20 MEQ Prochlorperazine Edisylate (Compazine) 5 mg PACU PRN PRN 05/24/19 08:30 05/25/19 08:29 Ringer's Solution 1,000 ml @ 30 mls/hr Q24H 05/24/19 08:28 05/24/19 20:27 DC 05/24/19 16:30 30 MLS/HR Rocuronium [place] (Zemuron) 50 mg STK-MED ONCE 05/24/19 12:40 05/24/19 12:40 DC Sevoflurane (Ultane) 30 ml STK-MED ONCE 05/24/19 16:03 05/24/19 16:03 DC Sodium Hypochlorite (Dakin'S 1/4 Strength) 1 yg DAILY 05/17/19 13:30 05/21/19 12:37 DC 05/18/19 12:40 1 YG Sodium Chloride 1,000 ml @ 75 mls/hr [id number] 05/17/19 12:00 05/19/19 15:49 DC 05/18/19 21:44 75 MLS/HR Tamsulosin HCl (Flomax) 0.4 mg BID 05/17/19 21:00 05/24/19 20:40 0.4 MG Labs: Lab Laboratory Tests Test 05/24/19 07:43 05/24/19 09:50 05/24/19 11:41 05/24/19 12:22 Glucose (Fingerstick) 67 mg/dL (70-99) 109 mg/dL (70-99) 68 mg/dL (70-99) 107 mg/dL (70-99) Sodium Level 142 mmol/L (136-145) Potassium Level 2.9 mmol/L (3.5-5.1) Chloride Level 102 mmol/L (98-107) Carbon Dioxide Level 34 mmol/L (21-32) Anion Gap 6 (6-14) Blood Urea Nitrogen 60 mg/dL (8-26) Creatinine 1.7 mg/dL (0.7-1.3) Estimated GFR (Cockcroft-Gault) 40.0 Glucose Level 140 mg/dL (70-99) Calcium Level 7.8 mg/dL (8.5-10.1) Test 05/24/19 13:45 05/24/19 16:03 05/24/19 17:54 05/24/19 20:39 Glucose (Fingerstick) 84 mg/dL (70-99) 66 mg/dL (70-99) 107 mg/dL (70-99) 163 mg/dL (70-99) Test 05/24/19 23:17 Glucose (Fingerstick) 276 mg/dL (70-99) Objective: Assessment: Fever resolved Left foot diabetic foot infection to tendon an bone 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 Hypertension. Coronary artery disease. Ischemic cardiomyopathy h/o ESBL Plan: Plan of Care cont Dapto and meropenem for now,will deescalate soon Monitor for abx toxicities Probiotics Local wound care as directed D/W ANDREAS Alaniz MD May 25, 2019 07:11
[2019-05-25] MEDS: FINASTERIDE 5 MG TABLET. PO SCH (07:51)
[2019-05-25] MEDS: FUROSEMIDE 40 MG/4 ML VIAL. IVP SCH ×2 (07:51→13:38)
[2019-05-25] MEDS: METOPROLOL SUCC 24HR ER 25 MG TAB.ER.24H. PO SCH (07:51)
[2019-05-25] MEDS: LACTOBACILLUS RHAMNOSUS GG 1 CAPSULE. PO SCH ×2 (07:52→20:21)
[2019-05-25] MEDS: TAMSULOSIN 0.4 MG CAP.ER.24H. PO SCH ×2 (07:52→20:21)
[2019-05-25] MEDS: MULTIVITAMIN with MINERAL TABLET. PO SCH (07:52)
[2019-05-25] MEDS: POTASSIUM CHLORIDE 20 MEQ TABLET.ER. PO SCH (07:52)
[2019-05-25] MEDS: CLOPIDOGREL BISULFATE 75 MG TABLET PO SCH (07:52)
[2019-05-25 08:07] LABS: CALCIUM 7.5 mg/dL (8.5-10.1); CREATININE 1.9 mg/dL (0.7-1.3); GFR 35.2
[2019-05-25] MEDS: INSULIN LISPRO 300 UNITS/3 ML VIAL. SQ SCH ×6 (08:09→17:26)
[2019-05-25 08:10] LABS: POTASSIUM 4.4 mmol/L (3.5-5.1)
[2019-05-25 08:16] LABS: HEMATOCRIT 26.5 % (39.0-53.0); HEMOGLOBIN 8.6 g/dL (13.0-17.5); RED BLOOD COUNT 3.03 x10^6/uL (4.30-5.70); RED CELL DISTRIBUTION WIDTH 16.7 % (11.5-14.5); WHITE BLOOD COUNT 15.4 x10^3/uL (4.0-11.0)
[2019-05-25] MEDS ORDERED: oxyCODONE/APAP 5/325 1 TAB TABLET PO PRN (08:30)
--- NOTE | 2019-05-25 08:34 | PDOC ---
Provider Note Provider Note S: POD #1 of left BKA Patient seen and examined and removed this morning with sudden bedside, who assisted with interpretation. Patient reports no complaints. He reports his pain is present, but controlled with available medications. He does not have any available oral pain medicine other than Tylenol with codeine. She will this morning is 8.6. He is tachycardic, however the nurse just gave him his metoprolol. O: Vital signs stable, tachycardic rate 117, afebrile Awake, alert, distress Respirations unlabored, on O2 via nasal cannula Left BKA dressing clean, dry, intact. Surrounding skin without erythema or signs of irritation. Left knee can fully extend to 180. Right foot dressing clean, dry, intact A/P: Severe diabetic foot infection of the left lower extremity Osteomyelitis Anemia Diabetes POD#1 of Left BKA - Pt doing well, will add PO pain med option (pain rx left in chart as well) - We will remove dressing tomorrow - Work with PT today, he was educated on knee extension exercises - Rigid rooke boot can be placed later today - Hgb stable at 8.6 today - Elevated WBC at 15.4, afebrile - continue abx per ID. His follow up appt is on 06/[address] Schofield at our [place] office. DAYANA WINTER May 25, 2019 08:34
--- NOTE | 2019-05-25 08:36 | PDOC ---
SUBJECTIVE ROS S/P Lt BKA 05/24 OBJECTIVE Vital Signs Vital Signs Date Time Temp Pulse Resp B/P (MAP) Pulse Ox O2 Delivery O2 Flow Rate FiO2 05/25/19 07:51 117 136/80 05/25/19 07:50 18 92 Nasal Cannula 2.0 05/25/19 07:00 98.9 98.9 I & 0 l Intake and Output 05/25/19 07:00 Intake Total 500 ml Output Total 1700 ml Balance -1200 ml Intake Oral 200 ml IV Total 300 ml Output Urine Total 1600 ml Estimated Blood Loss 100 ml # Voids 2 PHYSICAL EXAM Physical Exam GENERAL: alert, NAD HEENT: Oral cavity moist NECK: Supple. LUNGS: Clear. HEART: S1, S2 regular. 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 Current FLuid and E-lyte status does not necessitate emergent need for Dialysis. Proteinuria: Non-nephrotic range Anemia: Multiple PRBC, per daughter recently PRBC x3 when he was visiting [place] Never had colonoscopy, Tsat low ,Recommend further steinberg for anemia , GI consulted SPEP, K/L ordered, results pending HTN: Defer to cardiology to optimize from cardiomyopathy standpoint Cardiomyopathy with EF of 25%: Patient has small pleural effusions and he remains on inotropes at this time. Diabetes: deferred to primary team Severe hypoalbuminemia: Suspect early due to ongoing infection and once. Protein creatinine ratio is only 1.4 g Dw Daughter and RN COMMENT/RELEVANT DATA Meds Current Medications Medications (Trade) Dose Ordered Sig/Rose Start Time Stop Time Status Last Admin Dose Admin Acetaminophen (Tylenol) 500 mg PRN Q6HRS PRN 05/24/19 09:15 Acetaminophen/ Codeine Phosphate (Tylenol #3) 1 tab PRN Q6HRS PRN 05/24/19 09:15 Aspirin (Ecotrin) 81 mg [id number] 05/21/19 12:45 05/23/19 08:40 DC 05/22/19 08:19 81 MG Atorvastatin Calcium (Lipitor) 80 mg QHS 05/17/19 21:00 05/24/19 20:40 80 MG Bumetanide (Bumex) 1 mg [id number] 05/17/19 16:00 05/21/19 12:44 DC 05/21/19 12:07 1 MG Clopidogrel Bisulfate (Plavix) 75 mg DAILY 05/18/19 09:00 05/25/19 07:52 75 MG Daptomycin 320 mg/ Sodium Chloride 50 ml @ 100 mls/hr Q24H 05/19/19 09:45 05/24/19 09:42 100 MLS/HR Dextrose (Dextrose 50%-Water Syringe) 25 gm STK-MED ONCE 05/24/19 16:22 05/24/19 16:22 DC Diphenhydramine HCl (Benadryl) 25 mg PRN 1X PRN 05/22/19 06:30 Etomidate (Amidate) 20 mg STK-MED ONCE 05/24/19 15:20 05/24/19 15:20 DC Fentanyl Citrate (Fentanyl 2ml Vial) 100 mcg STK-MED ONCE 05/24/19 12:43 05/24/19 12:44 DC Finasteride (Proscar) 5 mg DAILY 05/18/19 09:00 05/25/19 07:51 5 MG Furosemide (Lasix) 40 mg [id number] 05/21/19 14:00 05/25/19 07:51 40 MG Hydromorphone HCl (Dilaudid) 0.5 mg PRN Q10MIN PRN 05/24/19 08:30 05/25/19 08:29 DC Insulin Glargine (Lantus Syringe) 20 unit QHS 05/17/19 21:00 05/24/19 23:23 20 UNIT Insulin Human Lispro (HumaLOG) 0-9 UNITS TIDWMEALS 05/24/19 12:00 05/25/19 08:09 7 UNITS Isosorbide Mononitrate (Imdur) 30 mg DAILY 05/18/19 09:00 05/21/19 12:44 DC 05/21/19 12:07 30 MG Lactobacillus Rhamnosus (Culturelle) 1 cap BID 05/18/19 21:00 05/25/19 07:52 1 CAP Lidocaine HCl (Buffered Lidocaine 1%) 3 ml 1X ONCE 05/19/19 11:00 05/19/19 11:01 DC 05/19/19 11:11 5 ML Lidocaine HCl (Lidocaine Pf 2% Vial) 5 ml STK-MED ONCE 05/24/19 15:20 05/24/19 15:20 DC Linezolid (Zyvox) 600 mg BID 05/17/19 14:00 05/19/19 09:36 DC 05/19/19 08:19 600 MG Meropenem 500 mg/ Sodium Chloride 50 ml @ 100 mls/hr Q8HRS 05/17/19 14:00 05/25/19 05:04 100 MLS/HR Metolazone (Zaroxolyn) 5 mg DAILY 05/18/19 09:00 05/21/19 12:44 DC 05/21/19 12:06 5 MG Metoprolol Succinate (Toprol Xl) 25 mg DAILY 05/18/19 09:00 05/25/19 07:51 25 MG Milrinone Lactate/ Dextrose 100 ml @ 2.977 mls/ hr CONT PRN 05/21/19 12:45 05/24/19 02:00 2.977 MLS/HR Morphine Sulfate (Morphine Sulfate) 2 mg STK-MED ONCE 05/24/19 18:18 05/24/19 18:18 DC Multivitamins (Thera M Plus) 1 tab DAILY 05/19/19 11:00 05/25/19 07:52 1 TAB Ondansetron HCl (Zofran) 4 mg STK-MED ONCE 05/24/19 16:03 05/24/19 16:03 DC Oxycodone/ Acetaminophen (Percocet 5/325) 1 tab PRN Q4HRS PRN 05/25/19 08:30 Phenylephrine HCl (PHENYLEPHRINE in 0.9% NACL PF) 1 mg STK-MED ONCE 05/24/19 16:48 05/24/19 16:48 DC Potassium Chloride/Water 50 ml @ 50 mls/hr Q1H 05/24/19 17:00 05/24/19 18:59 DC 05/24/19 20:17 50 MLS/HR Potassium Chloride (Klor-Con) 20 meq [id number] 05/18/19 08:00 05/25/19 07:52 20 MEQ Prochlorperazine Edisylate (Compazine) 5 mg PACU PRN PRN 05/24/19 08:30 05/25/19 08:29 DC Ringer's Solution 1,000 ml @ 30 mls/hr Q24H 05/24/19 08:28 05/24/19 20:27 DC 05/24/19 16:30 30 MLS/HR Rocuronium [place] (Zemuron) 50 mg STK-MED ONCE 05/24/19 12:40 05/24/19 12:40 DC Sevoflurane (Ultane) 30 ml STK-MED ONCE 05/24/19 16:03 05/24/19 16:03 DC Sodium Hypochlorite (Dakin'S 1/4 Strength) 1 yg DAILY 05/17/19 13:30 05/21/19 12:37 DC 05/18/19 12:40 1 YG Sodium Chloride 1,000 ml @ 75 mls/hr [id number] 05/17/19 12:00 05/19/19 15:49 DC 05/18/19 21:44 75 MLS/HR Tamsulosin HCl (Flomax) 0.4 mg BID 05/17/19 21:00 05/25/19 07:52 0.4 MG Lab Laboratory Tests Test 05/24/19 09:50 05/24/19 11:41 05/24/19 12:22 05/24/19 13:45 Sodium Level 142 mmol/L (136-145) Potassium Level 2.9 mmol/L (3.5-5.1) Chloride Level 102 mmol/L (98-107) Carbon Dioxide Level 34 mmol/L (21-32) Anion Gap 6 (6-14) Blood Urea Nitrogen 60 mg/dL (8-26) Creatinine 1.7 mg/dL (0.7-1.3) Estimated GFR (Cockcroft-Gault) 40.0 Glucose Level 140 mg/dL (70-99) Glucose (Fingerstick) 109 mg/dL (70-99) 68 mg/dL (70-99) 107 mg/dL (70-99) 84 mg/dL (70-99) Calcium Level 7.8 mg/dL (8.5-10.1) Test 05/24/19 16:03 05/24/19 17:54 05/24/19 20:39 05/24/19 23:17 Glucose (Fingerstick) 66 mg/dL (70-99) 107 mg/dL (70-99) 163 mg/dL (70-99) 276 mg/dL (70-99) Test 05/25/19 07:35 05/25/19 07:57 White Blood Count 15.4 x10^3/uL (4.0-11.0) Red Blood Count 3.03 x10^6/uL (4.30-5.70) Hemoglobin 8.6 g/dL (13.0-17.5) Hematocrit 26.5 % (39.0-53.0) Mean Corpuscular Volume 88 fL (79-100) Mean Corpuscular Hemoglobin 29 pg (25-35) Mean Corpuscular Hemoglobin Concent 33 g/dL (31-37) Red Cell Distribution Width 16.7 % (11.5-14.5) Platelet Count 270 x10^3/uL (140-400) Sodium Level 142 mmol/L (136-145) Potassium Level 4.4 mmol/L (3.5-5.1) Chloride Level 105 mmol/L (98-107) Carbon Dioxide Level 33 mmol/L (21-32) Anion Gap 4 (6-14) Blood Urea Nitrogen 57 mg/dL (8-26) Creatinine 1.9 mg/dL (0.7-1.3) Estimated GFR (Cockcroft-Gault) 35.2 Glucose Level 279 mg/dL (70-99) Calcium Level 7.5 mg/dL (8.5-10.1) Glucose (Fingerstick) 252 mg/dL (70-99) Results All relevant outside records, renal labs, imaging studies, telemetry/EKG's were reviewed. JULIANA DENSON MD May 25, 2019 08:36
--- NOTE | 2019-05-25 09:02 | PDOC ---
PULMONARY PROGRESS NOTES Subjective PT NOT MORE SOA Vitals Vital Signs Date Time Temp Pulse Resp B/P (MAP) Pulse Ox O2 Delivery O2 Flow Rate FiO2 05/25/19 07:51 117 136/80 05/25/19 07:50 18 92 Nasal Cannula 2.0 05/25/19 07:00 98.9 98.9 ROS: No Nausea, No Chest Pain, No Abdominal Pain, No Increase Cough General: Alert, No acute distress Lungs: Other (dependent rales) Cardiovascular: S1, S2 Abdomen: Soft, Non-tender Neuro Exam: Alert, Oriented, Normal Speech, No Focal Findings Extremities: Other (left foot in dressing) Skin: Other (pretibial edema, foot bandaged) Labs Laboratory Tests Test 05/23/19 11:59 05/23/19 17:39 05/23/19 20:55 05/24/19 07:43 Glucose (Fingerstick) 217 mg/dL (70-99) 268 mg/dL (70-99) 229 mg/dL (70-99) 67 mg/dL (70-99) Test 05/24/19 09:50 05/24/19 11:41 05/24/19 12:22 05/24/19 13:45 Sodium Level 142 mmol/L (136-145) Potassium Level 2.9 mmol/L (3.5-5.1) Chloride Level 102 mmol/L (98-107) Carbon Dioxide Level 34 mmol/L (21-32) Anion Gap 6 (6-14) Blood Urea Nitrogen 60 mg/dL (8-26) Creatinine 1.7 mg/dL (0.7-1.3) Estimated GFR (Cockcroft-Gault) 40.0 Glucose Level 140 mg/dL (70-99) Glucose (Fingerstick) 109 mg/dL (70-99) 68 mg/dL (70-99) 107 mg/dL (70-99) 84 mg/dL (70-99) Calcium Level 7.8 mg/dL (8.5-10.1) Test 05/24/19 16:03 05/24/19 17:54 05/24/19 20:39 05/24/19 23:17 Glucose (Fingerstick) 66 mg/dL (70-99) 107 mg/dL (70-99) 163 mg/dL (70-99) 276 mg/dL (70-99) Test 05/25/19 07:35 05/25/19 07:57 White Blood Count 15.4 x10^3/uL (4.0-11.0) Red Blood Count 3.03 x10^6/uL (4.30-5.70) Hemoglobin 8.6 g/dL (13.0-17.5) Hematocrit 26.5 % (39.0-53.0) Mean Corpuscular Volume 88 fL (79-100) Mean Corpuscular Hemoglobin 29 pg (25-35) Mean Corpuscular Hemoglobin Concent 33 g/dL (31-37) Red Cell Distribution Width 16.7 % (11.5-14.5) Platelet Count 270 x10^3/uL (140-400) Sodium Level 142 mmol/L (136-145) Potassium Level 4.4 mmol/L (3.5-5.1) Chloride Level 105 mmol/L (98-107) Carbon Dioxide Level 33 mmol/L (21-32) Anion Gap 4 (6-14) Blood Urea Nitrogen 57 mg/dL (8-26) Creatinine 1.9 mg/dL (0.7-1.3) Estimated GFR (Cockcroft-Gault) 35.2 Glucose Level 279 mg/dL (70-99) Calcium Level 7.5 mg/dL (8.5-10.1) Glucose (Fingerstick) 252 mg/dL (70-99) Laboratory Tests Test 05/24/19 09:50 05/24/19 11:41 05/24/19 12:22 05/24/19 13:45 Sodium Level 142 mmol/L (136-145) Potassium Level 2.9 mmol/L (3.5-5.1) Chloride Level 102 mmol/L (98-107) Carbon Dioxide Level 34 mmol/L (21-32) Anion Gap 6 (6-14) Blood Urea Nitrogen 60 mg/dL (8-26) Creatinine 1.7 mg/dL (0.7-1.3) Estimated GFR (Cockcroft-Gault) 40.0 Glucose Level 140 mg/dL (70-99) Glucose (Fingerstick) 109 mg/dL (70-99) 68 mg/dL (70-99) 107 mg/dL (70-99) 84 mg/dL (70-99) Calcium Level 7.8 mg/dL (8.5-10.1) Test 05/24/19 16:03 05/24/19 17:54 05/24/19 20:39 05/24/19 23:17 Glucose (Fingerstick) 66 mg/dL (70-99) 107 mg/dL (70-99) 163 mg/dL (70-99) 276 mg/dL (70-99) Test 05/25/19 07:35 05/25/19 07:57 White Blood Count 15.4 x10^3/uL (4.0-11.0) Red Blood Count 3.03 x10^6/uL (4.30-5.70) Hemoglobin 8.6 g/dL (13.0-17.5) Hematocrit 26.5 % (39.0-53.0) Mean Corpuscular Volume 88 fL (79-100) Mean Corpuscular Hemoglobin 29 pg (25-35) Mean Corpuscular Hemoglobin Concent 33 g/dL (31-37) Red Cell Distribution Width 16.7 % (11.5-14.5) Platelet Count 270 x10^3/uL (140-400) Sodium Level 142 mmol/L (136-145) Potassium Level 4.4 mmol/L (3.5-5.1) Chloride Level 105 mmol/L (98-107) Carbon Dioxide Level 33 mmol/L (21-32) Anion Gap 4 (6-14) Blood Urea Nitrogen 57 mg/dL (8-26) Creatinine 1.9 mg/dL (0.7-1.3) Estimated GFR (Cockcroft-Gault) 35.2 Glucose Level 279 mg/dL (70-99) Calcium Level 7.5 mg/dL (8.5-10.1) Glucose (Fingerstick) 252 mg/dL (70-99) Medications Active Scripts Medications Dose Route/Sig Max Daily Dose Days Date Category [e] 05/17/19 Reported Metolazone 5 Mg Tablet 5 Mg PO DAILY 05/17/19 Reported Clopidogrel (Clopidogrel Bisulfate) 75 Mg Tablet 1 Tab PO DAILY 05/17/19 Reported Bumetanide 1 Mg Tablet 1 Tab PO BID 05/17/19 Reported Tresiba (Insulin Degludec) 100 Unit/1 Ml Vial 20 Unit SQ HS 05/17/19 Reported Novolog (Insulin Aspart) 100 Unit/1 Ml Cartridge 8 Unit SQ TIDWMEALS 05/17/19 Reported Potassium Chloride 20 Meq Tablet.er 1 Tab PO DAILY 30 05/17/19 Reported Finasteride 5 Mg Tablet 5 Mg PO DAILY 12/08/18 Reported Metoprolol Succinate ( Xl ) (Metoprolol Succinate) 25 Mg Tab.er.24h 25 Mg PO DAILY 12/08/18 Reported Isosorbide Mononitrate Er (Isosorbide Mononitrate) 30 Mg Tab.er.24h 30 Mg PO DAILY 12/08/18 Reported Atorvastatin Calcium 80 Mg Tablet 80 Mg PO DAILY 12/08/18 Reported Flomax (Tamsulosin Hcl) 0.4 Mg Cap.er.24h 0.4 Mg PO BID 12/08/18 Reported Impression . 1. Bilateral pleural effusions and pulmonary edema secondary to systolic heart failure, mildly improved cxr with diuresis 2. severe PVD, S/O AMPUTATION 3. hypokalemia 4. ckd 5. CMP Plan . PT RESP STATUS IS COMPENSATED WILL CONTINUE THE SAME Continue diuresis. replace K will need repeat cxr in few days MAR RODRIGUEZ MD May 25, 2019 09:02
--- NOTE | 2019-05-25 09:44 | PDOC2 ---
GI CONSULT Reason For Consult: iron deficiency, multiple pRBCs, no colonoscopy HPI: HPI: 68 y/o male w/ multiple health problems as below who underwent left BKA yesterday (05/24/19). Speaks Malagasy, son (also named Umair) translates. Is anemic - seems mix of chronic illness and iron deficiency, has required trans fusions. Denies hematemesis, hematochezia, and melena. No reflux/heartburn, dysphagia, n/v, abd pain, diarrhea, constipation, or weight loss. Doesn't like the food here so not eating as much. No previous EGD or colonoscopy - colonoscopy apparently scheduled 6 months ago (not sure where) but not pursued due to other health issues. Cholelithiasis on imaging. No liver, pancreas, or PUD history. On ASA and Brilinta prior to admission, now Plavix. Denies NSAIDs. PMH: PMH: CAD w/ stents, CHF, HTN, HLD, PVD, cardiomyopathy, carotid artery disease, TIA, anemia, OA, UTI, CKD, BPH, urinary retention, DM, cholelithiasis left great toe amputation, left BKA, thoracentesis FH: Family History: No pertinent hx Social History: ALCOHOL: none Drugs: None ROS: GEN: Denies fevers, chills, sweats HEENT: Denies blurred vision, sore throat CV: Denies chest pain RESP: Denies shortness of air, cough GI: Per HPI : Denies hematuria, dysuria ENDO: Denies weight changes NEURO: Denies confusion, dizziness MSK: leg pain SKIN: Denies jaundice, pruritus Vitals: Vitals: Vital Signs Date Time Temp Pulse Resp B/P (MAP) Pulse Ox O2 Delivery O2 Flow Rate FiO2 05/25/19 07:51 117 136/80 05/25/19 07:50 18 92 Nasal Cannula 2.0 05/25/19 07:00 98.9 98.9 Labs: Labs: Laboratory Tests Test 05/24/19 09:50 05/24/19 11:41 05/24/19 12:22 05/24/19 13:45 Sodium Level 142 mmol/L (136-145) Potassium Level 2.9 mmol/L (3.5-5.1) Chloride Level 102 mmol/L (98-107) Carbon Dioxide Level 34 mmol/L (21-32) Anion Gap 6 (6-14) Blood Urea Nitrogen 60 mg/dL (8-26) Creatinine 1.7 mg/dL (0.7-1.3) Estimated GFR (Cockcroft-Gault) 40.0 Glucose Level 140 mg/dL (70-99) Glucose (Fingerstick) 109 mg/dL (70-99) 68 mg/dL (70-99) 107 mg/dL (70-99) 84 mg/dL (70-99) Calcium Level 7.8 mg/dL (8.5-10.1) Test 05/24/19 16:03 05/24/19 17:54 05/24/19 20:39 05/24/19 23:17 Glucose (Fingerstick) 66 mg/dL (70-99) 107 mg/dL (70-99) 163 mg/dL (70-99) 276 mg/dL (70-99) Test 05/25/19 07:35 05/25/19 07:57 White Blood Count 15.4 x10^3/uL (4.0-11.0) Red Blood Count 3.03 x10^6/uL (4.30-5.70) Hemoglobin 8.6 g/dL (13.0-17.5) Hematocrit 26.5 % (39.0-53.0) Mean Corpuscular Volume 88 fL (79-100) Mean Corpuscular Hemoglobin 29 pg (25-35) Mean Corpuscular Hemoglobin Concent 33 g/dL (31-37) Red Cell Distribution Width 16.7 % (11.5-14.5) Platelet Count 270 x10^3/uL (140-400) Sodium Level 142 mmol/L (136-145) Potassium Level 4.4 mmol/L (3.5-5.1) Chloride Level 105 mmol/L (98-107) Carbon Dioxide Level 33 mmol/L (21-32) Anion Gap 4 (6-14) Blood Urea Nitrogen 57 mg/dL (8-26) Creatinine 1.9 mg/dL (0.7-1.3) Estimated GFR (Cockcroft-Gault) 35.2 Glucose Level 279 mg/dL (70-99) Calcium Level 7.5 mg/dL (8.5-10.1) 25-Hydroxy Vitamin D Total 22.4 ng/mL (30-100) Glucose (Fingerstick) 252 mg/dL (70-99) Allergies: Coded Allergies: I S O L A T I O N *CONTACT* (Verified Allergy, Unknown, 12/14/18) ESBL No Known Medication Allergies (Verified Allergy, Unknown, 12/14/18) Medications: Current Medications Medications (Trade) Dose Ordered Sig/Rose Route PRN Reason Start Time Stop Time Status Last Admin Dose Admin Insulin Human Lispro (HumaLOG) 0-9 UNITS TIDWMEALS SQ 05/24/19 12:00 05/25/19 08:09 Potassium Chloride/Water 50 ml @ 50 mls/hr Q1H IV 05/24/19 11:00 05/24/19 12:59 DC 05/24/19 12:02 Potassium Chloride/Water 50 ml @ 50 mls/hr Q1H IV 05/24/19 17:00 05/24/19 18:59 DC 05/24/19 20:17 Imaging: Imaging: CXR Impression: 1. There is again small left pleural effusion and also persistent bibasilar airspace opacity although somewhat decreased interstitial and airspace opacity at the right lung base and also somewhat decreased perihilar opacity likely due to decreased edema. Constellation of findings may be seen with left ventricular failure. Abd US IMPRESSION: 1. Bilateral pleural effusions. 2. Cholelithiasis. 3. Small amount of ascites. 4. No hydronephrosis in the kidneys. 5. Poor visualization of the pancreas. PE: GEN: NAD, eating breakfast HEENT: Atraumatic, PERRL LUNGS: NC 2L HEART: tachycardic ABD: NABS, S/ND/NT EXTREMITY: left BKA SKIN: No rashes, no jaundice NEURO/PSYCH: A & O 3 - speaks Malagasy A/P: A/P: PVD, DM, s/p left BKA CAD, cardiomyopathy, CKD ACD/GENESIS CRC screen - none Cholelithiasis - incidental finding -- Could pursue EGD and colonoscopy as outpt - will review w/ Dr. Bartlett. Add PO iron. 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
[2019-05-25] MEDS: DAPTOmycin (GENERIC) IVPB 320 MG in IV NORMAL SALINE 50ML 50 ML IV SCH (09:57)
[2019-05-25] MEDS: ASCORBIC ACID 500 MG TABLET PO SCH (09:58)
[2019-05-25] MEDS ORDERED: POLYETHYLENE GLYCOL 3350 17 GM PACKET. PO PRN (10:30)
[2019-05-25 10:57] VITALS: BP 123/68
--- NOTE | 2019-05-25 11:24 | PDOC ---
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 The Ejection Fraction is 25-30%. Doppler and Color Flow revealed mild tricuspid regurgitation. The PA pressure was estimated at 27 mmHg. Hypertension Diabetes Urinary retention Diabetic foot infection with a recent surgery done in [place] Subtle erosive change cortical thinning at the medial most margin of the metatarsal shaft portion may be seen with osteomyelitis. PVD SEVERE CKD SEVERE PROTEIN-CALORIC MALNUTRITION Bilateral pleural effusions. Cholelithiasis. Small amount of ascites. No hydronephrosis in the kidneys. History of Present Illness History of Present Illness lives at home with family No complaints S/p ,left BKA [place] stateless but family translates for me slept last night Did not eat much breakfast today NO need for cardiac cath or thoracentesis for now Interval CXR: Impression: 1. There is again small left pleural effusion and also persistent bibasilar airspace opacity although somewhat decreased interstitial and airspace opacity at the right lung base and also somewhat decreased perihilar opacity likely due to decreased edema. Constellation of findings may be seen with left ventricular failure. PLAN: PT OT today to determine dc dispo Dw son who translates Add VIt c for wound healing I did order vit D levels check Vitals Vitals Vital Signs Date Time Temp Pulse Resp B/P (MAP) Pulse Ox O2 Delivery O2 Flow Rate FiO2 05/25/19 10:57 97.9 105 18 123/68 (86) 95 Nasal Cannula 3.0 97.9 Physical Exam Physical Exam GENERAL: Propped up in bed, alert, NAD HEENT: Oral cavity clear, no lesions NECK: Supple. LUNGS: Clear. HEART: S1, S2 regular. ABDOMEN: Soft EXTREMITIES: Foot wounds bandaged SKIN: without rash NEUROLOGIC: Alert, responds appropriately RUE-PICC (05/19) General: Alert, Oriented X3, No acute distress Heart: Regular rate, Normal S1, Normal S2 Lungs: Other (dependent rales) Abdomen: Normal bowel sounds, Soft, No tenderness Extremities: No clubbing, No cyanosis, No edema, Other (extensive tissue loss of the left foot with exposed midfoot bones and tendinous structure, there is surrounding granulation tissue, there is no evidence of purulent drainage, there is no malodor, there is no evidence of deep space abscess, significant portion of the plantar surface of the foot has been excised, there is a superficial wound isolated to the subcutaneous tissue on the dorsal surface of the right foot which is clean and granulating) Skin: Other (same as above) Labs LABS Laboratory Tests Test 05/24/19 11:41 05/24/19 12:22 05/24/19 13:45 05/24/19 16:03 Glucose (Fingerstick) 68 mg/dL (70-99) 107 mg/dL (70-99) 84 mg/dL (70-99) 66 mg/dL (70-99) Test 05/24/19 17:54 05/24/19 20:39 05/24/19 23:17 05/25/19 07:35 Glucose (Fingerstick) 107 mg/dL (70-99) 163 mg/dL (70-99) 276 mg/dL (70-99) White Blood Count 15.4 x10^3/uL (4.0-11.0) Red Blood Count 3.03 x10^6/uL (4.30-5.70) Hemoglobin 8.6 g/dL (13.0-17.5) Hematocrit 26.5 % (39.0-53.0) Mean Corpuscular Volume 88 fL (79-100) Mean Corpuscular Hemoglobin 29 pg (25-35) Mean Corpuscular Hemoglobin Concent 33 g/dL (31-37) Red Cell Distribution Width 16.7 % (11.5-14.5) Platelet Count 270 x10^3/uL (140-400) Sodium Level 142 mmol/L (136-145) Potassium Level 4.4 mmol/L (3.5-5.1) Chloride Level 105 mmol/L (98-107) Carbon Dioxide Level 33 mmol/L (21-32) Anion Gap 4 (6-14) Blood Urea Nitrogen 57 mg/dL (8-26) Creatinine 1.9 mg/dL (0.7-1.3) Estimated GFR (Cockcroft-Gault) 35.2 Glucose Level 279 mg/dL (70-99) Calcium Level 7.5 mg/dL (8.5-10.1) 25-Hydroxy Vitamin D Total 22.4 ng/mL (30-100) Test 05/25/19 07:57 Glucose (Fingerstick) 252 mg/dL (70-99) Review of Systems Review of Systems he denies neg 14 pt for me - limited, stateless speaking Comment Review of Relevant I have reviewed the following items john (where applicable) has been applied. Labs Laboratory Tests Test 05/23/19 11:59 05/23/19 17:39 05/23/19 20:55 05/24/19 07:43 Glucose (Fingerstick) 217 mg/dL (70-99) 268 mg/dL (70-99) 229 mg/dL (70-99) 67 mg/dL (70-99) Test 05/24/19 09:50 05/24/19 11:41 05/24/19 12:22 05/24/19 13:45 Sodium Level 142 mmol/L (136-145) Potassium Level 2.9 mmol/L (3.5-5.1) Chloride Level 102 mmol/L (98-107) Carbon Dioxide Level 34 mmol/L (21-32) Anion Gap 6 (6-14) Blood Urea Nitrogen 60 mg/dL (8-26) Creatinine 1.7 mg/dL (0.7-1.3) Estimated GFR (Cockcroft-Gault) 40.0 Glucose Level 140 mg/dL (70-99) Glucose (Fingerstick) 109 mg/dL (70-99) 68 mg/dL (70-99) 107 mg/dL (70-99) 84 mg/dL (70-99) Calcium Level 7.8 mg/dL (8.5-10.1) Test 05/24/19 16:03 05/24/19 17:54 05/24/19 20:39 05/24/19 23:17 Glucose (Fingerstick) 66 mg/dL (70-99) 107 mg/dL (70-99) 163 mg/dL (70-99) 276 mg/dL (70-99) Test 05/25/19 07:35 05/25/19 07:57 White Blood Count 15.4 x10^3/uL (4.0-11.0) Red Blood Count 3.03 x10^6/uL (4.30-5.70) Hemoglobin 8.6 g/dL (13.0-17.5) Hematocrit 26.5 % (39.0-53.0) Mean Corpuscular Volume 88 fL (79-100) Mean Corpuscular Hemoglobin 29 pg (25-35) Mean Corpuscular Hemoglobin Concent 33 g/dL (31-37) Red Cell Distribution Width 16.7 % (11.5-14.5) Platelet Count 270 x10^3/uL (140-400) Sodium Level 142 mmol/L (136-145) Potassium Level 4.4 mmol/L (3.5-5.1) Chloride Level 105 mmol/L (98-107) Carbon Dioxide Level 33 mmol/L (21-32) Anion Gap 4 (6-14) Blood Urea Nitrogen 57 mg/dL (8-26) Creatinine 1.9 mg/dL (0.7-1.3) Estimated GFR (Cockcroft-Gault) 35.2 Glucose Level 279 mg/dL (70-99) Calcium Level 7.5 mg/dL (8.5-10.1) 25-Hydroxy Vitamin D Total 22.4 ng/mL (30-100) Glucose (Fingerstick) 252 mg/dL (70-99) Laboratory Tests Test 05/24/19 11:41 05/24/19 12:22 05/24/19 13:45 05/24/19 16:03 Glucose (Fingerstick) 68 mg/dL (70-99) 107 mg/dL (70-99) 84 mg/dL (70-99) 66 mg/dL (70-99) Test 05/24/19 17:54 05/24/19 20:39 05/24/19 23:17 05/25/19 07:35 Glucose (Fingerstick) 107 mg/dL (70-99) 163 mg/dL (70-99) 276 mg/dL (70-99) White Blood Count 15.4 x10^3/uL (4.0-11.0) Red Blood Count 3.03 x10^6/uL (4.30-5.70) Hemoglobin 8.6 g/dL (13.0-17.5) Hematocrit 26.5 % (39.0-53.0) Mean Corpuscular Volume 88 fL (79-100) Mean Corpuscular Hemoglobin 29 pg (25-35) Mean Corpuscular Hemoglobin Concent 33 g/dL (31-37) Red Cell Distribution Width 16.7 % (11.5-14.5) Platelet Count 270 x10^3/uL (140-400) Sodium Level 142 mmol/L (136-145) Potassium Level 4.4 mmol/L (3.5-5.1) Chloride Level 105 mmol/L (98-107) Carbon Dioxide Level 33 mmol/L (21-32) Anion Gap 4 (6-14) Blood Urea Nitrogen 57 mg/dL (8-26) Creatinine 1.9 mg/dL (0.7-1.3) Estimated GFR (Cockcroft-Gault) 35.2 Glucose Level 279 mg/dL (70-99) Calcium Level 7.5 mg/dL (8.5-10.1) 25-Hydroxy Vitamin D Total 22.4 ng/mL (30-100) Test 05/25/19 07:57 Glucose (Fingerstick) 252 mg/dL (70-99) Medications Current Medications Sodium Chloride 1,000 ml @ 75 mls/hr [id number] IV Last administered on 05/18/19at 21:44; Start 05/17/19 at 12:00; Stop 05/19/19 at 15:49; Status DC Bumetanide (Bumex) 1 mg [id number] PO Last administered on 05/21/19at 12:07; Start 05/17/19 at 16:00; Stop 05/21/19 at 12:44; Status DC Clopidogrel Bisulfate (Plavix) 75 mg DAILY PO Last administered on 05/25/19at 07:52; Start 05/18/19 at 09:00 Finasteride (Proscar) 5 mg DAILY PO Last administered on 05/25/19at 07:51; Start 05/18/19 at 09:00 Isosorbide Mononitrate (Imdur) 30 mg DAILY PO Last administered on 05/21/19at 12:07; Start 05/18/19 at 09:00; Stop 05/21/19 at 12:44; Status DC Metoprolol Succinate (Toprol Xl) 25 mg DAILY PO Last administered on 05/25/19at 07:51; Start 05/18/19 at 09:00 Tamsulosin HCl (Flomax) 0.4 mg BID PO Last administered on 05/25/19at 07:52; Start 05/17/19 at 21:00 Atorvastatin Calcium (Lipitor) 80 mg QHS PO Last administered on 05/24/19 20:40; Start 05/17/19 at 21:00 Insulin Human Lispro (HumaLOG) 8 units TIDWMEALS SQ Last administered on 05/25/19 08:09; Start 05/17/19 at 12:30 Insulin Glargine (Lantus Syringe) 20 unit QHS SQ ; Start 05/17/19 at 21:00; Stop 05/17/19 at 12:26; Status DC Metolazone (Zaroxolyn) 5 mg DAILY PO Last administered on 05/21/19at 12:06; Start 05/18/19 at 09:00; Stop 05/21/19 at 12:44; Status DC Potassium Chloride (Klor-Con) 20 meq [id number] PO Last administered on 05/25/19 07:52; Start 05/18/19 at 08:00 Insulin Glargine (Lantus Syringe) 20 unit QHS SQ Last administered on 05/24/19at 23:23; Start 05/17/19 at 21:00 Sodium Hypochlorite (Dakin'S 1/4 Strength) 1 yg DAILY TP Last administered on 05/18/19at 12:40; Start 05/17/19 at 13:30; Stop 05/21/19 at 12:37; Status DC Meropenem 500 mg/ Sodium Chloride 50 ml @ 100 mls/hr Q8HRS IV Last administered on 05/25/19 05:04; Start 05/17/19 at 14:00 Linezolid (Zyvox) 600 mg BID PO Last administered on 05/19/19at 08:19; Start 05/17/19 at 14:00; Stop 05/19/19 at 09:36; Status DC Lactobacillus Rhamnosus (Culturelle) 1 cap BID PO Last administered on 05/25/19 07:52; Start 05/18/19 at 21:00 Daptomycin 320 mg/ Sodium Chloride 50 ml @ 100 mls/hr Q24H IV Last administered on 05/25/19at 09:57; Start 05/19/19 at 09:45 Lidocaine HCl (Buffered Lidocaine 1%) 3 ml STK-MED ONCE .ROUTE ; Start 05/19/19 at 10:05; Stop 05/19/19 at 10:05; Status DC Multivitamins (Thera M Plus) 1 tab DAILY PO Last administered on 05/25/19at 07:52; Start 05/19/19 at 11:00 Lidocaine HCl (Buffered Lidocaine 1%) 3 ml 1X ONCE INJ Last administered on 05/19/19at 11:11; Start 05/19/19 at 11:00; Stop 05/19/19 at 11:01; Status DC Insulin Human Lispro (HumaLOG) 2 units 1X ONCE SQ Last administered on 05/20/19at 17:50; Start 05/20/19 at 17:30; Stop 05/20/19 at 17:31; Status DC Aspirin (Ecotrin) 81 mg [id number] PO Last administered on 05/22/19at 08:19; Start 05/21/19 at 12:45; Stop 05/23/19 at 08:40; Status DC Milrinone Lactate/ Dextrose 100 ml @ 2.977 mls/ hr CONT PRN IV SEE I/O RECORD Last administered on 05/24/19at 02:00; Start 05/21/19 at 12:45 Furosemide (Lasix) 40 mg [id number] IVP Last administered on 05/25/19at 07:51; Start 05/21/19 at 14:00 Acetaminophen (Tylenol) 650 mg 1X PRN PRN PO PRE-TRANSFUSION; Start 05/22/19 at 06:30 Diphenhydramine HCl (Benadryl) 25 mg PRN 1X PRN PO PRE-TRANSFUSION; Start 05/22/19 at 06:30 Ondansetron HCl (Zofran) 4 mg PRN Q6HRS PRN IV NAUSEA/VOMITING; Start 05/24/19 at 08:30; Stop 05/25/19 at 08:29; Status DC Fentanyl Citrate (Fentanyl 2ml Vial) 25 mcg PRN Q5MIN PRN IV MILD PAIN 1-3; Start 05/24/19 at 08:30; Stop 05/25/19 at 08:29; Status DC Fentanyl Citrate (Fentanyl 2ml Vial) 50 mcg PRN Q5MIN PRN IV MODERATE TO SEVERE PAIN Last administered on 05/25/19at 07:50; Start 05/24/19 at 08:30; Stop 05/25/19 at 08:29; Status DC Morphine Sulfate (Morphine Sulfate) 1 mg PRN Q10MIN PRN IV SEVERE PAIN 7-10 Last administered on 05/24/19at 18:33; Start 05/24/19 at 08:30; Stop 05/25/19 at 08:29; Status DC Ringer's Solution 1,000 ml @ 30 mls/hr Q24H IV Last administered on 05/24/19at 16:30; Start 05/24/19 at 08:28; Stop 05/24/19 at 20:27; Status DC Hydromorphone HCl (Dilaudid) 0.5 mg PRN Q10MIN PRN IV SEV PAIN, Second choice; Start 05/24/19 at 08:30; Stop 05/25/19 at 08:29; Status DC Prochlorperazine Edisylate (Compazine) 5 mg PACU PRN PRN IV NAUSEA, MRX1; Start 05/24/19 at 08:30; Stop 05/25/19 at 08:29; Status DC Acetaminophen (Tylenol) 500 mg PRN Q6HRS PRN PO MILD PAIN / TEMP; Start 05/24/19 at 09:15 Acetaminophen/ Codeine Phosphate (Tylenol #3) 1 tab PRN Q6HRS PRN PO PAIN; Start 05/24/19 at 09:15 Ondansetron HCl (Zofran) 4 mg PRN Q6HRS PRN IVP NAUSEA/VOMITING; Start 05/24/19 at 09:15 Insulin Human Lispro (HumaLOG) 0-9 UNITS TIDWMEALS SQ Last administered on 05/25/19at 08:09; Start 05/24/19 at 12:00 Dextrose (Dextrose 50%-Water Syringe) 12.5 gm PRN Q15MIN PRN IV SEE COMMENTS Last administered on 05/24/19 11:59; Start 05/24/19 at 09:15 Fentanyl Citrate (Fentanyl 2ml Vial) 50 mcg PRN Q2HR PRN IVP PAIN Last administered on 05/24/19at 22:49; Start 05/24/19 at 09:15 Potassium Chloride/Water 100 ml @ 100 mls/hr Q1H IV ; Start 05/24/19 at 11:00; Stop 05/24/19 at 14:59; Status Cancel Potassium Chloride/Water 50 ml @ 50 mls/hr Q1H IV Last administered on 12/2/19at 12:02; Start 05/24/19 at 11:00; Stop 05/24/19 at 12:59; Status DC Rocuronium Earp (Zemuron) 50 mg STK-MED ONCE .ROUTE ; Start 05/24/19 at 12:40; Stop 05/24/19 at 12:40; Status DC Fentanyl Citrate (Fentanyl 2ml Vial) 100 mcg STK-MED ONCE .ROUTE ; Start 05/24/19 at 12:43; Stop 05/24/19 at 12:44; Status DC Potassium Chloride/Water 50 ml @ 50 mls/hr Q1H IV Last administered on 05/24/19at 20:17; Start 05/24/19 at 17:00; Stop 05/24/19 at 18:59; Status DC Lidocaine HCl (Lidocaine Pf 2% Vial) 5 ml STK-MED ONCE .ROUTE ; Start 05/24/19 at 15:20; Stop 05/24/19 at 15:20; Status DC Etomidate (Amidate) 20 mg STK-MED ONCE IV ; Start 05/24/19 at 15:20; Stop 05/24/19 at 15:20; Status DC Ondansetron HCl (Zofran) 4 mg STK-MED ONCE .ROUTE ; Start 05/24/19 at 16:03; Stop 05/24/19 at 16:03; Status DC Sevoflurane (Ultane) 30 ml STK-MED ONCE IH ; Start 05/24/19 at 16:03; Stop 05/24/19 at 16:03; Status DC Dextrose (Dextrose 50%-Water Syringe) 25 gm STK-MED ONCE IV ; Start 05/24/19 at 16:22; Stop 05/24/19 at 16:22; Status DC Phenylephrine HCl (PHENYLEPHRINE in 0.9% NACL PF) 1 mg STK-MED ONCE IV ; Start 05/24/19 at 16:48; Stop 05/24/19 at 16:48; Status DC Morphine Sulfate (Morphine Sulfate) 2 mg STK-MED ONCE .ROUTE ; Start 05/24/19 at 18:18; Stop 05/24/19 at 18:18; Status DC Oxycodone/ Acetaminophen (Percocet 5/325) 1 tab PRN Q4HRS PRN PO PAIN; Start 05/25/19 at 08:30 Ascorbic Acid (Vitamin C) 500 mg DAILY PO Last administered on 05/25/19at 09:58; Start 05/25/19 at 09:00 Polyethylene Glycol (miraLAX PACKET) 17 gm DAILY PO ; Start 05/25/19 at 10:45 Polyethylene Glycol (miraLAX PACKET) 17 gm PRN DAILY PRN PO CONSTIPATION; Start 05/25/19 at 10:30 Ferrous Sulfate (Feosol) 325 mg BIDWMEALS PO ; Start 05/25/19 at 17:00 Active Scripts Active Reported [e] Metolazone 5 Mg Tablet 5 Mg PO DAILY Clopidogrel (Clopidogrel Bisulfate) 75 Mg Tablet 1 Tab PO DAILY Bumetanide 1 Mg Tablet 1 Tab PO BID Tresiba (Insulin Degludec) 100 Unit/1 Ml Vial 20 Unit SQ HS Novolog (Insulin Aspart) 100 Unit/1 Ml Cartridge 8 Unit SQ TIDWMEALS Potassium Chloride 20 Meq Tablet.er 1 Tab PO DAILY 30 Days Finasteride 5 Mg Tablet 5 Mg PO DAILY Metoprolol Succinate ( Xl ) (Metoprolol Succinate) 25 Mg Tab.er.24h 25 Mg PO DAILY Isosorbide Mononitrate Er (Isosorbide Mononitrate) 30 Mg Tab.er.24h 30 Mg PO DAILY Atorvastatin Calcium 80 Mg Tablet 80 Mg PO DAILY Flomax (Tamsulosin Hcl) 0.4 Mg Cap.er.24h 0.4 Mg PO BID Vitals/I & O Vital Sign - Last 24 Hours 05/24/19 05/24/19 05/24/19 05/24/19 13:41 17:04 17:04 17:19 Temp 98.1 97.3 98.1 97.3 Pulse 90 71 90 Resp 20 20 20 B/P (MAP) 137/75 125/71 160/64 Pulse Ox 97 99 98 O2 Delivery Nasal Cannula Mask Simple Mask Simple Mask O2 Flow Rate 2.0 10 10 10 05/24/19 05/24/19 05/24/19 05/24/19 17:34 17:52 18:07 18:22 Temp 97.2 97.0 97.2 97.0 Pulse 90 93 95 95 Resp 22 20 20 18 B/P (MAP) 125/78 140/77 129/72 144/64 Pulse Ox 91 97 98 98 O2 Delivery Simple Mask Nasal Cannula Nasal Cannula Nasal Cannula O2 Flow Rate 10 2 2 2 05/24/19 05/24/19 05/24/19 05/24/19 18:23 18:30 18:33 18:40 Resp 20 20 B/P (MAP) 146/81 (102) Pulse Ox 99 99 O2 Delivery Nasal Cannula Nasal Cannula Nasal Cannula O2 Flow Rate 2.0 2 2.0 05/24/19 05/24/19 05/24/19 05/24/19 18:53 19:03 19:45 20:00 Temp 97.5 97.5 Pulse 95 Resp 18 18 20 B/P (MAP) 146/89 (108) Pulse Ox 99 99 100 O2 Delivery Nasal Cannula Nasal Cannula Nasal Cannula Nasal Cannula O2 Flow Rate 2.0 2.0 2.0 2.0 05/24/19 05/24/19 05/24/19 05/25/19 22:49 23:00 23:19 03:30 Temp 99.0 98.0 99.0 98.0 Pulse 76 114 Resp 18 18 18 20 B/P (MAP) 127/61 (83) 131/71 (91) Pulse Ox 100 99 100 98 O2 Delivery Nasal Cannula Nasal Cannula Nasal Cannula Nasal Cannula O2 Flow Rate 2.0 2.0 2.0 2.0 05/25/19 05/25/19 05/25/19 05/25/19 07:00 07:50 07:51 08:00 Temp 98.9 98.9 Pulse 117 117 Resp 18 18 B/P (MAP) 136/80 (98) 136/80 Pulse Ox 92 92 O2 Delivery Nasal Cannula Nasal Cannula Nasal Cannula O2 Flow Rate 2.0 2.0 2.0 05/25/19 10:57 Temp 97.9 97.9 Pulse 105 Resp 18 B/P (MAP) 123/68 (86) Pulse Ox 95 O2 Delivery Nasal Cannula O2 Flow Rate 3.0 Intake and Output 05/24/19 05/24/19 05/25/19 15:00 23:00 07:00 Intake Total 100 ml 100 ml 300 ml Output Total 350 ml 750 ml 600 ml Balance -250 ml -650 ml -300 ml DEDE ARREAGA MD May 25, 2019 11:24
--- NOTE | 2019-05-25 12:23 | PDOC ---
ANICETO BRAGG [employer]ER[employer] TITLE EXAMINER 05/25/19 1223: CARDIO Progress Notes Date and Time Date of Service 05/25/2019 Time of Evaluation 1220 Subjective Subjective: No Chest Pain, No shortness of breath, No Palpitations Vitals Vitals Vital Signs Date Time Temp Pulse Resp B/P (MAP) Pulse Ox O2 Delivery O2 Flow Rate FiO2 05/25/19 10:57 97.9 105 18 123/68 (86) 95 Nasal Cannula 3.0 97.9 Weight Weight [ ] Input and Output Intake and Output Intake and Output 05/25/19 07:00 Intake Total 500 ml Output Total 1700 ml Balance -1200 ml Intake Oral 200 ml IV Total 300 ml Output Urine Total 1600 ml Estimated Blood Loss 100 ml # Voids 2 Laboratory Labs Laboratory Tests Test 05/24/19 12:22 05/24/19 13:45 05/24/19 16:03 05/24/19 17:54 Glucose (Fingerstick) 107 mg/dL (70-99) 84 mg/dL (70-99) 66 mg/dL (70-99) 107 mg/dL (70-99) Test 05/24/19 20:39 05/24/19 23:17 05/25/19 07:35 05/25/19 07:57 Glucose (Fingerstick) 163 mg/dL (70-99) 276 mg/dL (70-99) 252 mg/dL (70-99) White Blood Count 15.4 x10^3/uL (4.0-11.0) Red Blood Count 3.03 x10^6/uL (4.30-5.70) Hemoglobin 8.6 g/dL (13.0-17.5) Hematocrit 26.5 % (39.0-53.0) Mean Corpuscular Volume 88 fL (79-100) Mean Corpuscular Hemoglobin 29 pg (25-35) Mean Corpuscular Hemoglobin Concent 33 g/dL (31-37) Red Cell Distribution Width 16.7 % (11.5-14.5) Platelet Count 270 x10^3/uL (140-400) Sodium Level 142 mmol/L (136-145) Potassium Level 4.4 mmol/L (3.5-5.1) Chloride Level 105 mmol/L (98-107) Carbon Dioxide Level 33 mmol/L (21-32) Anion Gap 4 (6-14) Blood Urea Nitrogen 57 mg/dL (8-26) Creatinine 1.9 mg/dL (0.7-1.3) Estimated GFR (Cockcroft-Gault) 35.2 Glucose Level 279 mg/dL (70-99) Calcium Level 7.5 mg/dL (8.5-10.1) 25-Hydroxy Vitamin D Total 22.4 ng/mL (30-100) Test 05/25/19 11:37 Glucose (Fingerstick) 162 mg/dL (70-99) Physical Exam HEENT: Neck Supple W Full Motion Chest: Symmetric LUNGS: Other (diminished bases) Heart: RRR (SR) Abdomen: Soft N/T Extremities: No Edema, No Calf Tenderness Neurology: alert, oriented, follow commands Assessment Assessment 1. Acute on chronic systolic and diastolic CHF: compensated 2. HTN - controlled 3. Anemia - stable at 8.6, post transfusion 4. Severe ICM: EF 20-25% 5. Severe PAD with diabetic ulcers: S/P LBKA POD#1 per vascular 6. Reactive sinus tach Recommendations 1. Baseline wt about 76 Kg. May need milrinone continuation moving forward. Will switch to bumex PO tomorrow. Consider for LTAC. 2. Increase toprol 3. Poor candidate for LVAD. Entresto is a consideration depending on renal function; 4. Secondary prevention measures. ZEFERINO PISANO MD 05/26/19 0749: CARDIO Progress Notes Plan Plan Late entry for 05/25/2019. Patient seen and examined. Agree with above nurse stephanie alng note. I tried to convey to the patient through his son regarding his cardiomyopathy and poor long-term prognosis. It appears that the family is still trying to withhold/protect the patient from the overall long-term poor prognosis. We will try to attempt a family meeting prior to discharge if their schedule allows. Continue diuresis as tolerated. Supportive care. ANICETO BRAGG APRN May 25, 2019 12:23 ZEFERINO PISANO MD May 26, 2019 07:49
[2019-05-25] MEDS: POLYETHYLENE GLYCOL 3350 17 GM PACKET. PO SCH (12:40)
--- NOTE | 2019-05-25 12:43 | NUR ---
SS following up with discharge planning. Pt currently on milrinone drip and post op LBKA. SS met with pt and pt's family in room. Pt's family requesting referral to [facility], ; fax [phone]. SS phoned and faxed referral. SS will await acceptance decision and will proceed accordingly.
[2019-05-25] MEDS: MILRINONE 20MG/100ML PREMIX 100 ML IV PRN (13:35)
[2019-05-25 14:10] LABS: KAPPA FREE 139.9 mg/L (3.3-19.4); KAPPA LAMBDA RATIO 1.28 (0.26-1.65)
[2019-05-25] MEDS ORDERED: METOPROLOL SUCC 24HR ER 25 MG TAB.ER.24H. PO ONE (14:30)
[2019-05-25 15:00] VITALS: BP 140/77
--- NOTE | 2019-05-25 15:01 | NUR ---
SS following up with discharge planning. Pt accepted at [facility] when stable for discharge. SS will continue to follow for discharge planning.
--- NOTE | 2019-05-25 16:48 | NUR ---
Wound Care Wound care follow up for bilateral DFU's. Pt has had a L BKA, dressing still in place after surgery. Right dorsal foot cleansed, and redressed with hydrogel, Medihoney, abd and Kerlix. Recommend to change every 2-3 days. No other wounds noted on full skin inspection. WC will continue to follow for possible changes.
[2019-05-25] MEDS: CHOLECALCIFEROL (VITAMIN D3) 5,000 UNIT CAPSULE PO SCH (17:28)
[2019-05-25] MEDS: FERROUS SULFATE 325 MG TABLET. PO SCH (17:28)
[2019-05-25 19:25] VITALS: BP 135/75
[2019-05-25] MEDS: ATORVASTATIN CALCIUM 40 MG TABLET. PO SCH (20:21)
[2019-05-25] MEDS: INSULIN GLARGINE SYRINGE. SQ SCH (21:00)
[2019-05-25 22:45] VITALS: BP 126/73
[2019-05-26 02:50] VITALS: BP 115/67
[2019-05-26] MEDS: MEROPENEM 500 MG in IV NORMAL SALINE 50ML 50 ML IV SCH ×2 (05:14→14:10)
[2019-05-26 05:44] LABS: BASO # 0.1 x10^3/uL (0.0-0.2); BASO % 0 % (0-3); EOS # 0.1 x10^3/uL (0.0-0.7); EOS % 1 % (0-3); HEMATOCRIT 26.8 % (39.0-53.0); HEMOGLOBIN 8.8 g/dL (13.0-17.5); LYMPH % 7 % (24-48); MEAN CORPUSCULAR HEMOGLOBIN 28 pg (25-35); MEAN CORPUSCULAR HGB CONC 33 g/dL (31-37); MEAN CORPUSCULAR VOLUME 87 fL (79-100); MONO # 0.9 x10^3/uL (0.0-1.1); MONO % 7 % (0-9); NEUT # 11.1 x10^3/uL (1.8-7.7); NEUT % 85 % (31-73); PLATELET COUNT 282 x10^3/uL (140-400); RED CELL DISTRIBUTION WIDTH 16.7 % (11.5-14.5); WHITE BLOOD COUNT 13.2 x10^3/uL (4.0-11.0)
[2019-05-26 06:04] LABS: CREATININE 1.6 mg/dL (0.7-1.3); GFR 42.9; MAGNESIUM 2.3 mg/dL (1.8-2.4); POTASSIUM 4.3 mmol/L (3.5-5.1)
[2019-05-26 07:25] VITALS: BP 133/71
[2019-05-26] MEDS: INSULIN LISPRO 300 UNITS/3 ML VIAL. SQ SCH ×4 (08:00→14:09)
--- NOTE | 2019-05-26 08:36 | PDOC ---
Infectious Disease Note Subjective: Subjective Comfortable,postop pain is under control no fevers last 24 hrs d/w son at bedside no new concerns no f/c/n/v/d/sob Vital Signs: Vital Signs Vital Signs Date Time Temp Pulse Resp B/P (MAP) Pulse Ox O2 Delivery O2 Flow Rate FiO2 05/26/19 07:25 98.0 102 20 133/71 (91) 96 Nasal Cannula 2.0 98.0 Physical Exam: PHYSICAL EXAM GENERAL: Propped up in bed, alert, NAD HEENT: Oral cavity clear, no lesions NECK: Supple. LUNGS: Clear. HEART: S1, S2 regular. ABDOMEN: Soft EXTREMITIES: Foot wounds bandaged SKIN: without rash NEUROLOGIC: Alert, responds appropriately RUE-PICC (05/19) Medications: Inpatient Meds: Current Medications Medications (Trade) Dose Ordered Sig/Rose Start Time Stop Time Status Last Admin Dose Admin Acetaminophen (Tylenol) 500 mg PRN Q6HRS PRN 05/24/19 09:15 Acetaminophen/ Codeine Phosphate (Tylenol #3) 1 tab PRN Q6HRS PRN 05/24/19 09:15 Ascorbic Acid (Vitamin C) 500 mg DAILY 05/25/19 09:00 05/25/19 09:58 500 MG Aspirin (Ecotrin) 81 mg [id number] 05/21/19 12:45 05/23/19 08:40 DC 05/22/19 08:19 81 MG Atorvastatin Calcium (Lipitor) 80 mg QHS 05/17/19 21:00 05/25/19 20:21 80 MG Bumetanide (Bumex) 1 mg [id number] 05/17/19 16:00 05/21/19 12:44 DC 05/21/19 12:07 1 MG Clopidogrel Bisulfate (Plavix) 75 mg DAILY 05/18/19 09:00 05/25/19 07:52 75 MG Daptomycin 320 mg/ Sodium Chloride 50 ml @ 100 mls/hr Q24H 05/19/19 09:45 05/25/19 09:57 100 MLS/HR Dextrose (Dextrose 50%-Water Syringe) 25 gm STK-MED ONCE 05/24/19 16:22 05/24/19 16:22 DC Diphenhydramine HCl (Benadryl) 25 mg PRN 1X PRN 05/22/19 06:30 05/25/19 15:03 DC Etomidate (Amidate) 20 mg STK-MED ONCE 05/24/19 15:20 05/24/19 15:20 DC Fentanyl Citrate (Fentanyl 2ml Vial) 100 mcg STK-MED ONCE 05/24/19 12:43 05/24/19 12:44 DC Ferrous Sulfate (Feosol) 325 mg BIDWMEALS 05/25/19 17:00 05/25/19 17:28 325 MG Finasteride (Proscar) 5 mg DAILY 05/18/19 09:00 05/25/19 07:51 5 MG Furosemide (Lasix) 40 mg [id number] 05/21/19 14:00 05/25/19 13:38 40 MG Hydromorphone HCl (Dilaudid) 0.5 mg PRN Q10MIN PRN 05/24/19 08:30 05/25/19 08:29 DC Insulin Glargine (Lantus Syringe) 20 unit QHS 05/17/19 21:00 05/24/19 23:23 20 UNIT Insulin Human Lispro (HumaLOG) 0-9 UNITS TIDWMEALS 05/24/19 12:00 05/25/19 17:26 4 UNITS Isosorbide Mononitrate (Imdur) 30 mg DAILY 05/18/19 09:00 05/21/19 12:44 DC 05/21/19 12:07 30 MG Lactobacillus Rhamnosus (Culturelle) 1 cap BID 05/18/19 21:00 05/25/19 20:21 1 CAP Lidocaine HCl (Buffered Lidocaine 1%) 3 ml 1X ONCE 05/19/19 11:00 05/19/19 11:01 DC 05/19/19 11:11 5 ML Lidocaine HCl (Lidocaine Pf 2% Vial) 5 ml STK-MED ONCE 05/24/19 15:20 05/24/19 15:20 DC Linezolid (Zyvox) 600 mg BID 05/17/19 14:00 05/19/19 09:36 DC 05/19/19 08:19 600 MG Meropenem 500 mg/ Sodium Chloride 50 ml @ 100 mls/hr Q8HRS 05/17/19 14:00 05/26/19 05:14 100 MLS/HR Metolazone (Zaroxolyn) 5 mg DAILY 05/18/19 09:00 05/21/19 12:44 DC 05/21/19 12:06 5 MG Metoprolol Succinate (Toprol Xl) 12.5 mg 1X ONCE 05/25/19 14:30 05/25/19 14:31 DC 05/25/19 15:21 12.5 MG Milrinone Lactate/ Dextrose 100 ml @ 2.977 mls/ hr CONT PRN 05/21/19 12:45 05/25/19 13:35 2.977 MLS/HR Morphine Sulfate (Morphine Sulfate) 2 mg STK-MED ONCE 05/24/19 18:18 05/24/19 18:18 DC Multivitamins (Thera M Plus) 1 tab DAILY 05/19/19 11:00 05/25/19 07:52 1 TAB Ondansetron HCl (Zofran) 4 mg STK-MED ONCE 05/24/19 16:03 05/24/19 16:03 DC Oxycodone/ Acetaminophen (Percocet 5/325) 1 tab PRN Q4HRS PRN 05/25/19 08:30 05/25/19 20:24 1 TAB Phenylephrine HCl (PHENYLEPHRINE in 0.9% NACL PF) 1 mg STK-MED ONCE 05/24/19 16:48 05/24/19 16:48 DC Polyethylene Glycol (miraLAX PACKET) 17 gm PRN DAILY PRN 05/25/19 10:30 Potassium Chloride/Water 50 ml @ 50 mls/hr Q1H 05/24/19 17:00 05/24/19 18:59 DC 05/24/19 20:17 50 MLS/HR Potassium Chloride (Klor-Con) 20 meq DAILYWBKFT 05/18/19 08:00 05/25/19 07:52 20 MEQ Prochlorperazine Edisylate (Compazine) 5 mg PACU PRN PRN 05/24/19 08:30 05/25/19 08:29 DC Ringer's Solution 1,000 ml @ 30 mls/hr Q24H 05/24/19 08:28 05/24/19 20:27 DC 05/24/19 16:30 30 MLS/HR Rocuronium [place] (Zemuron) 50 mg STK-MED ONCE 05/24/19 12:40 05/24/19 12:40 DC Sevoflurane (Ultane) 30 ml STK-MED ONCE 05/24/19 16:03 05/24/19 16:03 DC Sodium Hypochlorite (Dakin'S 06/26 Strength) 1 yg DAILY 05/17/19 13:30 05/21/19 12:37 DC 05/18/19 12:40 1 YG Sodium Chloride 1,000 ml @ 75 mls/hr [id number] 05/17/19 12:00 05/19/19 15:49 DC 05/18/19 21:44 75 MLS/HR Tamsulosin HCl (Flomax) 0.4 mg BID 05/17/19 21:00 05/25/19 20:21 0.4 MG Vitamin D (Vitamin D3) 5,000 unit DAILY 05/25/19 16:15 05/25/19 17:28 5,000 UNIT Labs: Lab Laboratory Tests Test 05/25/19 11:37 05/25/19 16:38 05/25/19 20:19 05/26/19 00:57 Glucose (Fingerstick) 162 mg/dL (70-99) 182 mg/dL (70-99) 86 mg/dL (70-99) 107 mg/dL (70-99) Test 05/26/19 05:25 05/26/19 05:30 05/26/19 07:28 White Blood Count 13.2 x10^3/uL (4.0-11.0) Red Blood Count 3.10 x10^6/uL (4.30-5.70) Hemoglobin 8.8 g/dL (13.0-17.5) Hematocrit 26.8 % (39.0-53.0) Mean Corpuscular Volume 87 fL (79-100) Mean Corpuscular Hemoglobin 28 pg (25-35) Mean Corpuscular Hemoglobin Concent 33 g/dL (31-37) Red Cell Distribution Width 16.7 % (11.5-14.5) Platelet Count 282 x10^3/uL (140-400) Neutrophils (%) (Auto) 85 % (31-73) Lymphocytes (%) (Auto) 7 % (24-48) Monocytes (%) (Auto) 7 % (0-9) Eosinophils (%) (Auto) 1 % (0-3) Basophils (%) (Auto) 0 % (0-3) Neutrophils # (Auto) 11.1 x10^3/uL (1.8-7.7) Lymphocytes # (Auto) 1.0 x10^3/uL (1.0-4.8) Monocytes # (Auto) 0.9 x10^3/uL (0.0-1.1) Eosinophils # (Auto) 0.1 x10^3/uL (0.0-0.7) Basophils # (Auto) 0.1 x10^3/uL (0.0-0.2) Sodium Level 143 mmol/L (136-145) Potassium Level 4.3 mmol/L (3.5-5.1) Chloride Level 104 mmol/L (98-107) Carbon Dioxide Level 34 mmol/L (21-32) Anion Gap 5 (6-14) Blood Urea Nitrogen 58 mg/dL (8-26) Creatinine 1.6 mg/dL (0.7-1.3) Estimated GFR (Cockcroft-Gault) 42.9 Glucose Level 133 mg/dL (70-99) Calcium Level 8.0 mg/dL (8.5-10.1) Magnesium Level 2.3 mg/dL (1.8-2.4) Glucose (Fingerstick) 124 mg/dL (70-99) Objective: Assessment: Fever resolved Left foot diabetic foot infection to tendon an bone 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 Hypertension. Coronary artery disease. Ischemic cardiomyopathy h/o ESBL Plan: Plan of Care cont Dapto and meropenem for now,will deescalate soon Monitor for abx toxicities Probiotics Local wound care as directed D/W daughter ANDREAS GIL MD May 26, 2019 08:36
--- NOTE | 2019-05-26 08:57 | SNU/HH DC ---
DISCHARGE ORDERS DISCHARGE INFORMATION: DISCHARGE DATE: May 26, 2019 CONDITION ON DISCHARGE: Stable CODE STATUS: Code Status: Full ASSISTED: SNF STAY <30 DAYS: Yes HOSPICE: HOSPICE: No HOSPICE EVAL & TREAT: No LTAC: ADMIT TO LTAC: Yes POST DISCHARGE ORDERS: ACTIVITY ORDERS: Activity as tolerated WEIGHT BEARING STATUS: As tolerated BATHING ORDERS: Shower-keep dressing dry DIET AFTER DISCHARGE: ADA WOUND/INCISION CARE: No wound care needed OTHER WOUND INSTRUCTIONS: follow up wound care clinic CHECKS AFTER DISCHARGE: CHECKS AFTER DISCHARGE: Check blood press - daily, Check blood sugar, ac/hs, Check your Temp as needed FOLLOW-UP: PHYSICIAN FOLLOW-UP: Wound care clinic for further treatment. ADDITIONAL FOLLOW-UP: Primary Care Physician in 1-2 weeks. TREATMENT/EQUIPMENT ORDERS: ADAPTIVE EQUIPMENT NEEDED: Cane Physical Therapy For: Evalulation/Treatment Occupational Therapy For: Evaluation/Treatment Speech Language Pathology For: Evaluation/Treatment DISCHARGE MEDICATIONS: Home Meds Reported Medications [e] No Conflict Check 05/17/19 Metolazone (METOLAZONE) 5 Mg Tablet, 5 MG PO DAILY for ppx, #30 TAB 0 Refills 05/17/19 Clopidogrel Bisulfate (CLOPIDOGREL) 75 Mg Tablet, 1 TAB PO DAILY for PPX, #90 TAB 1 Refill 05/17/19 Bumetanide (BUMETANIDE) 1 Mg Tablet, 1 TAB PO BID for CHF, #90 TAB 1 Refill 05/17/19 Insulin Degludec (Tresiba) 100 Unit/1 Ml Vial, 20 UNIT SQ HS for DM, EACH 05/17/19 Insulin Aspart (NOVOLOG) 100 Unit/1 Ml Cartridge, 8 UNIT SQ TIDWMEALS for DM, EACH 05/17/19 Potassium Chloride (POTASSIUM CHLORIDE) 20 Meq Tablet.er, 1 TAB PO DAILY for supplement for 30 Days, #30 TAB 0 Refills 05/17/19 Finasteride (FINASTERIDE) 5 Mg Tablet, 5 MG PO DAILY for heart health, TAB 12/08/18 Metoprolol Succinate (METOPROLOL SUCCINATE ( XL )) 25 Mg Tab.er.24h, 25 MG PO DAILY for FOR HYPERTENSION, #30 TAB 0 Refills 12/08/18 Isosorbide Mononitrate (ISOSORBIDE MONONITRATE ER) 30 Mg Tab.er.24h, 30 MG PO DAILY for heart health, TAB.SR 12/08/18 Atorvastatin Calcium (ATORVASTATIN CALCIUM) 80 Mg Tablet, 80 MG PO DAILY for FOR CHOLESTEROL, #30 TAB 0 Refills 12/08/18 Tamsulosin Hcl (FLOMAX) 0.4 Mg Cap.er.24h, 0.4 MG PO BID for prostate , TAB 12/08/18 DEDE ARREAGA MD May 26, 2019 08:57
[2019-05-26] MEDS: METOPROLOL SUCC 24HR ER 25 MG TAB.ER.24H. PO SCH (08:58)
[2019-05-26] MEDS: TAMSULOSIN 0.4 MG CAP.ER.24H. PO SCH (08:58)
[2019-05-26] MEDS: LACTOBACILLUS RHAMNOSUS GG 1 CAPSULE. PO SCH (08:58)
[2019-05-26] MEDS: CHOLECALCIFEROL (VITAMIN D3) 5,000 UNIT CAPSULE PO SCH (08:58)
[2019-05-26] MEDS: FINASTERIDE 5 MG TABLET. PO SCH (08:58)
[2019-05-26] MEDS: CLOPIDOGREL BISULFATE 75 MG TABLET PO SCH (08:58)
[2019-05-26] MEDS: MULTIVITAMIN with MINERAL TABLET. PO SCH (08:58)
[2019-05-26] MEDS: FERROUS SULFATE 325 MG TABLET. PO SCH (08:58)
[2019-05-26] MEDS: POTASSIUM CHLORIDE 20 MEQ TABLET.ER. PO SCH (08:59)
[2019-05-26] MEDS: ASCORBIC ACID 500 MG TABLET PO SCH (08:59)
[2019-05-26] MEDS: POLYETHYLENE GLYCOL 3350 17 GM PACKET. PO SCH (09:02)
[2019-05-26] MEDS: FUROSEMIDE 40 MG/4 ML VIAL. IVP SCH (09:03)
--- NOTE | 2019-05-26 09:26 | PDOC ---
PULMONARY PROGRESS NOTES Subjective PT NOT MORE SOA Vitals Vital Signs Date Time Temp Pulse Resp B/P (MAP) Pulse Ox O2 Delivery O2 Flow Rate FiO2 05/26/19 08:58 102 133/71 05/26/19 08:00 Nasal Cannula 3.0 05/26/19 07:25 98.0 20 96 98.0 ROS: No Nausea, No Chest Pain, No Abdominal Pain, No Increase Cough General: Alert, No acute distress Lungs: Other (dependent rales) Cardiovascular: S1, S2 Abdomen: Soft, Non-tender Neuro Exam: Alert, Oriented, Normal Speech, No Focal Findings Extremities: Other (left foot in dressing) Skin: Other (pretibial edema, foot bandaged) Labs Laboratory Tests Test 05/24/19 09:50 05/24/19 11:41 05/24/19 12:22 05/24/19 13:45 Sodium Level 142 mmol/L (136-145) Potassium Level 2.9 mmol/L (3.5-5.1) Chloride Level 102 mmol/L (98-107) Carbon Dioxide Level 34 mmol/L (21-32) Anion Gap 6 (6-14) Blood Urea Nitrogen 60 mg/dL (8-26) Creatinine 1.7 mg/dL (0.7-1.3) Estimated GFR (Cockcroft-Gault) 40.0 Glucose Level 140 mg/dL (70-99) Glucose (Fingerstick) 109 mg/dL (70-99) 68 mg/dL (70-99) 107 mg/dL (70-99) 84 mg/dL (70-99) Calcium Level 7.8 mg/dL (8.5-10.1) Immunoglobulin [place]/Lambda Ratio 1.28 (0.26-1.65) Free [place] Light Chains 139.9 mg/L (3.3-19.4) Free [place] Light Chains 109.0 mg/L (5.7-26.3) Test 05/24/19 16:03 05/24/19 17:54 05/24/19 20:39 05/24/19 23:17 Glucose (Fingerstick) 66 mg/dL (70-99) 107 mg/dL (70-99) 163 mg/dL (70-99) 276 mg/dL (70-99) Test 05/25/19 07:35 05/25/19 07:57 05/25/19 11:37 05/25/19 16:38 White Blood Count 15.4 x10^3/uL (4.0-11.0) Red Blood Count 3.03 x10^6/uL (4.30-5.70) Hemoglobin 8.6 g/dL (13.0-17.5) Hematocrit 26.5 % (39.0-53.0) Mean Corpuscular Volume 88 fL (79-100) Mean Corpuscular Hemoglobin 29 pg (25-35) Mean Corpuscular Hemoglobin Concent 33 g/dL (31-37) Red Cell Distribution Width 16.7 % (11.5-14.5) Platelet Count 270 x10^3/uL (140-400) Sodium Level 142 mmol/L (136-145) Potassium Level 4.4 mmol/L (3.5-5.1) Chloride Level 105 mmol/L (98-107) Carbon Dioxide Level 33 mmol/L (21-32) Anion Gap 4 (6-14) Blood Urea Nitrogen 57 mg/dL (8-26) Creatinine 1.9 mg/dL (0.7-1.3) Estimated GFR (Cockcroft-Gault) 35.2 Glucose Level 279 mg/dL (70-99) Calcium Level 7.5 mg/dL (8.5-10.1) 25-Hydroxy Vitamin D Total 22.4 ng/mL (30-100) Glucose (Fingerstick) 252 mg/dL (70-99) 162 mg/dL (70-99) 182 mg/dL (70-99) Test 05/25/19 20:19 05/26/19 00:57 05/26/19 05:25 05/26/19 05:30 Glucose (Fingerstick) 86 mg/dL (70-99) 107 mg/dL (70-99) White Blood Count 13.2 x10^3/uL (4.0-11.0) Red Blood Count 3.10 x10^6/uL (4.30-5.70) Hemoglobin 8.8 g/dL (13.0-17.5) Hematocrit 26.8 % (39.0-53.0) Mean Corpuscular Volume 87 fL (79-100) Mean Corpuscular Hemoglobin 28 pg (25-35) Mean Corpuscular Hemoglobin Concent 33 g/dL (31-37) Red Cell Distribution Width 16.7 % (11.5-14.5) Platelet Count 282 x10^3/uL (140-400) Neutrophils (%) (Auto) 85 % (31-73) Lymphocytes (%) (Auto) 7 % (24-48) Monocytes (%) (Auto) 7 % (0-9) Eosinophils (%) (Auto) 1 % (0-3) Basophils (%) (Auto) 0 % (0-3) Neutrophils # (Auto) 11.1 x10^3/uL (1.8-7.7) Lymphocytes # (Auto) 1.0 x10^3/uL (1.0-4.8) Monocytes # (Auto) 0.9 x10^3/uL (0.0-1.1) Eosinophils # (Auto) 0.1 x10^3/uL (0.0-0.7) Basophils # (Auto) 0.1 x10^3/uL (0.0-0.2) Sodium Level 143 mmol/L (136-145) Potassium Level 4.3 mmol/L (3.5-5.1) Chloride Level 104 mmol/L (98-107) Carbon Dioxide Level 34 mmol/L (21-32) Anion Gap 5 (6-14) Blood Urea Nitrogen 58 mg/dL (8-26) Creatinine 1.6 mg/dL (0.7-1.3) Estimated GFR (Cockcroft-Gault) 42.9 Glucose Level 133 mg/dL (70-99) Calcium Level 8.0 mg/dL (8.5-10.1) Magnesium Level 2.3 mg/dL (1.8-2.4) Test 05/26/19 07:28 Glucose (Fingerstick) 124 mg/dL (70-99) Laboratory Tests Test 05/25/19 11:37 05/25/19 16:38 05/25/19 20:19 05/26/19 00:57 Glucose (Fingerstick) 162 mg/dL (70-99) 182 mg/dL (70-99) 86 mg/dL (70-99) 107 mg/dL (70-99) Test 05/26/19 05:25 05/26/19 05:30 05/26/19 07:28 White Blood Count 13.2 x10^3/uL (4.0-11.0) Red Blood Count 3.10 x10^6/uL (4.30-5.70) Hemoglobin 8.8 g/dL (13.0-17.5) Hematocrit 26.8 % (39.0-53.0) Mean Corpuscular Volume 87 fL (79-100) Mean Corpuscular Hemoglobin 28 pg (25-35) Mean Corpuscular Hemoglobin Concent 33 g/dL (31-37) Red Cell Distribution Width 16.7 % (11.5-14.5) Platelet Count 282 x10^3/uL (140-400) Neutrophils (%) (Auto) 85 % (31-73) Lymphocytes (%) (Auto) 7 % (24-48) Monocytes (%) (Auto) 7 % (0-9) Eosinophils (%) (Auto) 1 % (0-3) Basophils (%) (Auto) 0 % (0-3) Neutrophils # (Auto) 11.1 x10^3/uL (1.8-7.7) Lymphocytes # (Auto) 1.0 x10^3/uL (1.0-4.8) Monocytes # (Auto) 0.9 x10^3/uL (0.0-1.1) Eosinophils # (Auto) 0.1 x10^3/uL (0.0-0.7) Basophils # (Auto) 0.1 x10^3/uL (0.0-0.2) Sodium Level 143 mmol/L (136-145) Potassium Level 4.3 mmol/L (3.5-5.1) Chloride Level 104 mmol/L (98-107) Carbon Dioxide Level 34 mmol/L (21-32) Anion Gap 5 (6-14) Blood Urea Nitrogen 58 mg/dL (8-26) Creatinine 1.6 mg/dL (0.7-1.3) Estimated GFR (Cockcroft-Gault) 42.9 Glucose Level 133 mg/dL (70-99) Calcium Level 8.0 mg/dL (8.5-10.1) Magnesium Level 2.3 mg/dL (1.8-2.4) Glucose (Fingerstick) 124 mg/dL (70-99) Medications Active Scripts Medications Dose Route/Sig Max Daily Dose Days Date Category [e] 05/17/19 Reported Metolazone 5 Mg Tablet 5 Mg PO DAILY 05/17/19 Reported Clopidogrel (Clopidogrel Bisulfate) 75 Mg Tablet 1 Tab PO DAILY 05/17/19 Reported Bumetanide 1 Mg Tablet 1 Tab PO BID 05/17/19 Reported Tresiba (Insulin Degludec) 100 Unit/1 Ml Vial 20 Unit SQ HS 05/17/19 Reported Novolog (Insulin Aspart) 100 Unit/1 Ml Cartridge 8 Unit SQ TIDWMEALS 05/17/19 Reported Potassium Chloride 20 Meq Tablet.er 1 Tab PO DAILY 30 05/17/19 Reported Finasteride 5 Mg Tablet 5 Mg PO DAILY 12/08/18 Reported Metoprolol Succinate ( Xl ) (Metoprolol Succinate) 25 Mg Tab.er.24h 25 Mg PO DAILY 12/08/18 Reported Isosorbide Mononitrate Er (Isosorbide Mononitrate) 30 Mg Tab.er.24h 30 Mg PO DAILY 12/08/18 Reported Atorvastatin Calcium 80 Mg Tablet 80 Mg PO DAILY 12/08/18 Reported Flomax (Tamsulosin Hcl) 0.4 Mg Cap.er.24h 0.4 Mg PO BID 12/08/18 Reported Impression . 1. Bilateral pleural effusions and pulmonary edema secondary to systolic heart failure, mildly improved cxr with diuresis 2. severe PVD, S/O AMPUTATION 3. hypokalemia 4. ckd 5. CMP Plan . NEEDS PT OT UP TO CHAIR PT RESP STATUS IS COMPENSATED WILL CONTINUE THE SAME Continue diuresis. MAR RODRIGUEZ MD May 26, 2019 09:26
[2019-05-26] MEDS: DAPTOmycin (GENERIC) IVPB 320 MG in IV NORMAL SALINE 50ML 50 ML IV SCH (09:36)
[2019-05-26 10:08] VITALS: BP 121/68
--- NOTE | 2019-05-26 10:48 | PDOC ---
ANICETO BRAGG EXPORT FREIGHT SPECIALIST 05/26/19 1048: CARDIO Progress Notes Date and Time Date of Service 05/26/2019 Time of Evaluation 1030 Subjective Subjective: No Chest Pain, No shortness of breath, No Palpitations Vitals Vitals Vital Signs Date Time Temp Pulse Resp B/P (MAP) Pulse Ox O2 Delivery O2 Flow Rate FiO2 05/26/19 10:08 97.4 103 20 121/68 (85) 96 Nasal Cannula 2.0 97.4 Weight Weight [ ] Input and Output Intake and Output Intake and Output 05/26/19 07:00 Intake Total 1200 ml Output Total 2400 ml Balance -1200 ml Intake Oral 1100 ml IV Total 100 ml Output Urine Total 2400 ml Laboratory Labs Laboratory Tests Test 05/25/19 11:37 05/25/19 16:38 05/25/19 20:19 05/26/19 00:57 Glucose (Fingerstick) 162 mg/dL (70-99) 182 mg/dL (70-99) 86 mg/dL (70-99) 107 mg/dL (70-99) Test 05/26/19 05:25 05/26/19 05:30 05/26/19 07:28 White Blood Count 13.2 x10^3/uL (4.0-11.0) Red Blood Count 3.10 x10^6/uL (4.30-5.70) Hemoglobin 8.8 g/dL (13.0-17.5) Hematocrit 26.8 % (39.0-53.0) Mean Corpuscular Volume 87 fL (79-100) Mean Corpuscular Hemoglobin 28 pg (25-35) Mean Corpuscular Hemoglobin Concent 33 g/dL (31-37) Red Cell Distribution Width 16.7 % (11.5-14.5) Platelet Count 282 x10^3/uL (140-400) Neutrophils (%) (Auto) 85 % (31-73) Lymphocytes (%) (Auto) 7 % (24-48) Monocytes (%) (Auto) 7 % (0-9) Eosinophils (%) (Auto) 1 % (0-3) Basophils (%) (Auto) 0 % (0-3) Neutrophils # (Auto) 11.1 x10^3/uL (1.8-7.7) Lymphocytes # (Auto) 1.0 x10^3/uL (1.0-4.8) Monocytes # (Auto) 0.9 x10^3/uL (0.0-1.1) Eosinophils # (Auto) 0.1 x10^3/uL (0.0-0.7) Basophils # (Auto) 0.1 x10^3/uL (0.0-0.2) Sodium Level 143 mmol/L (136-145) Potassium Level 4.3 mmol/L (3.5-5.1) Chloride Level 104 mmol/L (98-107) Carbon Dioxide Level 34 mmol/L (21-32) Anion Gap 5 (6-14) Blood Urea Nitrogen 58 mg/dL (8-26) Creatinine 1.6 mg/dL (0.7-1.3) Estimated GFR (Cockcroft-Gault) 42.9 Glucose Level 133 mg/dL (70-99) Calcium Level 8.0 mg/dL (8.5-10.1) Magnesium Level 2.3 mg/dL (1.8-2.4) Glucose (Fingerstick) 124 mg/dL (70-99) Physical Exam HEENT: Neck Supple W Full Motion Chest: Symmetric LUNGS: Other (diminished bases) Heart: RRR (SR) Abdomen: Soft N/T Extremities: No Edema, No Calf Tenderness Neurology: alert, oriented, follow commands Assessment Assessment 1. Acute on chronic systolic and diastolic CHF: compensated 2. HTN - controlled 3. Anemia - stable at 8.8, post transfusion 4. Severe ICM: EF 20-25% 5. Severe PAD with diabetic ulcers: S/P LBKA POD#2 per vascular 6. Reactive sinus tach Recommendations 1. At this time family appears to want to pursue aggressive measures. Further future discussion as he is poor candidate for any LVAD or transplant. Poor halfway prognosis. Baseline wt about 76 Kg. Continue Milrinone and switch to PO bumex. LTAC select today. 2. Increase toprol 3. Secondary prevention measures. Supportive care. Will follow at [facility] ZEFERINO PISANO MD 05/26/19 1852: ANICETO BRAGG APRN May 26, 2019 10:48 ZEFERINO PISANO MD May 26, 2019 18:52
--- NOTE | 2019-05-26 11:03 | PDOC3 ---
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 The Ejection Fraction is 25-30%. Doppler and Color Flow revealed mild tricuspid regurgitation. The PA pressure was estimated at 27 mmHg. Hypertension Diabetes Urinary retention Diabetic foot infection with a recent surgery done in [place] Subtle erosive change cortical thinning at the medial most margin of the metatarsal shaft portion may be seen with osteomyelitis. PVD SEVERE CKD SEVERE PROTEIN-CALORIC MALNUTRITION Bilateral pleural effusions. Cholelithiasis. Small amount of ascites. No hydronephrosis in the kidneys. Brief Hospital Course Allergies Allergies Coded Allergies Type Severity Reaction Last Updated Verified I S O L A T I O N *CONTACT* Allergy Unknown 12/14/18 Yes No Known Medication Allergies Allergy Unknown 12/14/18 Yes Vital Signs Vital Signs Date Time Temp Pulse Resp B/P (MAP) Pulse Ox O2 Delivery O2 Flow Rate FiO2 05/26/19 10:08 97.4 103 20 121/68 (85) 96 Nasal Cannula 2.0 97.4 Lab Results Laboratory Tests Test 05/24/19 11:41 05/24/19 12:22 05/24/19 13:45 05/24/19 16:03 Glucose (Fingerstick) 68 mg/dL (70-99) 107 mg/dL (70-99) 84 mg/dL (70-99) 66 mg/dL (70-99) Test 05/24/19 17:54 05/24/19 20:39 05/24/19 23:17 05/25/19 07:35 Glucose (Fingerstick) 107 mg/dL (70-99) 163 mg/dL (70-99) 276 mg/dL (70-99) White Blood Count 15.4 x10^3/uL (4.0-11.0) Red Blood Count 3.03 x10^6/uL (4.30-5.70) Hemoglobin 8.6 g/dL (13.0-17.5) Hematocrit 26.5 % (39.0-53.0) Mean Corpuscular Volume 88 fL (79-100) Mean Corpuscular Hemoglobin 29 pg (25-35) Mean Corpuscular Hemoglobin Concent 33 g/dL (31-37) Red Cell Distribution Width 16.7 % (11.5-14.5) Platelet Count 270 x10^3/uL (140-400) Sodium Level 142 mmol/L (136-145) Potassium Level 4.4 mmol/L (3.5-5.1) Chloride Level 105 mmol/L (98-107) Carbon Dioxide Level 33 mmol/L (21-32) Anion Gap 4 (6-14) Blood Urea Nitrogen 57 mg/dL (8-26) Creatinine 1.9 mg/dL (0.7-1.3) Estimated GFR (Cockcroft-Gault) 35.2 Glucose Level 279 mg/dL (70-99) Calcium Level 7.5 mg/dL (8.5-10.1) 25-Hydroxy Vitamin D Total 22.4 ng/mL (30-100) Test 05/25/19 07:57 05/25/19 11:37 05/25/19 16:38 05/25/19 20:19 Glucose (Fingerstick) 252 mg/dL (70-99) 162 mg/dL (70-99) 182 mg/dL (70-99) 86 mg/dL (70-99) Test 05/26/19 00:57 05/26/19 05:25 05/26/19 05:30 05/26/19 07:28 Glucose (Fingerstick) 107 mg/dL (70-99) 124 mg/dL (70-99) White Blood Count 13.2 x10^3/uL (4.0-11.0) Red Blood Count 3.10 x10^6/uL (4.30-5.70) Hemoglobin 8.8 g/dL (13.0-17.5) Hematocrit 26.8 % (39.0-53.0) Mean Corpuscular Volume 87 fL (79-100) Mean Corpuscular Hemoglobin 28 pg (25-35) Mean Corpuscular Hemoglobin Concent 33 g/dL (31-37) Red Cell Distribution Width 16.7 % (11.5-14.5) Platelet Count 282 x10^3/uL (140-400) Neutrophils (%) (Auto) 85 % (31-73) Lymphocytes (%) (Auto) 7 % (24-48) Monocytes (%) (Auto) 7 % (0-9) Eosinophils (%) (Auto) 1 % (0-3) Basophils (%) (Auto) 0 % (0-3) Neutrophils # (Auto) 11.1 x10^3/uL (1.8-7.7) Lymphocytes # (Auto) 1.0 x10^3/uL (1.0-4.8) Monocytes # (Auto) 0.9 x10^3/uL (0.0-1.1) Eosinophils # (Auto) 0.1 x10^3/uL (0.0-0.7) Basophils # (Auto) 0.1 x10^3/uL (0.0-0.2) Sodium Level 143 mmol/L (136-145) Potassium Level 4.3 mmol/L (3.5-5.1) Chloride Level 104 mmol/L (98-107) Carbon Dioxide Level 34 mmol/L (21-32) Anion Gap 5 (6-14) Blood Urea Nitrogen 58 mg/dL (8-26) Creatinine 1.6 mg/dL (0.7-1.3) Estimated GFR (Cockcroft-Gault) 42.9 Glucose Level 133 mg/dL (70-99) Calcium Level 8.0 mg/dL (8.5-10.1) Magnesium Level 2.3 mg/dL (1.8-2.4) Laboratory Tests Test 05/25/19 11:37 05/25/19 16:38 05/25/19 20:19 05/26/19 00:57 Glucose (Fingerstick) 162 mg/dL (70-99) 182 mg/dL (70-99) 86 mg/dL (70-99) 107 mg/dL (70-99) Test 05/26/19 05:25 05/26/19 05:30 05/26/19 07:28 White Blood Count 13.2 x10^3/uL (4.0-11.0) Red Blood Count 3.10 x10^6/uL (4.30-5.70) Hemoglobin 8.8 g/dL (13.0-17.5) Hematocrit 26.8 % (39.0-53.0) Mean Corpuscular Volume 87 fL (79-100) Mean Corpuscular Hemoglobin 28 pg (25-35) Mean Corpuscular Hemoglobin Concent 33 g/dL (31-37) Red Cell Distribution Width 16.7 % (11.5-14.5) Platelet Count 282 x10^3/uL (140-400) Neutrophils (%) (Auto) 85 % (31-73) Lymphocytes (%) (Auto) 7 % (24-48) Monocytes (%) (Auto) 7 % (0-9) Eosinophils (%) (Auto) 1 % (0-3) Basophils (%) (Auto) 0 % (0-3) Neutrophils # (Auto) 11.1 x10^3/uL (1.8-7.7) Lymphocytes # (Auto) 1.0 x10^3/uL (1.0-4.8) Monocytes # (Auto) 0.9 x10^3/uL (0.0-1.1) Eosinophils # (Auto) 0.1 x10^3/uL (0.0-0.7) Basophils # (Auto) 0.1 x10^3/uL (0.0-0.2) Sodium Level 143 mmol/L (136-145) Potassium Level 4.3 mmol/L (3.5-5.1) Chloride Level 104 mmol/L (98-107) Carbon Dioxide Level 34 mmol/L (21-32) Anion Gap 5 (6-14) Blood Urea Nitrogen 58 mg/dL (8-26) Creatinine 1.6 mg/dL (0.7-1.3) Estimated GFR (Cockcroft-Gault) 42.9 Glucose Level 133 mg/dL (70-99) Calcium Level 8.0 mg/dL (8.5-10.1) Magnesium Level 2.3 mg/dL (1.8-2.4) Glucose (Fingerstick) 124 mg/dL (70-99) Brief Hospital Course Mr. Angel is a 68 old khmer speaking only male (family helps translate), comes in with bilateral feet wounds in a DM, essentially needing amputation by vasc sx 2 days prior to dc (05/24/19)./ HE needs IV abx pICC co managed with ID and so ltac, HE also has EF 25% was on milrinone gtt per cards and now dc on PO bumex 1 mg PO BID per cards, All other meds (se mrad),NO soa, very pleasant, fuill code, Other course can bee seen above on my above dx Cosnults: ID, vasc sx, CArds PRoc; Left BKA, milrinone gtt Discharge Information Condition at Discharge: Improved, Stable Disposition/Orders: Other (ltac) Scheduled Atorvastatin Calcium (Atorvastatin Calcium) 80 Mg Tablet, 80 MG PO DAILY for FOR CHOLESTEROL, #30 Ref 0 (Reported) Entered as Reported by: NERY CRANE on 12/08/18158 Last Action: Converted on 05/17/191208 by ELINA BRITO Bumetanide (Bumetanide) 1 Mg Tablet, 1 TAB PO BID for CHF, #90 Ref 1 (Reported) Entered as Reported by: ELINA BRITO on 05/17/191154 Last Action: Continued on 05/17/191208 by ELINA BRITO Clopidogrel Bisulfate (Clopidogrel) 75 Mg Tablet, 1 TAB PO DAILY for PPX, #90 Ref 1 (Reported) Entered as Reported by: ELINA BRITO on 05/17/191154 Last Action: Continued on 05/17/191208 by ELINA BRITO Finasteride (Finasteride) 5 Mg Tablet, 5 MG PO DAILY for heart health, (Reported) Entered as Reported by: NERY CRANE on 12/08/18210 Last Action: Continued on 05/17/191208 by ELINA BRITO Insulin Aspart (Novolog) 100 Unit/1 Ml Cartridge, 8 UNIT SQ TIDWMEALS for DM, (Reported) Entered as Reported by: ELINA BRITO on 05/17/191154 Last Action: Converted on 05/17/191208 by ELINA BRITO Insulin Degludec (Tresiba) 100 Unit/1 Ml Vial, 20 UNIT SQ HS for DM, (Reported) Entered as Reported by: ELINA BRITO on 05/17/191154 Last Action: Converted on 05/17/191208 by ELINA BRITO Isosorbide Mononitrate (Isosorbide Mononitrate Er) 30 Mg Tab.er.24h, 30 MG PO DAILY for heart health, (Reported) Entered as Reported by: NERY CRANE on 12/08/18 0200 Last Action: Continued on 05/17/191208 by ELINA BRITO Metolazone (Metolazone) 5 Mg Tablet, 5 MG PO DAILY for ppx, #30 Ref 0 (Reported) Entered as Reported by: ELINA BRITO on 05/17/191154 Last Action: Converted on 05/17/191208 by ELINA RBITO Metoprolol Succinate (Metoprolol Succinate ( Xl )) 25 Mg Tab.er.24h, 25 MG PO DAILY for FOR HYPERTENSION, #30 Ref 0 (Reported) Entered as Reported by: NERY CRANE on 12/08/18 0201 Last Action: Continued on 05/17/191208 by ELINA BRITO Potassium Chloride (Potassium Chloride) 20 Meq Tablet.er, 1 TAB PO DAILY for supplement for 30 Days, #30 Ref 0 (Reported) Entered as Reported by: ELINA BRITO on 05/17/191154 Last Action: Converted on 05/17/191208 by ELINA BRITO Tamsulosin Hcl (Flomax) 0.4 Mg Cap.er.24h, 0.4 MG PO BID for prostate , (Reported) Entered as Reported by: NERY CRANE on 12/08/18 0141 Last Action: Continued on 05/17/191208 by ELINA BRITO Miscellaneous Medications [e] , (Reported) Entered as Reported by: ELINA BRITO on 05/17/191154 Last Action: New Order on 05/17/191154 by DEDE DE LA GARZA MD May 26, 2019 11:03
--- NOTE | 2019-05-26 11:06 | NUR ---
SS following up with discharge planning. Discharge orders received for [facility], ; fax [phone]. SS phoned and faxed discharge orders to [facility]. Pt will discharge today and go to [facility] at 1500 via [facility], . Pt, pt's RN, and pt's family notified.
--- NOTE | 2019-05-26 11:35 | PDOC ---
Subjective: Subjective: No GI complaints, eating okay. Objective: Vital Signs: Vital Signs Date Time Temp Pulse Resp B/P (MAP) Pulse Ox O2 Delivery O2 Flow Rate FiO2 05/26/19 10:08 97.4 103 20 121/68 (85) 96 Nasal Cannula 2.0 97.4 Labs: Laboratory Tests Test 05/25/19 11:37 05/25/19 16:38 05/25/19 20:19 05/26/19 00:57 Glucose (Fingerstick) 162 mg/dL 182 mg/dL 86 mg/dL 107 mg/dL Test 05/26/19 05:25 05/26/19 05:30 05/26/19 07:28 White Blood Count 13.2 x10^3/uL Red Blood Count 3.10 x10^6/uL Hemoglobin 8.8 g/dL Hematocrit 26.8 % Mean Corpuscular Volume 87 fL Mean Corpuscular Hemoglobin 28 pg Mean Corpuscular Hemoglobin Concent 33 g/dL Red Cell Distribution Width 16.7 % Platelet Count 282 x10^3/uL Neutrophils (%) (Auto) 85 % Lymphocytes (%) (Auto) 7 % Monocytes (%) (Auto) 7 % Eosinophils (%) (Auto) 1 % Basophils (%) (Auto) 0 % Neutrophils # (Auto) 11.1 x10^3/uL Lymphocytes # (Auto) 1.0 x10^3/uL Monocytes # (Auto) 0.9 x10^3/uL Eosinophils # (Auto) 0.1 x10^3/uL Basophils # (Auto) 0.1 x10^3/uL Sodium Level 143 mmol/L Potassium Level 4.3 mmol/L Chloride Level 104 mmol/L Carbon Dioxide Level 34 mmol/L Anion Gap 5 Blood Urea Nitrogen 58 mg/dL Creatinine 1.6 mg/dL Estimated GFR (Cockcroft-Gault) 42.9 Glucose Level 133 mg/dL Calcium Level 8.0 mg/dL Magnesium Level 2.3 mg/dL Glucose (Fingerstick) 124 mg/dL PE: GEN: NAD LUNGS: CTAB HEART: RRR ABD: S/ND/NT NEURO/PSYCH: A & O 3 A/P: PVD, DM, s/p left BKA ACD/GENESIS -- Dc per primary. Follow-up eventually for outpt EGD and colonoscopy. JOHN BRYSON May 26, 2019 11:35
--- NOTE | 2019-05-26 11:52 | PDOC ---
SUBJECTIVE ROS S/P Lt BKA 05/24 , stable OBJECTIVE Vital Signs Vital Signs Date Time Temp Pulse Resp B/P (MAP) Pulse Ox O2 Delivery O2 Flow Rate FiO2 05/26/19 10:08 97.4 103 20 121/68 (85) 96 Nasal Cannula 2.0 97.4 I & 0 Intake and Output 05/26/19 07:00 Intake Total 1200 ml Output Total 2400 ml Balance -1200 ml Intake Oral 1100 ml IV Total 100 ml Output Urine Total 2400 ml PHYSICAL EXAM Physical Exam GENERAL: alert, NAD HEENT: Oral cavity moist NECK: Supple. LUNGS: Clear. HEART: S1, S2 regular. 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 Stable renal function FU with nephrology as OP (Non urgent) Proteinuria: Non-nephrotic range Anemia: Multiple PRBC, per daughter recently PRBC x3 when he was visiting [place] Never had colonoscopy, Tsat low . GI planning EGD and Colonoscopy as OP Poole and Lambda high, ratio normal (could be sec to ckd), SPEP pending Would recommend Hem/onc Consult - can be seen as OP HTN: Defer to cardiology to optimize from cardiomyopathy standpoint Cardiomyopathy with EF of 25%: Patient has small pleural effusions and he remains on inotropes at this time. Cardiology managing - Milrinone and diuretics Diabetes: deferred to primary team Severe hypoalbuminemia: Suspect early due to ongoing infection and once. Protein creatinine ratio is only 1.4 g Dw Daughter and RN COMMENT/RELEVANT DATA Meds Current Medications Medications (Trade) Dose Ordered Sig/Rose Start Time Stop Time Status Last Admin Dose Admin Acetaminophen (Tylenol) 500 mg PRN Q6HRS PRN 05/24/19 09:15 Acetaminophen/ Codeine Phosphate (Tylenol #3) 1 tab PRN Q6HRS PRN 05/24/19 09:15 Ascorbic Acid (Vitamin C) 500 mg DAILY 05/25/19 09:00 05/26/19 08:59 500 MG Aspirin (Ecotrin) 81 mg [id number] 05/21/19 12:45 05/23/19 08:40 DC 05/22/19 08:19 81 MG Atorvastatin Calcium (Lipitor) 80 mg QHS 05/17/19 21:00 05/25/19 20:21 80 MG Bumetanide (Bumex) 1 mg [id number] 05/26/19 16:00 Clopidogrel Bisulfate (Plavix) 75 mg DAILY 05/18/19 09:00 05/26/19 08:58 75 MG Daptomycin 320 mg/ Sodium Chloride 50 ml @ 100 mls/hr Q24H 05/19/19 09:45 05/26/19 09:36 100 MLS/HR Dextrose (Dextrose 50%-Water Syringe) 25 gm STK-MED ONCE 05/24/19 16:22 05/24/19 16:22 DC Diphenhydramine HCl (Benadryl) 25 mg PRN 1X PRN 05/22/19 06:30 05/25/19 15:03 DC Etomidate (Amidate) 20 mg STK-MED ONCE 05/24/19 15:20 05/24/19 15:20 DC Fentanyl Citrate (Fentanyl 2ml Vial) 100 mcg STK-MED ONCE 05/24/19 12:43 05/24/19 12:44 DC Ferrous Sulfate (Feosol) 325 mg BIDWMEALS 05/25/19 17:00 05/26/19 08:58 325 MG Finasteride (Proscar) 5 mg DAILY 05/18/19 09:00 05/26/19 08:58 5 MG Furosemide (Lasix) 40 mg [id number] 05/21/19 14:00 05/26/19 10:44 DC 05/26/19 09:03 40 MG Hydromorphone HCl (Dilaudid) 0.5 mg PRN Q10MIN PRN 05/24/19 08:30 05/25/19 08:29 DC Insulin Glargine (Lantus Syringe) 20 unit QHS 05/17/19 21:00 05/24/19 23:23 20 UNIT Insulin Human Lispro (HumaLOG) 0-9 UNITS TIDWMEALS 05/24/19 12:00 05/25/19 17:26 4 UNITS Isosorbide Mononitrate (Imdur) 30 mg DAILY 05/18/19 09:00 05/21/19 12:44 DC 05/21/19 12:07 30 MG Lactobacillus Rhamnosus (Culturelle) 1 cap BID 05/18/19 21:00 05/26/19 08:58 1 CAP Lidocaine HCl (Buffered Lidocaine 1%) 3 ml 1X ONCE 05/19/19 11:00 05/19/19 11:01 DC 05/19/19 11:11 5 ML Lidocaine HCl (Lidocaine Pf 2% Vial) 5 ml STK-MED ONCE 05/24/19 15:20 05/24/19 15:20 DC Linezolid (Zyvox) 600 mg BID 05/17/19 14:00 05/19/19 09:36 DC 05/19/19 08:19 600 MG Meropenem 500 mg/ Sodium Chloride 50 ml @ 100 mls/hr Q8HRS 05/17/19 14:00 05/26/19 05:14 100 MLS/HR Metolazone (Zaroxolyn) 5 mg DAILY 05/18/19 09:00 05/21/19 12:44 DC 05/21/19 12:06 5 MG Metoprolol Succinate (Toprol Xl) 50 mg DAILY 05/27/19 09:00 Milrinone Lactate/ Dextrose 100 ml @ 2.977 mls/ hr CONT PRN 05/21/19 12:45 05/25/19 13:35 2.977 MLS/HR Morphine Sulfate (Morphine Sulfate) 2 mg STK-MED ONCE 05/24/19 18:18 05/24/19 18:18 DC Multivitamins (Thera M Plus) 1 tab DAILY 05/19/19 11:00 05/26/19 08:58 1 TAB Ondansetron HCl (Zofran) 4 mg STK-MED ONCE 05/24/19 16:03 05/24/19 16:03 DC Oxycodone/ Acetaminophen (Percocet 5/325) 1 tab PRN Q4HRS PRN 05/25/19 08:30 05/25/19 20:24 1 TAB Phenylephrine HCl (PHENYLEPHRINE in 0.9% NACL PF) 1 mg STK-MED ONCE 05/24/19 16:48 05/24/19 16:48 DC Polyethylene Glycol (miraLAX PACKET) 17 gm PRN DAILY PRN 05/25/19 10:30 Potassium Chloride/Water 50 ml @ 50 mls/hr Q1H 05/24/19 17:00 05/24/19 18:59 DC 05/24/19 20:17 50 MLS/HR Potassium Chloride (Klor-Con) 20 meq DAILYWBKFT 05/18/19 08:00 05/26/19 08:59 20 MEQ Prochlorperazine Edisylate (Compazine) 5 mg PACU PRN PRN 05/24/19 08:30 05/25/19 08:29 DC Ringer's Solution 1,000 ml @ 30 mls/hr Q24H 05/24/19 08:28 05/24/19 20:27 DC 05/24/19 16:30 30 MLS/HR Rocuronium [place] (Zemuron) 50 mg STK-MED ONCE 05/24/19 12:40 05/24/19 12:40 DC Sevoflurane (Ultane) 30 ml STK-MED ONCE 05/24/19 16:03 05/24/19 16:03 DC Sodium Hypochlorite (Dakin'S 1/4 Strength) 1 yg DAILY 05/17/19 13:30 05/21/19 12:37 DC 05/18/19 12:40 1 YG Sodium Chloride 1,000 ml @ 75 mls/hr [id number] 05/17/19 12:00 05/19/19 15:49 DC 05/18/19 21:44 75 MLS/HR Tamsulosin HCl (Flomax) 0.4 mg BID 05/17/19 21:00 05/26/19 08:58 0.4 MG Vitamin D (Vitamin D3) 5,000 unit DAILY 05/25/19 16:15 05/26/19 08:58 5,000 UNIT Lab Laboratory Tests Test 05/25/19 16:38 05/25/19 20:19 05/26/19 00:57 05/26/19 05:25 Glucose (Fingerstick) 182 mg/dL (70-99) 86 mg/dL (70-99) 107 mg/dL (70-99) White Blood Count 13.2 x10^3/uL (4.0-11.0) Red Blood Count 3.10 x10^6/uL (4.30-5.70) Hemoglobin 8.8 g/dL (13.0-17.5) Hematocrit 26.8 % (39.0-53.0) Mean Corpuscular Volume 87 fL (79-100) Mean Corpuscular Hemoglobin 28 pg (25-35) Mean Corpuscular Hemoglobin Concent 33 g/dL (31-37) Red Cell Distribution Width 16.7 % (11.5-14.5) Platelet Count 282 x10^3/uL (140-400) Neutrophils (%) (Auto) 85 % (31-73) Lymphocytes (%) (Auto) 7 % (24-48) Monocytes (%) (Auto) 7 % (0-9) Eosinophils (%) (Auto) 1 % (0-3) Basophils (%) (Auto) 0 % (0-3) Neutrophils # (Auto) 11.1 x10^3/uL (1.8-7.7) Lymphocytes # (Auto) 1.0 x10^3/uL (1.0-4.8) Monocytes # (Auto) 0.9 x10^3/uL (0.0-1.1) Eosinophils # (Auto) 0.1 x10^3/uL (0.0-0.7) Basophils # (Auto) 0.1 x10^3/uL (0.0-0.2) Test 05/26/19 05:30 05/26/19 07:28 Sodium Level 143 mmol/L (136-145) Potassium Level 4.3 mmol/L (3.5-5.1) Chloride Level 104 mmol/L (98-107) Carbon Dioxide Level 34 mmol/L (21-32) Anion Gap 5 (6-14) Blood Urea Nitrogen 58 mg/dL (8-26) Creatinine 1.6 mg/dL (0.7-1.3) Estimated GFR (Cockcroft-Gault) 42.9 Glucose Level 133 mg/dL (70-99) Calcium Level 8.0 mg/dL (8.5-10.1) Magnesium Level 2.3 mg/dL (1.8-2.4) Glucose (Fingerstick) 124 mg/dL (70-99) Results All relevant outside records, renal labs, imaging studies, telemetry/EKG's were reviewed. JULIANA DENSON MD May 26, 2019 11:52
[2019-05-26] MEDS ORDERED: METO-239 PO (12:34)
--- NOTE | 2019-05-26 14:05 | PDOC ---
Provider Note Provider Note S: POD #2 of left BKA Patient seen and examined and with family bedside, who assisted with interpretation. Patient reports no complaints. He reports his pain is minimal. He is up in chair with rooke boot on. O: Vital signs stable, tachycardic rate 100, afebrile Awake, alert, in no apparent distress Respirations unlabored Left BKA dressing Removed. Incision clean, dry and intact. Edges approximate well. Surrounding skin without erythema or signs of irritation or infection. Left knee can fully extend to 180, pt can actively flex and extend. Right foot dressing removed, dorsal superficial wound mostly yellow at base, wound edges clean, no areas of fluctuance or drainage. Mild surrounding swelling and erythema. Tenderness to palpation. No bone/tendon exposure. A/P: Severe diabetic foot infection of the left lower extremity Osteomyelitis Anemia, stable, 8.8 today Diabetes POD#2 of Left BKA - Pt doing well post operatively, ok for discharge from vascular surgery standpoint once medically stable and with continued PO abx per ID for right foot wound. He will need continued aggressive PT at facility. - Continue local wound care to right foot wound His follow up appt is on 06/[address] Schofield at our [place] office. Discussed signs to watch for, follow up instructions and post op care with daughter and pt. DAYANA WINTER May 26, 2019 14:05
[2019-05-26 14:10] LABS: ALBUM 1.9 g/dL (2.9-4.4); ALPHA 1 0.4 g/dL (0.0-0.4); ALPHA 2 0.9 g/dL (0.4-1.0); BETA 0.9 g/dL (0.7-1.3); GAMMA 1.1 g/dL (0.4-1.8); PROTEIN TOTAL 5.1 g/dL (6.0-8.5); SPEP AG RATIO 0.6 (0.7-1.7)
[2019-05-26] MEDS ORDERED: ACET500T68 PO (14:35)
[2019-05-26] MEDS ORDERED: ACET1TAB33 PO (14:36)
[2019-05-26] MEDS ORDERED: ASCO500T2 PO (14:38)
[2019-05-26] MEDS ORDERED: CHOL500062 PO (14:41)
[2019-05-26] MEDS ORDERED: DAPT350V IV ×2 (14:43→14:56)
[2019-05-26] MEDS ORDERED: FERR325T14 PO (14:58)
[2019-05-26] MEDS ORDERED: LACT1CAP19 PO (14:59)
[2019-05-26] MEDS ORDERED: MERO500V15 IV (15:02)
[2019-05-26] MEDS ORDERED: MILR20PI IV (15:05)
[2019-05-26] MEDS ORDERED: MULT-638 PO (15:09)
[2019-05-26] MEDS ORDERED: ONDA4DIS IV (15:13)
[2019-05-26] MEDS ORDERED: POLY2500 PO (15:15)
[2019-05-26] MEDS ORDERED: [UNRECOGNIZED DRUG - CODE] IV (15:18)
[2019-05-26] MEDS ORDERED: OXYC-325 PO (15:19)
[2019-05-26] MEDS ORDERED: BUMETANIDE 1 MG TABLET. PO SCH (16:00)
--- NOTE | 2019-05-26 16:40 | NUR ---
Discharge Note: KELI GIRON [address] [place] [address] Discharge instructions and discharge home medications reviewed with Other facility and a copy given. All questions have been answered and understanding verbalized. The following instructions and handouts were given: discharge instructions, CHF info, PVD, wound care, & amputation info. Discontinued lines and drains: Peripheral IV intact. [facility] via [facility] at 1640. Report had been given to CONCHA Wheeler at [facility] at 6745.
[2019-05-27] MEDS ORDERED: METOPROLOL SUCC 24HR ER 25 MG TAB.ER.24H. PO SCH (09:00)
--- NOTE | 2019-05-28 12:07 | PATHOLOGY ---
[facility] Accession Number: [id number] . 01 Material submitted: . leg - LEFT LEG BELOW THE KNEE. Modifiers: left . 02 Diagnosis: Left leg below knee amputation: - Extensive area of ulceration of foot and leg with ischemic necrosis of skin and subcutaneous tissue and acute cellulitis. - Acute osteomyelitis of bone deep to foot ulcer. - Status post left great toe amputation. - Marked calcific changes and focal moderate to marked luminal stenosis of anterior and posterior tibial arteries. - Proximal skin and subcutaneous tissue of amputation margin viable. (JPM:viviana; 05/27/2019) MBR 05/28/2019 1110 Local . 02 Electronically signed: . Calvin Cardozo MD, Pathologist NPI- [id number] . 01 Gross description: . Received fresh in a red biohazard bag labeled "Umair Ocasio, left leg below knee" is a left below the knee amputation measuring 26.0 cm heel to proximal skin soft tissue margin and 24.6 cm heel to second toe. 4 toes are present with the exception of the first big toe. Protruding from the margin is the tibia (3.5 cm in length and 3.5 cm in width) and fibula (3.5 cm in length and 1.2 cm in width). The second toe shows extensive mummification measuring 2.7 x 1.9 cm. The medial plantar and dorsal aspects of the foot show a large ulcer that extends up the leg to within 6.5 cm of the skin soft tissue margin. The overall ulcer measures 25.0 x 14.0 and extends 1.5 cm deep into the foot. The underlying bone and soft tissue is exposed. The anterior and posterior tibial vasculature displays calcified stenotic lumens. Bobbin Winder sections are submitted as follows: . A1: Ulcer A2: Proximal skin soft tissue margin A3: Bone deep to medial foot ulcer A4: Anterior and posterior vasculatures A3 and A4 will be submitted following decalcification. (SDY; 05/26/2019) SYU/SYU 05/27/2019 1646 Local . 02 Pathologist provided ICD-10: M86.162, L03.116, I96 . 02 CPT . 118080, 240080 Specimen Comment: A courtesy copy of this report has been sent to [phone], [phone] Specimen Comment: [id number] Specimen Comment: Report sent to and Performed at: 01 [facility] [address] [facility] [address], [place] [id number] MD Angel Ponce MD Phone: [phone] Performed at: 02 [facility] [address] [place], [place] [id number] MD Calvin Cardozo MD Phone: [phone]
== END 2019-05-26 16:40 | DRG 239 ==
LOC: 5 SOUTH 10:58 → 2 NORTH 05-21 14:35
PROVIDERS: ADMIT Internal Medicine; ATTEND Internal Medicine
PROC: 0Y6J0Z1 Detachment at Left Lower Leg, High, Open Approach (ICD-10-PCS; principal; 2019-05-17)
PROC: 02HV33Z Insertion of Infusion Device into Superior Vena Cava, Percutaneous Approach (ICD-10-PCS; 2019-05-19)
PROC: B548ZZA Ultrasonography of Superior Vena Cava, Guidance (ICD-10-PCS; 2019-05-19)
PROC: B5181ZA Fluoroscopy of Superior Vena Cava using Low Osmolar Contrast, Guidance (ICD-10-PCS; 2019-05-19)
DX: E11.52 Type 2 diabetes mellitus with diabetic peripheral angiopathy with gangrene (principal); E43 Unspecified severe protein-calorie malnutrition; I50.43 Acute on chronic combined systolic (congestive) and diastolic (congestive) heart failure; I13.0 Hypertensive heart and chronic kidney disease with heart failure and stage 1 through stage 4 chronic kidney disease, or unspecified chronic kidney disease; N17.9 Acute kidney failure, unspecified; M86.8X7 Other osteomyelitis, ankle and foot; M86.9 Osteomyelitis, unspecified; E11.621 Type 2 diabetes mellitus with foot ulcer; E11.69 Type 2 diabetes mellitus with other specified complication; D50.9 Iron deficiency anemia, unspecified; E11.22 Type 2 diabetes mellitus with diabetic chronic kidney disease; E11.622 Type 2 diabetes mellitus with other skin ulcer; E11.628 Type 2 diabetes mellitus with other skin complications; E78.5 Hyperlipidemia, unspecified; E87.6 Hypokalemia; I25.10 Atherosclerotic heart disease of native coronary artery without angina pectoris; I25.5 Ischemic cardiomyopathy; K80.20 Calculus of gallbladder without cholecystitis without obstruction; L97.529 Non-pressure chronic ulcer of other part of left foot with unspecified severity; N18.9 Chronic kidney disease, unspecified; N40.1 Benign prostatic hyperplasia with lower urinary tract symptoms; Z79.4 Long term (current) use of insulin; Z82.49 Family history of ischemic heart disease and other diseases of the circulatory system; Z83.3 Family history of diabetes mellitus; Z86.73 Personal history of transient ischemic attack (TIA), and cerebral infarction without residual deficits; Z95.5 Presence of coronary angioplasty implant and graft; M19.90 Unspecified osteoarthritis, unspecified site; Z68.27 Body mass index [BMI] 27.0-27.9, adult
CPT/HCPCS: 36415; 36573; 71045; 73620; 76700; 77001; 80048; 80053; 82306; 82570; 82728; 82803; 82962; 83520; 83540; 83550; 83735; 83880; 84100; 84156; 84165; 85007; 85025; 85027; 85651; 86850; 86900; 86901; 86920; 93306; A7015; C1751; C1892; J0878; J1815; J1940; J2001; J2185; J2260; J2270; J2370; J2405; J3010; J3480; J7030; J7042; J7120; P9016; 97110; 97530; A4461; G0378